=== PATIENT | male | born 1960 | race Caucasian/White ===

== ENCOUNTER 2020-06-15 08:09 | Emergency (ER) | payer MEDICARE, SELFPAY ==
[2020-06-15] VITALS (12 sets, daily range): BP systolic 141–175; BP diastolic 100–119; PULSE 89–130; RESP 14–90; O2SAT 92–100; BMI 28.7
--- NOTE | 2020-06-15 08:15 | CT_ITS ---
WS: [id number] CT HEAD NONCONTRAST HISTORY: AMS/new onset seizures TECHNIQUE: Contiguous axial imaging performed through the brain in 2.5 mm imaging. Bone and soft tiss ue windows. Sagittal and coronal reformats reviewed. All CT scans at [facility] use at le ast one of these dose optimization techniques: automated exposure control; mA and/or kV adjustment pe r patient size (includes targeted exams where dose is matched to clinical indication); or iterative r econstruction. DLP: 873.59 mGy.cm COMPARISON: None available. No acute intracranial hemorrhage, midline shift or mass effect. No atrophy or prior infarcts or herniation. Ventricles: Normal size with no hydrocephalus. Paranasal sinuses: Small amount mucoperiosteal thickening LEFT maxillary sinus. No air-fluid levels. Mastoid air cells: Well pneumatized. Calvarium and scalp: Skull is intact with no soft tissue edema or swelling. CT/CT head wo con* [id number] IMPRESSION: 1. No acute intracranial hemorrhage or edema. 2. Sapp-white matter differentiation intact.
--- NOTE | 2020-06-15 08:15 | ECG_ITS ---
[facility] Test Date: 2020-06-15 Pat Name: Ang Yadav Department: Room: Gender: Male Drill Press Hand: : 1960 Requested By: Shay Peterson Order Number: [id number] Nicholas MD: Judith Blanc M.D. Measurements Intervals [place] Rate: 125 P: NV: QRS: 88 QRSD: 109 T: 58 QT: 348 QTc: 503 Interpretive Statements POSSIBLY SINUS TACHYCARDIA MODERATE ST DEPRESSION [0.05+ mV ST DEPRESSION] No previous ECG available for comparison Electronically Signed On 06-16-2020 13:50:35 MOTOR BIKE MECHANIC by Judith Blanc M.D. [email or web address]
--- NOTE | 2020-06-15 08:23 | ED_ITS ---
HPI - Seizure General: Chief Complaint: Seizure Stated Complaint: AMS/ PAIN Time Seen by Provider: 06/15/20 08:15 History of Present Illness: HPI Narrative: 59-year-old male with a history of chronic back pain with radicular symptoms and aortic aneurysm. Patient had altered mental status this morning and EMS was called on arrival he was somewhat combative and confused. As they arrived at the hospital patient began having tonic-clonic seizures which I witnessed in the trauma bay. Lasted for approximately 2 minutes. Family reported he is not had a history of seizures in the past. He is on gabapentin for chronic pain. Patient is postictal when he seen cannot provide any history. MD complaint: seizure Onset (ago): hour(s) Description of Episode: loss of consciousness and tonic-clonic movement Duration of episode: 2 -: minutes(s) Witnessed: Yes - by Other (myself) Trauma: No Seizure History: No Place: Home Treatments prior to arrival: none Review of Systems General: Reports: ROS unobtainable due to medical condition PFSH ED PFSH: Medical History Spinal cord injury Physical Exam HENMT: COMMON NORMALS: normocephalic and atraumatic HEAD & SCALP: normocephalic and atraumatic Neck/C-Spine: COMMON NORMALS: no JVD Resp: COMMON NORMALS: normal respiratory effort, No retractions, No use of accessory muscles and clear to auscultation bilaterally AUSCULTATION: clear to auscultation bilaterally Cardio: COMMON NORMALS: no JVD, regular rate, regular rhythm and No murmurs present (Cardio) RATE: regular rate RHYTHM: regular rhythm GI: COMMON NORMALS: Soft to palpation and No hepatosplenomegaly present AUSCULTATION: Yes normoactive bowel sounds PALPATION: Yes Soft to palpation, No Tenderness to palpation present (GI), No Guarding due to palpation present (GI) and Yes No hepatosplenomegaly present Extremity: COMMON NORMALS: normal to inspection, capillary refill normal, no clubbing, cyanosis or edema, no calf tenderness and no pedal edema Neuro: OTHER: Witnessed 2-minute seizure on arrival. Patient is postictal at this time Skin: COMMON NORMALS: no rashes or lesions noted GENERAL SKIN EXAM: no rashes or lesions noted Procedures Intubation sedative: Etomidate Mg Given: 30 paralytic: Succinylcholine Mg Given: 100 Laryngoscope: fiber optic video scope Assist Device Used: fiber optic device ET Tube Size: 8.5 ET Tube Uncuffed: No Tube Secured Depth (cm): 22 Tube Secured Location: teeth Tube Placement Confirmation: visualized tube passing through cords, equal breath sounds bilaterally, no breath sounds over epigastrium and confirmation by capnometry Patient Tolerated Procedure: well Intubation Complications: none Lumbar Puncture Time Out Performed: Yes Patient Position: left lateral decubitus Skin Prep: Povidone-Iodine 1% Local Anesthetic: lidocaine 1% Amount of anesthesia used (mL): 3 Spinal Needle Gauge: 22G Interspace Used: L3-L4 Fluid Initially Obtained: clear Complications: none Course Vital Signs: Vital signs: Vital Signs Pulse Rate 89 06/15/20 15:26 Respiratory Rate 14 06/15/20 15:26 Blood Pressure 169/118 06/15/20 15:26 Pulse Oximetry 92 06/15/20 15:26 MDM - Seizure MDM Narrative: Medical decision making narrative: Patient had several more seizures while he was here he was titrated up with Ativan and then he began having respiratory difficulty he was emergently intubated and then maintained on sedation. At various times he is a little difficult to sedate ultimately was transferred to [facility] to the neuro unit for further evaluation lumbar tap was done which was negative fluid was clear there is no sign of infection. Concerned about sepsis needs further evaluation for his seizures we have no available ICU beds here. Lab Data: Labs: Lab Results 06/15/20 06/15/20 06/15/20 Range/Units 07:55 07:55 07:55 WBC 24.2 H (4.0-10.0) 10^3/ uL RBC 5.48 H (4.1-5.3) 10^6/u L Hgb 16.8 H (11.7-16.6) g/dL Hct 50.5 (42.0-52.0) % MCV 92.2 (80-94) fL MCH 30.7 (28.0-34.0) pg MCHC 33.3 (30.0-36.0) g/dL RDW 12.8 (12.1-15.1) % Plt Count 326 (130-400) 10^3/c mm MPV 11.3 H (7.4-10.4) fL Neut % (Auto) 78.1 % Lymph % (Auto) 12.6 % [place] % (Auto) 5.9 % Eos % (Auto) 0.6 % Baso % (Auto) 0.4 % Neut # (Auto) 18.90 H (1.8-7.7) 10^3/u L Lymph # (Auto) 3.0 (0.8-4.8) 10^3/u L [place] # (Auto) 1.4 H (0.2-0.9) 10^3/u L Eos # (Auto) 0.1 (0.0-0.8) 10^3/u L Baso # (Auto) 0.1 (0.0-0.1) 10^3/u L Nucleated RBC % (a uto) 0 % Nucleated RBCs # 0.0 /100WBC PT (12.1-14.9) SECO NDS INR (0.8-1.2) APTT (23.9-36.7) SECO NDS Specimen Type Sample Site ABG pH (7.35-7.45) ABG pCO2 (35-45) mmHg ABG pO2 (80.0-100.0) mmH g ABG HCO3 (22-26) mmol/L ABG O2 Saturation ABG Base Excess (-2.0-2.0) mmol/ L Joe Test A-a O2 Gradient Hematocrit (42-52) % Hgb O2 Saturation (95-100) % Carboxyhemoglobin (0.4-20.1) %THgb Methemoglobin (0.4-1.5) % Total Hemoglobin (14-18) g/dL Ionized Calcium (1.1-1.4) mmol/L O2 Delivery Device FiO2 % Specimen Drawn By Aws Software Development Engineer ID Crit Value Read Ba ck Blood Gas Notified Time Sodium 141 (136-145) mmol/L Potassium 3.7 (3.5-5.1) mmol/L Chloride 100 (98-107) mmol/L Carbon Dioxide 20 L (22-29) mmol/L Anion Gap 24.7 H (5-19) BUN 18 (6-20) mg/dL Creatinine 0.9 (0.7-1.2) mg/dL GFR Calculation 87.0 L (90-130) mL/min Glucose 109 (65-115) mg/dL Calculated Osmolal ity 294 (285-295) mOsm/k g Lactate (0.5-2.2) mmol/L Calcium 10.3 (8.5-10.5) mg/dL Magnesium 2.0 (1.7-2.3) mg/dL Total Bilirubin 0.6 (0.15-1.2) mg/dL AST 20 (0-40) U/L ALT 15 (0-41) U/L Alkaline Phosphata se 131 H (40-130) IU/L Creatine Kinase 217 (39-308) U/L Troponin T Baselin e 25 H (0-15) ng/L Troponin T 120 Min [place] (0-15) ng/L Delta Troponin T (0-10) ABS# Total Protein 7.8 (6.6-8.7) g/dL Albumin 4.8 (3.5-5.2) g/dL Globulin 3.0 (1.3-4.6) g/dL Urine Color (Yellow) Urine Appearance (CLEAR) Urine pH (5-7) Ur Specific Gravit y (1.005-1.030) Urine Protein (Negative) Urine Glucose (UA) (Normal) Urine Ketones (Negative) Urine Blood (Negative) Urine Nitrate (Negative) Urine Bilirubin (Negative) Urine Urobilinogen (Negative) mg/dL Ur Leukocyte Maude ase (Negative) Urine RBC (0-2) /hpf Urine WBC (0-5) /hpf Ur Squamous Epith Cells (0-5) /hpf Amorphous Sediment Urine Bacteria (NONE) /hpf Urine Mucus /hpf Urine Sperm /hpf CSF Appearance (CLEAR) CSF Color (COLORLESS) CSF WBC (0-5) /uL CSF RBC (0-0) 10^3/uL CSF Mononuclear # Auto (50-90) 10^3/uL CSF Mononuclear WB Cs % (50-90) % CSF Polynuclear WB Cs # (0-10) 10^3/uL CSF Polynuclear WB Cs % (0-10) % CSF Total Protein (15-45) mg/dL Urine Opiates Scre en (Negative) ng/mL Ur Barbiturates Sc reen (Negative) ng/mL Ur Phencyclidine S crn (Negative) ng/mL Ur Amphetamines Sc reen (Negative) ng/mL U Benzodiazepines Scrn (Negative) ng/mL Urine Cocaine Scre en (Negative) ng/mL U Marijuana (THC) Screen (Negative) ng/mL SARS-CoV-2 Ag (Rap id) (Negative) 06/15/20 06/15/20 06/15/20 Range/Units 08:49 09:00 09:17 WBC (4.0-10.0) 10^3/ uL RBC (4.1-5.3) 10^6/u L Hgb (11.7-16.6) g/dL Hct (42.0-52.0) % MCV (80-94) fL MCH (28.0-34.0) pg MCHC (30.0-36.0) g/dL RDW (12.1-15.1) % Plt Count (130-400) 10^3/c mm MPV (7.4-10.4) fL Neut % (Auto) % Lymph % (Auto) % [place] % (Auto) % Eos % (Auto) % Baso % (Auto) % Neut # (Auto) (1.8-7.7) 10^3/u L Lymph # (Auto) (0.8-4.8) 10^3/u L [place] # (Auto) (0.2-0.9) 10^3/u L Eos # (Auto) (0.0-0.8) 10^3/u L Baso # (Auto) (0.0-0.1) 10^3/u L Nucleated RBC % (a uto) % Nucleated RBCs # /100WBC PT (12.1-14.9) SECO NDS INR (0.8-1.2) APTT (23.9-36.7) SECO NDS Specimen Type Arterial Sample Site Rr ABG pH 7.28 L (7.35-7.45) ABG pCO2 42.6 (35-45) mmHg ABG pO2 453.0 H (80.0-100.0) mmH g ABG HCO3 19.8 L (22-26) mmol/L ABG O2 Saturation Not Reportable ABG Base Excess -6.8 L (-2.0-2.0) mmol/ L Joe Test Pos A-a O2 Gradient Not Reportable Hematocrit 52.6 H (42-52) % Hgb O2 Saturation 99.0 (95-100) % Carboxyhemoglobin 0.5 (0.4-20.1) %THgb Methemoglobin 0.5 (0.4-1.5) % Total Hemoglobin 17.2 (14-18) g/dL Ionized Calcium 1.1 (1.1-1.4) mmol/L O2 Delivery Device Nrb FiO2 100.0 % Specimen Drawn By Monro Aws Software Development Engineer ID Monro Crit Value Read Ba ck [facility] Blood Gas Notified Time 0910 Sodium 146.0 H (136-145) mmol/L Potassium 3.8 (3.5-5.1) mmol/L Chloride (98-107) mmol/L Carbon Dioxide (22-29) mmol/L Anion Gap (5-19) BUN (6-20) mg/dL Creatinine (0.7-1.2) mg/dL GFR Calculation (90-130) mL/min Glucose 133.0 H (65-115) mg/dL Calculated Osmolal ity (285-295) mOsm/k g Lactate 14.9 H* (0.5-2.2) mmol/L Calcium (8.5-10.5) mg/dL Magnesium (1.7-2.3) mg/dL Total Bilirubin (0.15-1.2) mg/dL AST (0-40) U/L ALT (0-41) U/L Alkaline Phosphata se (40-130) IU/L Creatine Kinase (39-308) U/L Troponin T Baselin e (0-15) ng/L Troponin T 120 Min [place] (0-15) ng/L Delta Troponin T (0-10) ABS# Total Protein (6.6-8.7) g/dL Albumin (3.5-5.2) g/dL Globulin (1.3-4.6) g/dL Urine Color Yellow (Yellow) Urine Appearance Cloudy (CLEAR) Urine pH 5.0 (5-7) Ur Specific Gravit y 1.025 (1.005-1.030) Urine Protein 1+ H (Negative) Urine Glucose (UA) Norm (Normal) Urine Ketones 2+ H (Negative) Urine Blood 3+ H (Negative) Urine Nitrate Negative (Negative) Urine Bilirubin Neg (Negative) Urine Urobilinogen Norm (Negative) mg/dL Ur Leukocyte Maude ase Negative (Negative) Urine RBC 10-15 H (0-2) /hpf Urine WBC None (0-5) /hpf Ur Squamous Epith Cells 0-4 H (0-5) /hpf Amorphous Sediment Not Reportable Urine Bacteria 2+ H (NONE) /hpf Urine Mucus Trace /hpf Urine Sperm 3+ /hpf CSF Appearance (CLEAR) CSF Color (COLORLESS) CSF WBC (0-5) /uL CSF RBC (0-0) 10^3/uL CSF Mononuclear # Auto (50-90) 10^3/uL CSF Mononuclear WB Cs % (50-90) % CSF Polynuclear WB Cs # (0-10) 10^3/uL CSF Polynuclear WB Cs % (0-10) % CSF Total Protein (15-45) mg/dL Urine Opiates Scre en (Negative) ng/mL Ur Barbiturates Sc reen (Negative) ng/mL Ur Phencyclidine S crn (Negative) ng/mL Ur Amphetamines Sc reen (Negative) ng/mL U Benzodiazepines Scrn (Negative) ng/mL Urine Cocaine Scre en (Negative) ng/mL U Marijuana (THC) Screen (Negative) ng/mL SARS-CoV-2 Ag (Rap id) (Negative) 06/15/20 06/15/20 06/15/20 Range/Units 09:17 10:18 10:18 WBC (4.0-10.0) 10^3/ uL RBC (4.1-5.3) 10^6/u L Hgb (11.7-16.6) g/dL Hct (42.0-52.0) % MCV (80-94) fL MCH (28.0-34.0) pg MCHC (30.0-36.0) g/dL RDW (12.1-15.1) % Plt Count (130-400) 10^3/c mm MPV (7.4-10.4) fL Neut % (Auto) % Lymph % (Auto) % [place] % (Auto) % Eos % (Auto) % Baso % (Auto) % Neut # (Auto) (1.8-7.7) 10^3/u L Lymph # (Auto) (0.8-4.8) 10^3/u L [place] # (Auto) (0.2-0.9) 10^3/u L Eos # (Auto) (0.0-0.8) 10^3/u L Baso # (Auto) (0.0-0.1) 10^3/u L Nucleated RBC % (a uto) % Nucleated RBCs # /100WBC PT 14.20 (12.1-14.9) SECO NDS INR 1.07 (0.8-1.2) APTT 30.3 (23.9-36.7) SECO NDS Specimen Type Sample Site ABG pH (7.35-7.45) ABG pCO2 (35-45) mmHg ABG pO2 (80.0-100.0) mmH g ABG HCO3 (22-26) mmol/L ABG O2 Saturation ABG Base Excess (-2.0-2.0) mmol/ L Joe Test A-a O2 Gradient Hematocrit (42-52) % Hgb O2 Saturation (95-100) % Carboxyhemoglobin (0.4-20.1) %THgb Methemoglobin (0.4-1.5) % Total Hemoglobin (14-18) g/dL Ionized Calcium (1.1-1.4) mmol/L O2 Delivery Device FiO2 % Specimen Drawn By Aws Software Development Engineer ID Crit Value Read Ba ck Blood Gas Notified Time Sodium (136-145) mmol/L Potassium (3.5-5.1) mmol/L Chloride (98-107) mmol/L Carbon Dioxide (22-29) mmol/L Anion Gap (5-19) BUN (6-20) mg/dL Creatinine (0.7-1.2) mg/dL GFR Calculation (90-130) mL/min Glucose (65-115) mg/dL Calculated Osmolal ity (285-295) mOsm/k g Lactate (0.5-2.2) mmol/L Calcium (8.5-10.5) mg/dL Magnesium (1.7-2.3) mg/dL Total Bilirubin (0.15-1.2) mg/dL AST (0-40) U/L ALT (0-41) U/L Alkaline Phosphata se (40-130) IU/L Creatine Kinase (39-308) U/L Troponin T Baselin e (0-15) ng/L Troponin T 120 Min [place] 25.16 H (0-15) ng/L Delta Troponin T 0.16 (0-10) ABS# Total Protein (6.6-8.7) g/dL Albumin (3.5-5.2) g/dL Globulin (1.3-4.6) g/dL Urine Color (Yellow) Urine Appearance (CLEAR) Urine pH (5-7) Ur Specific Gravit y (1.005-1.030) Urine Protein (Negative) Urine Glucose (UA) (Normal) Urine Ketones (Negative) Urine Blood (Negative) Urine Nitrate (Negative) Urine Bilirubin (Negative) Urine Urobilinogen (Negative) mg/dL Ur Leukocyte Maude ase (Negative) Urine RBC (0-2) /hpf Urine WBC (0-5) /hpf Ur Squamous Epith Cells (0-5) /hpf Amorphous Sediment Urine Bacteria (NONE) /hpf Urine Mucus /hpf Urine Sperm /hpf CSF Appearance (CLEAR) CSF Color (COLORLESS) CSF WBC (0-5) /uL CSF RBC (0-0) 10^3/uL CSF Mononuclear # Auto (50-90) 10^3/uL CSF Mononuclear WB Cs % (50-90) % CSF Polynuclear WB Cs # (0-10) 10^3/uL CSF Polynuclear WB Cs % (0-10) % CSF Total Protein (15-45) mg/dL Urine Opiates Scre en Negative (Negative) ng/mL Ur Barbiturates Sc reen Negative (Negative) ng/mL Ur Phencyclidine S crn Negative (Negative) ng/mL Ur Amphetamines Sc reen Negative (Negative) ng/mL U Benzodiazepines Scrn Negative (Negative) ng/mL Urine Cocaine Scre en Negative (Negative) ng/mL U Marijuana (THC) Screen Positive H (Negative) ng/mL SARS-CoV-2 Ag (Rap id) (Negative) 06/15/20 06/15/20 Range/Units 11:49 14:19 WBC (4.0-10.0) 10^3/ uL RBC (4.1-5.3) 10^6/u L Hgb (11.7-16.6) g/dL Hct (42.0-52.0) % MCV (80-94) fL MCH (28.0-34.0) pg MCHC (30.0-36.0) g/dL RDW (12.1-15.1) % Plt Count (130-400) 10^3/c mm MPV (7.4-10.4) fL Neut % (Auto) % Lymph % (Auto) % [place] % (Auto) % Eos % (Auto) % Baso % (Auto) % Neut # (Auto) (1.8-7.7) 10^3/u L Lymph # (Auto) (0.8-4.8) 10^3/u L [place] # (Auto) (0.2-0.9) 10^3/u L Eos # (Auto) (0.0-0.8) 10^3/u L Baso # (Auto) (0.0-0.1) 10^3/u L Nucleated RBC % (a uto) % Nucleated RBCs # /100WBC PT (12.1-14.9) SECO NDS INR (0.8-1.2) APTT (23.9-36.7) SECO NDS Specimen Type Sample Site ABG pH (7.35-7.45) ABG pCO2 (35-45) mmHg ABG pO2 (80.0-100.0) mmH g ABG HCO3 (22-26) mmol/L ABG O2 Saturation ABG Base Excess (-2.0-2.0) mmol/ L Joe Test A-a O2 Gradient Hematocrit (42-52) % Hgb O2 Saturation (95-100) % Carboxyhemoglobin (0.4-20.1) %THgb Methemoglobin (0.4-1.5) % Total Hemoglobin (14-18) g/dL Ionized Calcium (1.1-1.4) mmol/L O2 Delivery Device FiO2 % Specimen Drawn By Aws Software Development Engineer ID Crit Value Read Ba ck Blood Gas Notified Time Sodium (136-145) mmol/L Potassium (3.5-5.1) mmol/L Chloride (98-107) mmol/L Carbon Dioxide (22-29) mmol/L Anion Gap (5-19) BUN (6-20) mg/dL Creatinine (0.7-1.2) mg/dL GFR Calculation (90-130) mL/min Glucose (65-115) mg/dL Calculated Osmolal ity (285-295) mOsm/k g Lactate (0.5-2.2) mmol/L Calcium (8.5-10.5) mg/dL Magnesium (1.7-2.3) mg/dL Total Bilirubin (0.15-1.2) mg/dL AST (0-40) U/L ALT (0-41) U/L Alkaline Phosphata se (40-130) IU/L Creatine Kinase (39-308) U/L Troponin T Baselin e (0-15) ng/L Troponin T 120 Min [place] (0-15) ng/L Delta Troponin T (0-10) ABS# Total Protein (6.6-8.7) g/dL Albumin (3.5-5.2) g/dL Globulin (1.3-4.6) g/dL Urine Color (Yellow) Urine Appearance (CLEAR) Urine pH (5-7) Ur Specific Gravit y (1.005-1.030) Urine Protein (Negative) Urine Glucose (UA) (Normal) Urine Ketones (Negative) Urine Blood (Negative) Urine Nitrate (Negative) Urine Bilirubin (Negative) Urine Urobilinogen (Negative) mg/dL Ur Leukocyte Maude ase (Negative) Urine RBC (0-2) /hpf Urine WBC (0-5) /hpf Ur Squamous Epith Cells (0-5) /hpf Amorphous Sediment Urine Bacteria (NONE) /hpf Urine Mucus /hpf Urine Sperm /hpf CSF Appearance Clear (CLEAR) CSF Color Colorless (COLORLESS) CSF WBC 1 (0-5) /uL CSF RBC 0 (0-0) 10^3/uL CSF Mononuclear # Auto 0.001 L (50-90) 10^3/uL CSF Mononuclear WB Cs % 100 H (50-90) % CSF Polynuclear WB Cs # 0.000 (0-10) 10^3/uL CSF Polynuclear WB Cs % 0 (0-10) % CSF Total Protein 37 (15-45) mg/dL Urine Opiates Scre en (Negative) ng/mL Ur Barbiturates Sc reen (Negative) ng/mL Ur Phencyclidine S crn (Negative) ng/mL Ur Amphetamines Sc reen (Negative) ng/mL U Benzodiazepines Scrn (Negative) ng/mL Urine Cocaine Scre en (Negative) ng/mL U Marijuana (THC) Screen (Negative) ng/mL SARS-CoV-2 Ag (Rap id) Negative (Negative) Critical Care Time Critical Care Time: Critical Care Time: Yes Total Critical Care Time: 60 Attestation: This case had a high probability of a clinically significant, sudden, or life threatening deterioration of this patient's condition which required my full and direct attention, intervention and personal management. Discharge Plan Discharge Patient Disposition: Admitted As Inpatient Clinical Impression: New onset seizure, Sepsis Condition: Stable Coding Level of Care Code ED Electronic Service Technician for Sixto Fwd Exam Detailed
[2020-06-15] MEDS: LORazepam 2 mg/mL INJ 1 mL ×2 (08:28→08:41)
[2020-06-15] MEDS: LORazepam 2 mg/mL INJ 1 mL IVP (08:44)
[2020-06-15] MEDS: succinylcholine 20 mg/mL SDV 10mL 150 MG IVP (08:58)
--- NOTE | 2020-06-15 09:01 | XR_ITS ---
WS: [id number] Portable AP supine chest, 06/15/2020 Clinical Data: post intubation Comparison: None. Findings: The endotracheal tube is above the estrada. There is a nasogastric tube which probably ends in the stomach. There are monitor leads on the chest wall. No acute cardiopulmonary disease is seen. XR/XR chest 1V portable [id number] Impression: Satisfactory placement of nasogastric tube and endotracheal tube.
[2020-06-15] MEDS: midazolam 1 mg/mL INJ 2 mL 3 MG IVP (09:02)
[2020-06-15 09:04] LABS: Basophils # 0.1 10^3/uL (0.0-0.1); Basophils % 0.4 %; Eosinophils # 0.1 10^3/uL (0.0-0.8); Eosinophils % 0.6 %; Hematocrit 50.5 % (42.0-52.0); Hemoglobin 16.8 g/dL (11.7-16.6); Lymphocytes % 12.6 %; Mean Corpuscular HGB Conc 33.3 g/dL (30.0-36.0); Mean Corpuscular Hemoglobin 30.7 pg (28.0-34.0); Mean Corpuscular Volume 92.2 fL (80-94); Mean Platelet Volume 11.3 fL (7.4-10.4); Monocytes # 1.4 10^3/uL (0.2-0.9); Monocytes % 5.9 %; Neutrophils % 78.1 %; Nucleated Red Blood Cells % 0 %; Platelet Count 326 10^3/cmm (130-400); Red Blood Count 5.48 10^6/uL (4.1-5.3); Red Cell Distribution Width 12.8 % (12.1-15.1); White Blood Count 24.2 10^3/uL (4.0-10.0)
[2020-06-15 09:21] LABS: Alanine Aminotransferase 15 U/L (0-41); Albumin Level 4.8 g/dL (3.5-5.2); Alkaline Phosphatase 131 IU/L (40-130); Anion Gap 24.7 (5-19); Aspartate Amino Transferase 20 U/L (0-40); Blood Urea Nitrogen 18 mg/dL (6-20); Calcium 10.3 mg/dL (8.5-10.5); Carbon Dioxide 20 mmol/L (22-29); Chloride 100 mmol/L (98-107); Creatine Phosphokinase 217 U/L (39-308); Glucose 109 mg/dL (65-115); Osmolality Calculated 294 mOsm/kg (285-295); Potassium 3.7 mmol/L (3.5-5.1); Sodium 141 mmol/L (136-145); Total Bilirubin 0.6 mg/dL (0.15-1.2); Total Protein 7.8 g/dL (6.6-8.7); Troponin(5th) Baseline 25 ng/L (0-15)
--- NOTE | 2020-06-15 09:39 | PC.NURSE ---
portable chest xray in room
[2020-06-15 09:43] LABS: Lactate (Lactic Acid level) 14.9 mmol/L (0.5-2.2)
[2020-06-15 09:44] LABS: ABG PCO2 42.6 mmHg (35-45); ABG PH Result 7.28 (7.35-7.45); Base Excess ABG -6.8 mmol/L (-2.0-2.0); HCO3 ABG 19.8 mmol/L (22-26)
[2020-06-15 09:45] LABS: Blood Gas Allen Test POS; Blood Gas Operator Identificat MONRO; Potassium Level - ABG 3.8 mmol/L (3.5-5.0)
[2020-06-15 09:48] LABS: Blood Gas CCRB By MONRO; Blood Gas Drawn By MONRO; Oxygen Device NRB
[2020-06-15 09:49] LABS: Arterial Blood Gas Hematocrit 52.6 % (42-52); Blood Gas Sample Site RR; Blood Gas Sample Type ARTERIAL; Carboxyhemoglobin 0.5 %THgb (0.4-20.1); Ionized Calcium Level - ABG 1.1 mmol/L (1.1-1.4); Methemoglobin 0.5 % (0.4-1.5); Total Hemoglobin 17.2 g/dL (14-18)
[2020-06-15] MEDS: fentaNYL 50 mcg/mL INJ 2mL 100 MCG IVP (09:53)
--- NOTE | 2020-06-15 09:53 | PC.NURSE ---
pt to CT by stretcher with LUIS zamora, and RT
[2020-06-15 10:32] LABS: Add Urine Microscopic? YES; Bilirubin Urine Neg (Negative); Blood Urine 3+ (Negative); Glucose Urine UA Norm (Normal); Ketones Urine 2+ (Negative); Leukocyte Esterase Urine Negative (Negative); Nitrate Urine Negative (Negative); Protein Urine 1+ (Negative); Specific Gravity, Urine 1.025 (1.005-1.030); Urine Appearance Cloudy (CLEAR); Urine Color Yellow (Yellow); Urobilinogen Urine Norm (Negative)
[2020-06-15 10:35] LABS: Add Urine Culture? No; Bacteria Urine 2+ /hpf; Mucus Urine TRACE /hpf; Sperm Urine 3+ /hpf; Squamous Epithelial Cell Urine 0-4 /hpf (0-5)
[2020-06-15 10:48] LABS: INR 1.07 (0.8-1.2)
[2020-06-15 10:49] LABS: Partial Thromboplastin Time 30.3 SECONDS (23.9-36.7)
[2020-06-15 10:57] LABS: Troponin 5 2HR 25.16 ng/L (0-15); Troponin 5 2HR Delta 0.16 ABS# (0-10)
[2020-06-15 11:22] LABS: Amphetamines Screen Urine Negative (Negative); Barbiturates Screen Urine Negative (Negative); Benzodiazepines Screen Urine Negative (Negative); Cocaine Screen Urine Negative (Negative); Opiate Screen Urine Negative (Negative); PCP Screen Urine Negative (Negative); THC Screen Urine Positive (Negative)
[2020-06-15] MEDS: midazolam 1 mg/mL INJ 2 mL 5 MG IVP (11:27)
[2020-06-15 13:06] LABS: CSF Mononuclear # 0.001 10^3/uL (50-90); Mononuclear WBC CSF % 100 % (50-90); Polynuclear WBC CSF % 0 % (0-10); Red Blood Cell CSF 0 10^3/uL (0-0); White Blood Cell CSF 1 /uL (0-5)
[2020-06-15 13:29] LABS: Appearance CSF CLEAR (CLEAR); Color CSF COLORLESS (COLORLESS); Total Protein CSF 37 mg/dL (15-45)
[2020-06-15] MEDS: propofol 1,000 MG/100 ML INJ 5.4 MG IV (13:50)
[2020-06-15] MEDS: propofol 10 mg/mL SDV 20 mL 100 MG IVP (14:42)
[2020-06-15 14:53] LABS: SARS Covid-2 Antigen Negative (Negative)
[2020-06-15] MEDS: dexmedetomidine 400 MCG in sodium chloride 0.9% (100 ml) 100 ML 11.8 MCG IV (15:50)
[2020-06-15] MEDS: propofol 1,000 MG/100 ML INJ 27.2 MG IV (16:25)
--- NOTE | 2020-06-16 09:03 | PC.NURSE ---
PAtient has 1/4 Blood culture positive for gram+ cocci in clusters
== END 2020-06-15 16:30 | disposition admitted as inpatient to this hospital (09) ==
PROVIDERS: Nurse Practitioner Family; Emergency Provider Family Medicine
DX: G40.802 Other epilepsy, not intractable, without status epilepticus (principal)
CPT/HCPCS: 12345; 31500; 36415; 36600; 51702; 62270; 70450; 71045; 80051; 80053; 80306; 80500; 81001; 82330; 82550; 82805; 83605; 83735; 84157; 84484; 85025; 85610; 85730; 87040; 87070; 87075; 87205; 87426; 89050; 93005; 94002; 94799; 96365; 96366; 96367; 96368; 96375; 99284; 99291; 99292; J0330; J1953; J2060; J2250; J2704; J3010; J3490

== ENCOUNTER → 2020-08-09 13:09 | Outpatient (BNVA) | payer MEDICARE, SELFPAY | PROVIDERS: PCP Internal Medicine; Visit Provider Specialist | DX: G40.309 Generalized idiopathic epilepsy and epileptic syndromes, not intractable, without status epilepticus (principal) | CPT/HCPCS: 95816 ==

== ENCOUNTER → 2020-08-21 08:21 | Outpatient (BNVA) | payer MEDICARE, SELFPAY | PROVIDERS: PCP Internal Medicine; Visit Provider Specialist | DX: G40.309 Generalized idiopathic epilepsy and epileptic syndromes, not intractable, without status epilepticus (principal); F17.210 Nicotine dependence, cigarettes, uncomplicated | CPT/HCPCS: 99203; 99204 ==

== ENCOUNTER → 2021-11-19 14:48 | Outpatient (BNVA) | payer MEDICARE, SELFPAY | PROVIDERS: Visit Provider Family Medicine | DX: E78.2 Mixed hyperlipidemia (principal); G40.309 Generalized idiopathic epilepsy and epileptic syndromes, not intractable, without status epilepticus; I71.4 Abdominal aortic aneurysm, without rupture; M25.512 Pain in left shoulder; Z76.89 Persons encountering health services in other specified circumstances; Z86.010 Personal history of colon polyps; Z12.11 Encounter for screening for malignant neoplasm of colon | CPT/HCPCS: 80053; 80061; 84153; 84439; 84443; 85025; 86803; 87806 ==

== ENCOUNTER 2022-03-18 17:22 | Emergency (ER) | payer MEDICARE, SELFPAY ==
[2022-03-18] VITALS (7 sets, daily range): BP systolic 113–161; BP diastolic 65–85; PULSE 64–82; RESP 16–20; TEMP 36.9; O2SAT 92–97; BMI 21.9
--- NOTE | 2022-03-18 18:10 | ECG_ITS ---
[facility] Test Date: 2022-03-18 Pat Name: Ang Yadav Department: Room: Gender: Male Director Financial Planning: : 1960 Requested By: Shay Peterson Order Number: [id number] Nicholas MD: Yoel Balderas M.D. Measurements Intervals [place] Rate: 70 P: 51 CA: 163 QRS: 71 QRSD: 116 T: 33 QT: 380 QTc: 412 Interpretive Statements SINUS RHYTHM MODERATE INTRAVENTRICULAR CONDUCTION DELAY [110+ ms QRS DURATION] Compared to ECG 06/15/2020 09:04:25 Intraventricular conduction delay now present Sinus tachycardia no longer present ST (T wave) deviation no longer present Electronically Signed On 03-18-2022 21:27:55 CDT by Yoel Balderas M.D. [email or web address]
--- NOTE | 2022-03-18 18:12 | XRR_ITS ---
PROCEDURE INFORMATION: Exam: XR Chest Exam date and time: 03/18/2022 7:06 PM Age: 61 years old Clinical indication: Shortness of breath; Patient HX: Low BP; Additional info: SOB TECHNIQUE: Imaging protocol: Radiologic exam of the chest. Views: 1 view. COMPARISON: CR XR chest 1V portable [id number] 06/15/2020 9:34 AM FINDINGS: Lungs: Unremarkable. No consolidation. Pleural spaces: Unremarkable. No pleural effusion. No pneumothorax. Heart/Mediastinum: Unremarkable. No cardiomegaly. Bones/joints: Unremarkable. XR/XR chest 1V portable [id number] IMPRESSION: No acute findings.
--- NOTE | 2022-03-18 19:13 | CTR_ITS ---
PROCEDURE INFORMATION: Exam: CTA Head With Contrast, Arteriography Exam date and time: 03/18/2022 8:27 PM Age: 61 years old Clinical indication: Pain; Headache; Patient HX: C/O left sided BRICENO with hypertension and general weakness. History of labile blood pressure. ; Additional info: Worsing headache, PT states HX of blocked artery in neck, TECHNIQUE: Imaging protocol: Computed tomographic angiography of the head with contrast. Exam focused on the arteries. 3D rendering (Not supervised by radiologist): MIP and/or 3D reconstructed images were created by the technologist. Radiation optimization: All CT scans at this facility use at least one of these dose optimization techniques: automated exposure control; mA and/or kV adjustment per patient size (includes targeted exams where dose is matched to clinical indication); or iterative reconstruction. Contrast material: OMNI 350; Contrast volume: 95 ml; Contrast route: INTRAVENOUS (IV); COMPARISON: CT head wo con* [id number] 06/15/2020 9:45 AM RADIATION DOSE METRICS: Total DLP (mGy-cm): 1034.12 FINDINGS: ANTERIOR CIRCULATION: Right internal carotid artery: Intracranial segment is patent with no significant stenosis. No aneurysm. Right middle cerebral artery: No occlusion or significant stenosis. No aneurysm. Right anterior cerebral artery: No occlusion or significant stenosis. No aneurysm. Left internal carotid artery: Intracranial segment is patent with no significant stenosis. No aneurysm. Left middle cerebral artery: No occlusion or significant stenosis. No aneurysm. Left anterior cerebral artery: No occlusion or significant stenosis. No aneurysm. POSTERIOR CIRCULATION: Right vertebral artery: The right vertebral artery is hypoplastic as it enters the foramen magnum up to its confluence at the basilar. Left vertebral artery: No occlusion or significant stenosis. No aneurysm. Basilar artery: No occlusion or significant stenosis. No aneurysm. Right posterior cerebral artery: There is a origin right DIRECTOR PERSONAL. Left posterior cerebral artery: No occlusion or significant stenosis. No aneurysm. Brain: No definite mass, mass effect, or midline shift. Cerebral ventricles: No ventriculomegaly. Paranasal sinuses: Mucosal thickening in the ethmoid sinuses. Bones/joints: Unremarkable. No acute fracture. Soft tissues: Unremarkable. PROCEDURE INFORMATION: Exam: CTA Neck With Contrast Exam date and time: 03/18/2022 8:27 PM Age: 61 years old Clinical indication: Pain; Headache; Patient HX: C/O left sided BRICENO with hypertension and general weakness. History of labile blood pressure. ; Additional info: Worsing headache, PT states HX of blocked artery in neck, TECHNIQUE: Imaging protocol: Computed tomographic angiography of the neck with contrast. 3D rendering (Not supervised by radiologist): MIP and/or 3D reconstructed images were created by the technologist. Radiation optimization: All CT scans at this facility use at least one of these dose optimization techniques: automated exposure control; mA and/or kV adjustment per patient size (includes targeted exams where dose is matched to clinical indication); or iterative reconstruction. Contrast material: OMNI 350; Contrast volume: 95 ml; Contrast route: INTRAVENOUS (IV); COMPARISON: CT head wo con* [id number] 06/15/2020 9:45 AM RADIATION DOSE METRICS: Total DLP (mGy-cm): 1034.12 FINDINGS: Right common carotid artery: No stenosis. No dissection or occlusion. Right internal carotid artery: No stenosis of the extracranial segment. No dissection or occlusion. Right external carotid artery: No occlusion or stenosis of the origin. Left common carotid artery: No stenosis. No dissection or occlusion. Left internal carotid artery: No stenosis of the extracranial segment. No dissection or occlusion. Left external carotid artery: No occlusion or stenosis of the origin. Right vertebral artery: The right vertebral artery is diffusely hypoplastic with extremely tight stenosis at the origin. Left vertebral artery: No stenosis. No dissection or occlusion. Soft tissues: Normal. No significant soft tissue swelling. Bones/joints: No acute fracture. CT/CT angio headneck* [id number] IMPRESSION: No acute intracranial vascular abnormality. Hypoplastic right vertebral artery. IMPRESSION: No acute vascular abnormality. Extremely hypoplastic right vertebral artery. REFERENCES: NASCET CRITERIA. The degree of stenosis in the cervical segment of the internal carotid artery is based on NASCET criteria. Normal is no stenosis. Mild is less than 50% stenosis. Moderate is 50-69% stenosis. Severe is 70% to 99% stenosis. Total occlusion is no detectable patent lumen.
[2022-03-18 19:22] LABS: Basophils # 0.1 10^3/uL (0.0-0.1); Basophils % 0.6 %; Eosinophils # 0.3 10^3/uL (0.0-0.8); Eosinophils % 1.4 %; Hematocrit 46.3 % (42.0-52.0); Hemoglobin 15.3 g/dL (11.7-16.6); Lymphocytes # 4.5 10^3/uL (0.8-4.8); Lymphocytes % 19.1 %; Mean Corpuscular Hemoglobin 31.4 pg (28.0-34.0); Mean Corpuscular Volume 94.9 fl (80-94); Mean Platelet Volume 10.9 fL (7.4-10.4); Monocytes # 1.6 10^3/uL (0.2-0.9); Monocytes % 6.9 %; Neutrophils # 16.82 10^3/uL (1.8-7.7); Neutrophils % 71.4 %; Nucleated Red Blood Cells % 0 %; Platelet Count 292 10^3/cmm (130-400); Red Blood Count 4.88 10^6/uL (4.1-5.3); Red Cell Distribution Width 13.4 % (12.1-15.1); White Blood Count 23.6 10^3/uL (4.0-10.0)
[2022-03-18 19:41] LABS: Troponin T (5th) Once 21 ng/L (0-15)
[2022-03-18 19:42] LABS: Alanine Aminotransferase 10 U/L (0-41); Alkaline Phosphatase 95 U/L (40-130); Aspartate Amino Transferase 13 U/L (0-40); Blood Urea Nitrogen 10 mg/dL (6-20); Calcium 9.3 mg/dL (8.5-10.5); Carbon Dioxide 29 mmol/L (22-29); Chloride 98 mmol/L (98-107); Globulin 3.4 g/dL (1.3-4.6); Glomerular Filtration Rate 115.4 mL/min (90-130); Glucose 86 mg/dL (65-115); Magnesium 1.9 mg/dL (1.7-2.3); Osmolality Calculated 280 mOsm/kg (285-295); Sodium 136 mmol/L (136-145); Total Bilirubin 0.4 mg/dL (0.15-1.2); Total Protein 7.4 g/dL (6.6-8.7)
[2022-03-18] MEDS: diphenhydrAMINE 50 mg/mL SDV 1mL IVP (19:54)
--- NOTE | 2022-03-18 20:10 | W.ED.HA ---
HPI - Headache General: Chief Complaint: Headache Stated Complaint: BP problems Time Seen by Provider: 03/18/22 19:06 History of Present Illness: 61-year-old male presents with complaints of headache and fluctuating blood pressure. Patient reports that he has a history of chronic headaches however over the last couple days they have been getting significantly worse. He reports he has a blockage in the back of his neck and has not been evaluated in quite some time and thinks it is getting worse. Patient also reports he is has fluctuating blood pressures that seem to be high and low. Patient reports that he smokes marijuana and it came down following smoking. Patient reports that he went to his primary care provider who sent him over here because of his fluctuating blood pressure for further evaluation. Patient has some left arm pain is been going on for at least 2-1/2 weeks that he thinks might be related to a injury in clavicle. Patient denies fever, chills, nausea, vomiting. Associated symptoms: Deny chest pain, fever(s), nausea, rash or vomiting Review of Systems Const: Denies: fever(s) or chills ENMT: Denies: throat pain or ear or mastoid pain Card: Reports: other (Please see HPI); Denies: chest pain or palpitations Resp: Denies: dyspnea or productive cough GI: Denies: abdominal pain, nausea or vomiting : Denies: flank pain or difficulty urinating Musc: Reports: neck pain and joint pain; Denies: back pain Skin/Breast: Denies: rash or pruritus Neuro: Reports: headache(s); Denies: numbness in extremities, weakness in extremities, lack of coordination or dizziness Psych: Denies: anxiety or depression [facility] PFSH: Medical History Spinal cord injury Social History Smoking and tobacco status: never smoked Alcohol intake: former History of recent travel: No Physical Exam Const: COMMON NORMALS: no acute distress, average body habitus and patient oriented x3 HENMT: COMMON NORMALS: normocephalic, hearing grossly normal bilaterally and moist oral mucous membranes HEAD & SCALP: normocephalic Resp: COMMON NORMALS: normal respiratory effort, No use of accessory muscles and clear to auscultation bilaterally AUSCULTATION: clear to auscultation bilaterally Cardio: COMMON NORMALS: regular rate and regular rhythm RATE: regular rate RHYTHM: regular rhythm GI: COMMON NORMALS: Soft to palpation and non-tender PALPATION: Yes Soft to palpation Extremity: COMMON NORMALS: capillary refill normal Neuro: COMMON NORMALS: patient oriented x3, CN's II-XII intact bilaterally, moves all extremities and no sensory deficits noted Psych: COMMON NORMALS: mental status grossly normal, denies homicidal ideation and denies suicidal ideation Course Vital Signs: Vital signs: Vital Signs Temperature 98.4 F 03/18/22 17:30 Pulse Rate 67 03/18/22 22:01 Respiratory Rate 16 03/18/22 22:01 Blood Pressure 141/80 03/18/22 22:01 Pulse Oximetry 93 03/18/22 22:01 Oxygen Delivery Me thod 03/18/22 19:59 MDM - Headache Medical Decision Making Patient with elevated white count. When discussing with this with him he says it that is chronic and that he has had it evaluated with her oncologist and they cannot tell him why. Patient's chest x-ray shows no acute findings. Patient's head neck CTA shows no acute vascular abnormality, there is a hypoplastic right vertebral artery. Discussed findings with patient he reports that that is crazy because he had a blockage on the left side. Once again I explained to him that there is no findings consistent with that. Patient blood pressures do not show any significant concerning highs or lows but normal fluctuations. Discussed with him that this is also normal. Patient will be treated for his headache since he reports has been going on for couple days. Patient stable and discharged home. He should follow-up with his primary care provider as needed for further outpatient evaluation Lab Data : 03/18/22 19:18 03/18/22 19:18 Radiology Impressions Chest X-Ray 03/18/22 18:12 IMPRESSION: No acute findings. Head/Neck CTA 03/18/22 19:13 IMPRESSION: No acute intracranial vascular abnormality. Hypoplastic right vertebral artery. IMPRESSION: No acute vascular abnormality. Extremely hypoplastic right vertebral artery. REFERENCES: NASCET CRITERIA. The degree of stenosis in the cervical segment of the internal carotid artery is based on NASCET criteria. Normal is no stenosis. Mild is less than 50% stenosis. Moderate is 50-69% stenosis. Severe is 70% to 99% stenosis. Total occlusion is no detectable patent lumen. Laboratory Results WBC 23.6 10^3/uL (4.0-10.0) H 03/18/22 19:18 RBC 4.88 10^6/uL (4.1-5.3) 03/18/22 19:18 Hgb 15.3 g/dL (11.7-16.6) 03/18/22 19:18 Hct 46.3 % (42.0-52.0) 03/18/22 19:18 MCV 94.9 fl (80-94) H 03/18/22 19:18 MCH 31.4 pg (28.0-34.0) 03/18/22 19:18 MCHC 33.0 g/dL (30.0-36.0) 03/18/22 19:18 RDW 13.4 % (12.1-15.1) 03/18/22 19:18 Plt Count 292 10^3/cmm (130-400) 03/18/22 19:18 MPV 10.9 fL (7.4-10.4) H 03/18/22 19:18 Neut % (Auto) 71.4 % 03/18/22 19:18 Lymph % (Auto) 19.1 % 03/18/22 19:18 Mcintosh % (Auto) 6.9 % 03/18/22 19:18 Eos % (Auto) 1.4 % 03/18/22 19:18 Baso % (Auto) 0.6 % 03/18/22 19:18 Neut # (Auto) 16.82 10^3/uL (1.8-7.7) H 03/18/22 19:18 Lymph # (Auto) 4.5 10^3/uL (0.8-4.8) 03/18/22 19:18 Mcintosh # (Auto) 1.6 10^3/uL (0.2-0.9) H 03/18/22 19:18 Eos # (Auto) 0.3 10^3/uL (0.0-0.8) 03/18/22 19:18 Baso # (Auto) 0.1 10^3/uL (0.0-0.1) 03/18/22 19:18 Nucleated RBC % (auto) 0 % 03/18/22 19:18 Nucleated RBCs # 0.0 /100WBC 03/18/22 19:18 Sodium 136 mmol/L (136-145) 03/18/22 19:18 Potassium 4.0 mmol/L (3.5-5.1) 03/18/22 19:18 Chloride 98 mmol/L (98-107) 03/18/22 19:18 Carbon Dioxide 29 mmol/L (22-29) 03/18/22 19:18 Anion Gap 13.0 (5-19) 03/18/22 19:18 BUN 10 mg/dL (6-20) 03/18/22 19:18 Creatinine 0.7 mg/dL (0.7-1.2) 03/18/22 19:18 GFR Calculation 115.4 mL/min (90-130) 03/18/22 19:18 Glucose 86 mg/dL (65-115) 03/18/22 19:18 Calculated Osmolality 280 mOsm/kg (285-295) L 03/18/22 19:18 Calcium 9.3 mg/dL (8.5-10.5) 03/18/22 19:18 Magnesium 1.9 mg/dL (1.7-2.3) 03/18/22 19:18 Total Bilirubin 0.4 mg/dL (0.15-1.2) 03/18/22 19:18 AST 13 U/L (0-40) 03/18/22 19:18 ALT 10 U/L (0-41) 03/18/22 19:18 Alkaline Phosphatase 95 U/L (40-130) 03/18/22 19:18 Troponin T Gen 5 ng/L 21 ng/L (0-15) H 03/18/22 19:18 Total Protein 7.4 g/dL (6.6-8.7) 03/18/22 19:18 Albumin 4.0 g/dL (3.5-5.2) 03/18/22 19:18 Globulin 3.4 g/dL (1.3-4.6) 03/18/22 19:18 EKG Data EKG 1: I personally reviewed and interpreted this EKG as follows: EKG interpretation date: 03/18/22 EKG interpretation time: 18:15 Interpretation: Heart rate 70, WI interval 163, QTc 412, no acute changes, sinus rhythm Discharge Plan Discharge Patient Disposition: Home Clinical Impression: Headache, Elevated white blood cell count, unspecified, Blood pressure instability Condition: Stable Prescriptions: No Action citalopram 10 mg tablet 10 mg PO DAILY Qty: 90 1RF pantoprazole 40 mg tablet,delayed release (DR/EC) 40 mg PO DAILY Qty: 90 1RF verapamil 180 mg tablet extended release 180 mg PO DAILY Qty: 90 1RF gabapentin 300 mg capsule 900 mg PO TID Qty: 270 3RF atorvastatin 40 mg tablet 40 mg PO QPM oxycodone 15 mg tablet 15 mg PO QID baclofen 20 mg tablet 20 mg PO TID tamsulosin 0.4 mg capsule 0.4 mg PO QPM lisinopril 10 mg tablet 10 mg PO QPM albuterol sulfate 2.5 mg /3 mL (0.083 %) Solution For Nebulization 2.5 mg INHALATION Q4H PRN (Reason: Shortness Of Breath Or Wheezing) albuterol sulfate 90 mcg/actuation Hfa Aerosol Inhaler 2 puff INHALATION QID PRN (Reason: Shortness Of Breath Or Wheezing) Discharge Orders: Discharge ED (Routine); Ordered 03/18/22 Ordered By: Demario Hilliard Referrals: Rajesh Gardner DO [Primary Care Provider] - Discharge Diet: Usual diet Discharge Activity: Resume usual activity Patient Instructions: How to Take Your Blood Pressure, Headache, Leukocytosis (ED), Opioid Safety, Pain Management Activity Restrictions/Additional Instructions: Please follow-up with your primary care provider for further outpatient evaluation and recheck of your symptoms and blood pressure management Coding Level of Care Code ED Md Pediatric Allergist for Chg Fwd Exam Comprehensive
[2022-03-18] MEDS: iohexol 350 mg/mL 100 mL Btl IV (20:34)
[2022-03-18] MEDS: ketorolac 30 mg/mL INJ 15 MG IVP (21:51)
[2022-03-18] MEDS: metoclopramide 5 mg/mL SDV 2 mL IVP (21:51)
== END 2022-03-18 22:03 | disposition home or self-care (01) ==
PROVIDERS: Family Medicine; Emergency Provider Student in an Organized Health Care Education/Training Program; PCP Family Medicine
DX: I10 Essential (primary) hypertension (principal); R51.9 Headache, unspecified
CPT/HCPCS: 70496; 70498; 71045; 80053; 83735; 84484; 85025; 93005; 96374; 96375; 99285; J1200; J1885; J2765; J2930; Q9967

== ENCOUNTER → 2022-05-15 09:09 | Outpatient (BNVA) | payer MEDICARE, SELFPAY | PROVIDERS: PCP Family Medicine; Visit Provider Family Medicine | DX: K76.0 Fatty (change of) liver, not elsewhere classified (principal); D72.829 Elevated white blood cell count, unspecified; R51.9 Headache, unspecified | CPT/HCPCS: 80053; 80061; 80503; 85025 ==

== ENCOUNTER → 2022-06-05 12:31 | Outpatient (BNVA) | payer MEDICARE, SELFPAY | PROVIDERS: PCP Family Medicine; Visit Provider Internal Medicine Cardiovascular Disease | DX: I25.10 Atherosclerotic heart disease of native coronary artery without angina pectoris (principal); E78.2 Mixed hyperlipidemia; I71.40 Abdominal aortic aneurysm, without rupture, unspecified; G40.309 Generalized idiopathic epilepsy and epileptic syndromes, not intractable, without status epilepticus; K76.0 Fatty (change of) liver, not elsewhere classified; F17.210 Nicotine dependence, cigarettes, uncomplicated | CPT/HCPCS: 99204 ==

== ENCOUNTER 2022-08-21 12:45 | Outpatient (CLI) | payer MEDICARE, SELFPAY ==
--- NOTE | 2022-08-21 13:00 | USCV_ITS ---
Ang Yadav Age: 62 Gender: M : 1960 Exam Date: 08/21/2022 13:52 Ordering Phys: Judith Blanc MD ([email or web address]) Technologist: RANDEE Exam Location: [facility] [place] Indication: CAD BP: 102 / 58 HR: 63 Rhythm: Sinus Technical Quality: Adequate MEASUREMENTS (Male / Female) Normal Values 2D ECHO LVOT Diameter 2.0 cm LV Ejection Fraction MOD 2C 72.0 % LV Ejection Fraction 2C AL 73.4 % LA Diameter 2.7 cm LA Width 2.6 cm LA Height 3.6 cm RA Width 2.9 cm RA Height 4.1 cm Aorta at Sinotubular Diameter 2.4 cm IVC Diameter 1.6 cm M-MODE Aortic Annulus Diameter 2.9 cm LA Ao Ratio MM 0.9 MV E Point Septal Separation 0.4 cm DOPPLER AV Peak Velocity 186.5 cm/s LVOT Peak Velocity 150.0 cm/s AV Area Cont Eq vti 2.5 cm squared AV Area Cont Eq pk 2.6 cm squared MV Peak Velocity 80.0 cm/s MV Area PHT 4.2 cm squared Mitral E to A Ratio 1.5 MV E' Velocity 54.5 cm/s Mitral E to MV E' Ratio 6.9 Mitral E to LV E' Lateral Ratio 6.1 Mitral E to LV E' Septal Ratio 8.1 TR Peak Velocity 167.6 cm/s TR Peak Gradient 11.2 mmHg TR Mean Velocity 156.7 cm/s TR Mean Gradient 10.1 mmHg TR Velocity Time Integral 53.5 cm TV Peak E Velocity 56.0 cm/s Right Atrial Pressure 3.0 mmHg Pulmonary Artery Systolic Pressu 14.2 mmHg PV Peak Velocity 125.0 cm/s RV Acceleration Time 0.1 s RV Ejection Time 0.3 s RV AcT/ET 0.4 FINDINGS Left Ventricle Normal left ventricular size, systolic function and wall thickness, with no regional wall motion abnormalities. Left ventricular ejection fraction is estimated at 60 %. Grade II/IV diastolic dysfunction, moderately elevated filling pressures. Right Ventricle The right ventricle is normal in size and function. Right Atrium The right atrium is normal in size. Left Atrium The left atrium is normal in size. Mitral Valve Structurally normal mitral valve without significant stenosis or prolapse. Trace mitral regurgitation. Aortic Valve Structurally normal aortic valve without significant sclerosis or stenosis. There is mild aortic regurgitation. Tricuspid Valve Structurally normal tricuspid valve without significant stenosis and trace regurgitation. Pulmonary artery systolic pressure is normal. Pulmonic Valve Structurally normal pulmonic valve without significant stenosis. There is no pulmonic regurgitation. Pericardium Normal pericardium without effusion. Aorta Normal ascending aorta dimension. IVC The inferior vena cava appears normal. CONCLUSIONS 1-Normal left ventricular size, systolic function and wall thickness, with no regional wall motion abnormalities. Left ventricular ejection fraction is estimated at 60 %. Grade II/IV diastolic dysfunction, moderately elevated filling pressures. 2-Structurally normal mitral valve without significant stenosis or prolapse. Trace mitral regurgitation. 3-There is no pericardial effusion. 4-Right atrial pressure is around 5 mm of mercury. Palomo Burt MD (Electronically Signed) Final Date: 21 August 2022 16:57 S
--- NOTE | 2022-08-21 13:08 | CT_ITS ---
WS: [id number] CT ANGIOGRAPHY OF THE ABDOMINAL AORTA WITH RUNOFF TO THE ANKLES, with and without IV contrast HISTORY: AAA TECHNIQUE: Noncontrast first performed through the abdomen and pelvis to evaluate the endovascular gr aft. Arterial injection is performed during imaging to evaluate the aorta and runoff vessels to the a nkles. MIP and volume rendering imaging has also been performed. All images are reviewed. All CT scan s at [facility] use at least one of these dose optimization techniques: automated exposure con trol; mA and/or kV adjustment per patient size (includes targeted exams where dose is matched to clin ical indication); or iterative reconstruction. Contrast: Omnipaque 350; 100 mL IV. DLP: 1490.58 mGy.cm COMPARISON: None available. Lung bases are clear. Normal size heart. Small hiatal hernia. Abdominal aorta: Status post endovascular graft repair with bilateral iliac artery extensions. Graft begins just above the renal arteries. Large aortic diameter is 4.2 cm. No periaortic fluid collection s. Graft lumen is normally enhanced with no significant plaque identified. Good contrast opacificatio n in the iliac portions of the graft. Very minimal stenosis at the outflow of the LEFT iliac graft. N o endoleak is identified. Good enhancement of the celiac axis. Normal enhancement of the SMA. SALVADOR is not identified or robustly enhancing. RIGHT lower extremity arterial system: Mild stenosis origin RIGHT internal iliac artery. Scattered pl aque in thrombus in the external iliac artery to the femoral artery. 50% stenosis involving the femor al artery proximal to the bifurcation. SFA and deep profunda are intact. Scattered plaque slightly pr ogressed as to Herman's canal. There is interval thickening and plaque in the popliteal artery. Steno sis near 50% but no occlusion. Anterior tibial artery is intact. Small amount of calcified plaque in the peroneal and posterior tibial arteries. At the ankles the runoff becomes limited especially withi n the anterior tibial and the peroneal arteries. LEFT lower extremity arterial system: Moderate calcified plaque distal to the iliac graft. Internal a nd external iliac arteries are patent without high-grade stenosis. 40% stenosis distal femoral artery just prior to the bifurcation. SFA and deep profunda are intact. Mild atherosclerotic plaque through out the SFA with increasing plaque near the distal SFA in Herman's canal. Stenosis 50% to Herman's ca nal popliteal artery without significant stenosis. Focal calcified plaque at the tibioperoneal bifurc ation. Adequate enhancement in the anterior, posterior and peroneal arteries. Distally at the ankles the opacification is limited but this is probably due to the injection. Similar to the LEFT ankle. Liver, spleen, pancreas and gallbladder are unremarkable. RIGHT adrenal adenoma is 1.6 cm. No LEFT ad renal adenoma. Mild atrophy RIGHT kidney. There is still enhancement and excretion. Normal size LEFT kidney. No obstruction. No GI tract obstruction. No ascites or adenopathy. Mild prostate enlargement. 20% compression fracture T11 and T12. CT/CT angio abd aorta runof [id number] IMPRESSION: 1. Status post endovascular graft repair abdominal aorta with bilateral iliac artery extensions. No endovascular leak. 2. Mild outflow stenosis LEFT iliac artery graft. Less than 50%. 3. SALVADOR not identified, may be occluded. 4. Mild stenosis origin of the RIGHT internal iliac artery. 5. RIGHT femoral artery 50% stenosis. 6. LEFT femoral artery 40% stenosis. 7. LEFT SFA stenosis in Herman's canal 50%. 8. Atherosclerotic plaque is scattered bilaterally below the knees with limite d runoff to the ankles probably due to the phase of contrast injection. Most si gnificant Limited opacification is in the peroneal arteries near the ankles. 9. Mild atrophy RIGHT kidney. There is still excretion and enhancement of the kidney. 10. RIGHT adrenal adenoma. 11. Chronic 20% compression fractures T11 and T12.
[2022-08-21 13:47] LABS: Blood Urea Nitrogen 13 mg/dL (8-23); Glomerular Filtration Rate 98.6 mL/min (90-130)
[2022-08-21] MEDS: iohexol 350 mg/mL 500 mL Btl (per mL) IV (14:25)
== END 2022-08-21 12:46 | disposition home or self-care (01) ==
PROVIDERS: PCP Family Medicine; Visit Provider Internal Medicine Cardiovascular Disease
DX: I25.10 Atherosclerotic heart disease of native coronary artery without angina pectoris (principal); Z95.828 Presence of other vascular implants and grafts; I71.40 Abdominal aortic aneurysm, without rupture, unspecified
CPT/HCPCS: 75635; 82565; 84520; 93306; Q9967

== ENCOUNTER → 2022-10-22 13:47 | Outpatient (BNVA) | payer MEDICARE, SELFPAY | PROVIDERS: PCP Family Medicine; Visit Provider Family Medicine | DX: K59.03 Drug induced constipation (principal); T40.2X5A Adverse effect of other opioids, initial encounter; R53.83 Other fatigue; E78.2 Mixed hyperlipidemia; K76.0 Fatty (change of) liver, not elsewhere classified; Z12.5 Encounter for screening for malignant neoplasm of prostate | CPT/HCPCS: 80053; 80061; 84439; 84443; 85025; G0103 ==

== ENCOUNTER → 2022-12-04 13:48 | Outpatient (BNVA) | payer MEDICARE, SELFPAY | PROVIDERS: PCP Family Medicine; Visit Provider Internal Medicine Cardiovascular Disease | DX: I25.10 Atherosclerotic heart disease of native coronary artery without angina pectoris (principal); E78.2 Mixed hyperlipidemia; G40.309 Generalized idiopathic epilepsy and epileptic syndromes, not intractable, without status epilepticus; K76.0 Fatty (change of) liver, not elsewhere classified; I71.40 Abdominal aortic aneurysm, without rupture, unspecified; F17.210 Nicotine dependence, cigarettes, uncomplicated | CPT/HCPCS: 99214 ==

== ENCOUNTER → 2023-05-12 15:50 | Outpatient (BNVA) | payer MEDICARE, SELFPAY | PROVIDERS: PCP Family Medicine; Visit Provider Family Medicine | DX: I10 Essential (primary) hypertension (principal); G62.9 Polyneuropathy, unspecified; I25.10 Atherosclerotic heart disease of native coronary artery without angina pectoris; E78.2 Mixed hyperlipidemia | CPT/HCPCS: 80053; 80061; 85025 ==

== ENCOUNTER 2024-09-13 16:22 | Emergency (ER) | payer MEDICARE, SELFPAY ==
[2024-09-13 16:36] VITALS: BP 110/70; PULSE 75; RESP 18; TEMP 36.7; O2SAT 96
--- NOTE | 2024-09-13 18:55 | XRR_ITS ---
PROCEDURE INFORMATION: Exam: XR Lumbosacral Spine Exam date and time: 09/13/2024 7:15 PM Age: 64 years old Clinical indication: Low back pain; Prior surgery; Surgery date: 6+ months; Surgery type: Aaa; Additional info: Fall/right lower pain TECHNIQUE: Imaging protocol: Radiologic exam of the lumbosacral spine. Views: 2 or 3 views. COMPARISON: CT angio abd aorta runof [id number] 08/21/2022 2:10 PM FINDINGS: Tubes, catheters and devices: Prior endograft repair of the abdominal aorta and iliac arteries. Bones/joints: Severe compression deformity of the T12 and moderate compression deformity of T11, similar to the prior examination given differences in technique. Moderate degenerative disc disease at L4-L5 redemonstrated. Soft tissues: Unremarkable. XR/XR lumbar spine 2-3V* [id number] IMPRESSION: 1. Severe compression deformity of the T12 and moderate compression deformity of T11, similar to the prior examination given differences in technique. 2. Moderate degenerative disc disease at L4-L5 redemonstrated.
--- NOTE | 2024-09-13 18:55 | XRR_ITS ---
PROCEDURE INFORMATION: Exam: XR Right Hip Exam date and time: 09/13/2024 7:20 PM Age: 64 years old Clinical indication: Hip pain; Right hip; Additional info: Fall/right hip pain TECHNIQUE: Imaging protocol: Radiologic exam of the right hip. Views: 1 view hip with pelvis when performed. COMPARISON: CR (PELVIS, ) 09/13/2024 7:15 PM FINDINGS: Bones/joints: Unremarkable. No acute fracture. Soft tissues: Unremarkable. XR/XR hip RT 2-3V wo/w pel* [id number] IMPRESSION: No acute findings.
[2024-09-13] MEDS: dexamethasone 10 mg/mL INJ IM (19:02)
[2024-09-13] MEDS: ketorolac 60 mg/2 mL INJ IM (19:02)
[2024-09-13 19:29] VITALS: PULSE 56; O2SAT 95
--- NOTE | 2024-09-13 19:38 | W.ED.BACK ---
HPI - Back Pain/Injury General: Chief Complaint: Back Pain/Injury Stated Complaint: hip and back pain Time Seen by Provider: 09/13/24 18:10 Source: patient Mode of arrival: wheelchair Limitations: no limitations History of Present Illness: Patient is a 64-year-old male who presents emergency department planing of right lower back pain over the past couple days. He notes that he uses a walker and has had increasing falls recently, 1 such fall being while walking downstairs and states that his right lower back has been in excruciating pain. Notes the pain radiates down the right anterior leg, he is concerned of a dislocation to his hip though he does not report a history of this. He chronically is on oxycodone, states this has not been helping. He denies any bowel or bladder incontinence, saddle anesthesia, or any other concerning red flag back symptoms. Vitals unremarkable at this time. MD elicited complaint: back pain Pertinent past history: prior back pain and recent trauma Onset (ago): day(s) Timing: constant Severity: severe Similar Symptoms Previously: Yes Location: right lower back Radiation: right upper leg Exacerbating factors: walking Relieving factors: none Context: fall Associated symptoms: Deny abdominal pain, difficulty walking, fecal incontinence, fever(s) or syncope Related Data Home Medications ?Medication ?Instructions ?Recorded ?Confirmed oxycodone 15 mg tablet 15 mg PO QID 03/18/22 08/14/23 Previous Rx's ?Medication ?Instructions ?Recorded sennosides 8.6 mg-docusate sodium 1 tab-cap PO BID #60 tabs 10/22/22 50 mg tablet (Senna with Docusate Sodium) pantoprazole 40 mg tablet,delayed See Rx Instructions .Route 05/07/23 release .COMPLEX #90 tabs tamsulosin 0.4 mg capsule See Rx Instructions .Route 05/07/23 .COMPLEX #90 caps verapamil 180 mg tablet,extended See Rx Instructions .Route 05/07/23 release .COMPLEX #90 tabs atorvastatin 20 mg tablet 20 mg PO DAILY #90 tabs 05/12/23 gabapentin 300 mg capsule 900 mg (3 x 300 mg) PO TID #270 05/12/23 caps lisinopril 10 mg tablet 10 mg PO DAILY #90 tabs 05/12/23 albuterol sulfate 90 mcg/actuation See Rx Instructions .Route 06/11/23 aerosol inhaler .COMPLEX #8.5 grams citalopram 20 mg tablet 20 mg PO DAILY 90 days #90 tabs 08/14/23 ezetimibe 10 mg tablet 10 mg PO DAILY #90 tabs 02/26/24 prednisone 20 mg tablet 60 mg (3 x 20 mg) PO ONCE 5 days 09/13/24 #15 tabs Allergies Allergy/AdvReac Type Severity Reaction Status Date / Time Iodinated Contrast Media Allergy Unknown Verified 09/13/24 16:41 Review of Systems General: Reports: 10 or more systems reviewed and unremarkable except in HPI and below Const: Reports: other (denies trauma); Denies: fever(s), change in weight or night sweats Card: Denies: chest pain, lightheadedness or syncope Resp: Denies: dyspnea GI: Denies: abdominal pain or fecal incontinence : Denies: urinary incontinence Musc: Reports: back pain and extremity pain (Right lower); Denies: neck pain Skin/Breast: Denies: rash or skin pain Neuro: Denies: headache(s), numbness in extremities, weakness in extremities, sensory changes, lack of coordination, difficulty walking, frequent falls or involuntary movements [facility] ED PFSH: Medical History Spinal cord injury Social History Smoking and tobacco/nicotine status: current every day tobacco/nicotine user cigarettes Alcohol intake: former Substance/Drug Use: current Substance/Drug use frequency: daily Physical Exam Const: COMMON NORMALS: patient oriented x3, no limitations, healthy appearing and alert GENERAL APPEARANCE: anxious Resp: COMMON NORMALS: normal respiratory effort, No retractions, No use of accessory muscles and clear to auscultation bilaterally AUSCULTATION: clear to auscultation bilaterally Cardio: COMMON NORMALS: regular rate, regular rhythm, S1 normal heart sound present and S2 normal heart sound present RATE: regular rate RHYTHM: regular rhythm HEART SOUNDS: S1 normal heart sound present and S2 normal heart sound present Back/Pelvis: OTHER: Normal visual examination. No spinous process tenderness. Tenderness to palpation to right paralumbar region with no acute signs of trauma. Straight leg raise positive on the right. Extremity: COMMON NORMALS: normal to inspection and full ROM Neuro: COMMON NORMALS: patient oriented x3, moves all extremities, no focal motor deficits, no sensory deficits noted, deep tendon reflexes 2+ bilaterally and gait normal SENSORIUM/ORIENTATION: Yes alert OTHER: L3, L4, L5, and S1 nerve sensations intact. Normal knee jerk and ankle jerk reflexes. Skin: COMMON NORMALS: no rashes or lesions noted GENERAL SKIN EXAM: no rashes or lesions noted Course Vital Signs: Vital signs: Vital Signs Temperature 98.1 F 09/13/24 16:36 Pulse Rate 65 09/13/24 20:50 Respiratory Rate 18 09/13/24 16:36 Blood Pressure 113/82 09/13/24 20:50 Pulse Oximetry 95 09/13/24 20:50 Oxygen Delivery Me thod Room Air 09/13/24 16:36 MDM - Back Pain/Injury Medical Decision Making Patient presenting with right lower back pain, has had multiple falls recently, uses a walker. No red flag back symptoms with history or exam, easily reproducible tenderness to right lower back and evidence of sciatica as it was radiating down his right anterior leg. He does have a history of sciatica. X-ray of hip and pelvis was negative. X-ray lumbar spine showing chronic findings of compression deformity. States he has never had back surgery and has never seen Ortho/spine. He notes improvement after receiving Decadron and Toradol here, he takes oxycodone at home for pain. Encouraged him to continue oxycodone and will take prednisone, however will refer him to Ortho/spine for further evaluation. He agrees with this plan, in the meantime told to return with any red flag symptoms. Labs Radiology Impressions Hip/Pelvis X-Ray 09/13/24 18:55 IMPRESSION: No acute findings. Lumbar Spine X-Ray 09/13/24 18:55 IMPRESSION: 1. Severe compression deformity of the T12 and moderate compression deformity of T11, similar to the prior examination given differences in technique. 2. Moderate degenerative disc disease at L4-L5 redemonstrated. All radiology interpretation(s) finalized by discharge Discharge Plan Discharge Patient Disposition: Home Clinical Impression: Chronic lumbar pain Qualifiers: Back pain laterality: bilateral Sciatica presence: with sciatica Sciatica laterality: bilateral sciatica Qualified Code(s): M54.42 - Lumbago with sciatica, left side Strain of lumbar region Qualifiers: Encounter type: initial encounter Qualified Code(s): S39.012A - Strain of muscle, fascia and tendon of lower back, initial encounter Condition: Stable Prescriptions: New prednisone 20 mg tablet 60 mg PO ONCE 5 Days Qty: 15 0RF No Action lisinopril 10 mg tablet 10 mg PO DAILY Qty: 90 3RF gabapentin 300 mg capsule 900 mg PO TID Qty: 270 3RF atorvastatin 20 mg tablet 20 mg PO DAILY Qty: 90 3RF sennosides-docusate sodium [Senna with Docusate Sodium] 8.6-50 mg tablet 1 tab-cap PO BID Qty: 60 5RF citalopram 20 mg tablet 20 mg PO DAILY 90 Days Qty: 90 3RF tamsulosin 0.4 mg capsule See Rx Instructions .ROUTE .COMPLEX Qty: 90 3RF Dose Instruction: TAKE 1 CAPSULE BY MOUTH DAILY Rx Instructions: TAKE 1 CAPSULE BY MOUTH DAILY pantoprazole 40 mg tablet,delayed release (DR/EC) See Rx Instructions .ROUTE .COMPLEX Qty: 90 3RF Dose Instruction: TAKE 1 TABLET BY MOUTH DAILY Rx Instructions: TAKE 1 TABLET BY MOUTH DAILY verapamil 180 mg tablet extended release See Rx Instructions .ROUTE .COMPLEX Qty: 90 3RF Dose Instruction: TAKE 1 TABLET BY MOUTH DAILY Rx Instructions: TAKE 1 TABLET BY MOUTH DAILY albuterol sulfate 90 mcg/actuation HFA aerosol inhaler See Rx Instructions .ROUTE .COMPLEX Qty: 8.5 0RF Dose Instruction: USE 2 INHALATIONS BY MOUTH 4 TIMES DAILY NEEDED FOR SHORTNESS OF BREATH OR WHEEZING Rx Instructions: USE 2 INHALATIONS BY MOUTH 4 TIMES DAILY NEEDED FOR SHORTNESS OF BREATH OR WHEEZING ezetimibe 10 mg tablet 10 mg PO DAILY Qty: 90 3RF oxycodone 15 mg tablet 15 mg PO QID Discharge Orders: Discharge ED (Routine); Ordered 09/13/24 Ordered By: Miguel Gamble Referrals: Rajesh Gardner DO [Primary Care Provider] - Patient Instructions: Opioid Safety, Pain Management Activity Restrictions/Additional Instructions: Follow-up with orthopedics/spine as we discussed. Take prednisone and continue taking your home pain medications. Range of motion exercises as tolerated, ice/heat. Follow-up with primary care routinely. Return with any loss of bowel or bladder function, numbness in the groin region, or any other concerns that you have. Print Language: Burmese Coding Level of Care Code ED Video Game Engineer for Sixto Rivera
[2024-09-13 20:50] VITALS: BP 113/82; PULSE 65; O2SAT 95
--- NOTE | 2024-09-14 07:11 | DCPLANNER ---
messaged ortho for er f/u
== END 2024-09-13 20:45 | disposition home or self-care (01) ==
PROVIDERS: Emergency Provider Physician Assistant; PCP Family Medicine
DX: M54.42 Lumbago with sciatica, left side (principal); S39.012A Strain of muscle, fascia and tendon of lower back, initial encounter; F17.210 Nicotine dependence, cigarettes, uncomplicated; W10.9XXA Fall (on) (from) unspecified stairs and steps, initial encounter
CPT/HCPCS: 72100; 73502; 96372; 99284; J1100; J1885

== ENCOUNTER → 2024-09-17 15:12 | Outpatient (BNVA) | payer MEDICARE, SELFPAY | PROVIDERS: PCP Family Medicine; Visit Provider Family Medicine | DX: I10 Essential (primary) hypertension (principal) | CPT/HCPCS: 80053; 80061; 84439; 84443; 85025 ==

== ENCOUNTER 2024-09-20 14:24 | Outpatient (CLI) | payer MEDICARE, SELFPAY ==
--- NOTE | 2024-09-20 14:30 | MR_ITS ---
WS: [id number] MRI LUMBAR SPINE NONCONTRAST TECHNIQUE: Sagittal T1, T2 and STIR imaging. Axial T1 and T2 imaging. CLINICAL INFORMATION: compressoin fracture COMPARISON: Radiograph 09/13/2024 FINDINGS: Mild lumbar curve. Chronic anterior wedging with Schmorl's nodes in the lower lumbar spine at T11 and T12. L1-L2: Mild annular bulging. Mild facet arthropathy. Spinal canal and foramen are patent. L2-L3: Mild annular bulging. Narrowing of the subarticular recess bilaterally LEFT greater than RIGHT. Mild facet arthropathy. Foramina are patent. L3-L4: Slight retrolisthesis. Mild disc bulge with narrowing of the subarticular recess bilaterally. Mild facet arthropathy. Foramina are patent. L4-L5: LEFT paracentral protrusion impinges the LEFT subarticular recess and traversing LEFT L5 nerve root. LEFT foraminal protrusion with mild LEFT foraminal narrowing. Moderate facet arthropathy. L5-S1: Mild disc bulging impinges the LEFT S1 nerve root. Moderate facet arthropathy. Mild bilateral foraminal narrowing. Visualized pelvic bony structures: Normal. Paravertebral soft tissues: Normal. Atrophic RIGHT kidney. Partially visualized aortic endograft. MR/MR lumbar spine wo con* 10000 IMPRESSION: 1. Chronic compression with anterior wedging at T11 and T12. 2. No acute compression fractures. 3. Shallow LEFT paracentral protrusion L4-5 impinges the traversing LEFT L5 ne rve root in the subarticular recess. Mild LEFT L4-5 foraminal narrowing with a LEFT foraminal protrusion. 4. Disc bulge L5-S1 slightly impinges the LEFT S1 nerve root. 5. Narrowing bilateral subarticular recess L2-L3 and L3-4.
== END 2024-09-20 14:25 | disposition home or self-care (01) ==
PROVIDERS: PCP Family Medicine; Visit Provider Family Medicine
DX: M48.54XD Collapsed vertebra, not elsewhere classified, thoracic region, subsequent encounter for fracture with routine healing (principal); M54.42 Lumbago with sciatica, left side; M54.41 Lumbago with sciatica, right side; G89.29 Other chronic pain; M51.26 Other intervertebral disc displacement, lumbar region; M51.379 Other intervertebral disc degeneration, lumbosacral region without mention of lumbar back pain or lower extremity pain; M43.8X6 Other specified deforming dorsopathies, lumbar region; M47.896 Other spondylosis, lumbar region; M51.369 Other intervertebral disc degeneration, lumbar region without mention of lumbar back pain or lower extremity pain; M47.897 Other spondylosis, lumbosacral region; N26.1 Atrophy of kidney (terminal); Z96.89 Presence of other specified functional implants
CPT/HCPCS: 72148

== ENCOUNTER → 2024-09-21 12:57 | Outpatient (BNVA) | payer MEDICARE, SELFPAY | PROVIDERS: PCP Family Medicine; Visit Provider Orthopaedic Surgery | DX: M54.6 Pain in thoracic spine (principal); M54.41 Lumbago with sciatica, right side; M54.42 Lumbago with sciatica, left side; G89.29 Other chronic pain | CPT/HCPCS: 72072; 72100; 99203 ==

== ENCOUNTER → 2024-10-15 11:27 | Outpatient (BNVA) | payer MEDICARE, SELFPAY | PROVIDERS: PCP Family Medicine; Visit Provider Internal Medicine Cardiovascular Disease | DX: R07.9 Chest pain, unspecified (principal); R06.02 Shortness of breath; F17.210 Nicotine dependence, cigarettes, uncomplicated | CPT/HCPCS: 99214 ==

== ENCOUNTER → 2024-10-26 15:41 | Outpatient (BNVA) | payer MEDICARE, SELFPAY | PROVIDERS: PCP Family Medicine; Visit Provider Orthopaedic Surgery | DX: M54.41 Lumbago with sciatica, right side (principal); M54.42 Lumbago with sciatica, left side; G89.29 Other chronic pain | CPT/HCPCS: 72100; 99213 ==

== ENCOUNTER 2024-12-08 16:39 | Emergency (ER) | payer MEDICARE, SELFPAY ==
[2024-12-08 16:43] VITALS: BP 128/72; PULSE 82; RESP 18; TEMP 37.3; O2SAT 95; BMI 18.4
--- OUTSIDE RECORDS SUMMARY | 2024-12-08 16:51 | XMS_ITS | Encounter Summary ---
Author Organization [facility] Address [address] [place] [address] Care Team Providers Care Wiring Technician Name Role Phone Rajesh Soria MD Primary Care Provider [phone] Encounter Details Date Type Department Care Team (Late st Contact Info) Description 12/07/2024 External Device Data [facility] Provider, Abstract NO ADDRESS ON FILE Social History Tobacco Use Types Packs/Day Years Used Date Smoking Tobacco: Every Day Cigarettes Smokeless Tobacco: Never Alcohol Use Standard Drinks/Week Comments Never 0 (1 standard drink = 0.6 oz pur e alcohol) Feeling Safe Answer Date Recorded Are you in a relationship wi th someone who hurts you emotionally and/or physically? 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 Legal Sex Male 10:06 AM CDT Gender Identity Male 05/18/2024 5:16 PM FOOD SERVICE CASHIER Sexual Orientation Straight 05/18/2024 5: 16 PM FOOD SERVICE CASHIER documented as of this encounter Plan of Treatment Not on file documented as of this encounter Visit Diagnoses Not on filedocumented in this encounter Additional Health Concerns Assessment Noted Time PHQ-9 Depression Total Score: 4 05/25/20 11:05 AM FOOD SERVICE CASHIER documented as of this encounter Care Teams Wiring Technician Relationship Specialty Start Date End Date Rajesh Soria MD [address] [facility] [address] [place] [id number] PCP - General Family Practice 02/23/24 documented as of this encounter
--- OUTSIDE RECORDS SUMMARY | 2024-12-08 16:51 | XMS_ITS | Clinical Summary ---
Author Organization [facility] Address [address] [place] [address] Phone Care Team Providers Care Telephoner Name Role Phone Rajesh Soria MD Primary Care Provider [phone] Allergies Active Allergy Reactions Criticality Noted Date Comments Iodinated Contrast Media Rash Low 02/23/2024 Penicillins Hives High 07/02/2024 Medications diphenhydrAMINE (BENADRYL) 50 mg capsule 1 capsule 1 hour prior to appointment time Orally Once for 1 day Active gabapentin (NEURONTIN) 600 mg tablet Take 900 mg by mouth 3 times daily. Active oxyCODONE (ROXICODONE) 15 mg tablet TAKE 1 TABLET BY MOUTH EVERY 6 HOURS NEEDED MAX OF FOUR PER DAY Active atorvastatin (LIPITOR) 20 mg tabletIndications: Mixed hyperlipidemia Take 1 Tablet (20 mg) by mouth daily at bedtime. 100 Tablet 3 02/25/20 24 Active baclofen (LIORESAL) 20 mg tabletIndications: Chronic pain syndrome Take 1 Tablet (20 mg) by mouth 3 times daily. 90 Tablet 2 02/25/20 24 Active Additional Information Patient not taking.Reported on 07/02/2024 citalopram (CeleXA) 20 mg tabletIndications: Moderate episode of recurrent major depressive disorder (CMS/HCC) Take 1 Tablet (20 mg) by mouth daily. 90 Tablet 3 02/25/20 24 Active ezetimibe (ZETIA) 10 mg tabletIndications: Mixed hyperlipidemia Take 1 Tablet (10 mg) by mouth daily. 100 Tablet 3 02/25/20 24 Active pantoprazole (PROTONIX) 40 mg Tablet, Delayed Release (E.C.)Indications: Gastroesophageal reflux disease without esophagitis Take 1 Tablet (40 mg) by mouth daily. 90 Tablet 3 02/25/20 24 Active tamsulosin (FLOMAX) 0.4 mg capsuleIndications :Benign prostatic hyperplasia with urinary hesitancy Take 1 Capsule (0.4 mg) by mouth daily. 90 Capsule 3 02/25/20 24 Active verapamiL (CALAN SR) 180 mg Sustained Release tabletIndications: Benign hypertension Take 1 Tablet (180 mg) by mouth daily. 100 Tablet 3 02/25/20 24 Active amitriptyline (ELAVIL) 50 mg tablet Take 1 tablet every day by oral route. Active aspirin (ECOTRIN EC) 325 mg Tablet, Delayed Release (E.C.) Take 1 tablet every day by oral route. Active cholecalciferol 1,250 mcg (50,000 unit) Capsule Take 1 capsule every week by oral route as directed. Active cyclobenzaprine (FLEXERIL) 5 mg Tablet Take 1 tablet 3 times a day by oral route as needed. Active docusate sodium (Colace) 100 mg capsule Take 1 capsule every day by oral route. Active escitalopram oxalate (Lexapro) 10 mg tablet Take 1 tablet every day by oral route. Active varenicline (CHANTIX) 0.5 mg Tablet Take 1 tablet twice a day by oral route as directed for 3 days. Active lisinopriL (PRINIVIL) 20 mg tablet Take 1 tablet every day by oral route. Active predniSONE (DELTASONE) 50 mg tablet Take 1 Tablet (50 mg) by mouth see administration instructions. Take 1 tablet 13, 7 and 1 hour before contrast administration 3 Tablet 05/25/20 Active tiZANidine (ZANAFLEX) 4 mg Tablet Take 4 mg by mouth 3 times daily. 05/26/20 24 Active Active Problems Problem Noted Date Diagnosed Date Femoral artery stenosis, right 06/21/2024 NAFLD (nonalcoholic fatty liver disease) 024 Mixed dyslipidemia 05/25/2024 History of colonic polyps 05/25/2024 Polyneuropathy 05/25/2024 Mild episode of recurrent major depressive disor abdi 05/25/2024 Gastroesophageal reflux disease without esophagi tis 05/25/2024 Chronic bilateral low back pain with bilateral s ciatica 05/25/2024 Tobacco dependence syndrome 05/19/2017 Abdominal aortic aneurysm (AAA) 05/19/2017 Encounters Date Type Department Care Team Description 12/07/2024 External Device Data [facility] Provider, Abstract 11/23/2024 External Device Data [facility] Provider, Abstract 10/28/2024 External Device Data [facility] Provider, Abstract 10/27/2024 External Device Data [facility] Provider, Abstract 10/26/2024 External Device Data [facility] Provider, Abstract from Last 3 Months Social History Tobacco Use Types Packs/Day Years Used Date Smoking Tobacco: Every Day Cigarettes Smokeless Tobacco: Never Tobacco Cessation:Ready to Q uit: Not Asked; Counseling Given: Not Answered Alcohol Use Standard Drinks/Week Comments Never 0 (1 standard drink = 0.6 oz pur e alcohol) Feeling Safe Answer Date Recorded Are you in a relationship wi th someone who hurts you emotionally and/or physically? 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 Legal Sex Male 10:06 AM CDT Gender Identity Male 05/18/2024 5:16 PM SPLINE ROLLING MACHINE JOB SETTER Sexual Orientation Straight 05/18/2024 5: 16 PM SPLINE ROLLING MACHINE JOB SETTER Last Filed Vital Signs Vital Sign Reading Time Taken Comments Blood Pressure 102/52 07/02/2024 1:46 PM SPLINE ROLLING MACHINE JOB SETTER Pulse 71 07/02/2024 1:46 PM SPLINE ROLLING MACHINE JOB SETTER Temperature 36.2 C (97.1 F) 05/31/2024 11:41 AM SPLINE ROLLING MACHINE JOB SETTER Respiratory Rate 18 05/31/2024 11:41 AM SPLINE ROLLING MACHINE JOB SETTER Oxygen Saturation 95% 07/02/2024 1:46 PM SPLINE ROLLING MACHINE JOB SETTER Inhaled Oxygen Concentration - - Weight 68.9 kg (152 lb) 07/02/2024 1:46 PM SPLINE ROLLING MACHINE JOB SETTER Height 185.4 cm (6' 1 ) 07/02/2024 1:46 PM SPLINE ROLLING MACHINE JOB SETTER Body Mass Index 20.05 07/02/2024 1:46 PM SPLINE ROLLING MACHINE JOB SETTER Plan of Treatment Health Maintenance Due Date Last Done Comments FIT/ DNA Q 3 YEARS (AUTO ORDER) 1980 FIT/FOBT Q 1 YEAR (AUTO ORDER) 1980 FLEX SIG/CT COLONOGRAPHY Q 5 YEARS (AUTO ORDER) 1980 DTAP/TDAP/TD VACCINES (1 - Tdap) 1981 06/09/18 COLORECTAL CANCER SCREENING (AUTO ORDER) 2007 COLORECTAL SCREENING 2007 Colorectal Cancer Screening (AUTO ORDER) 2007 Colorectal Cancer Screening 2007 FIT-DNA Q 3 years 2007 FIT/FOBT Q 1 year 2007 Flex Sig/CT Colonography Q 5 years 2007 ZOSTER VACCINE (1 of 2) 2012 RSV VACCINE (60+ or ) (1 - Risk 60-74 years 1-dose series) 2022 [place] Prev entative Visit/Annual Wellness Visit 06/09/2024 05/25/2024 INFLUENZA VACCINE Completed 02/23/2024, 02/23/2024 Insurance [facility] [id number] Care Teams Telephoner Relationship Specialty Start Date End Date Rajesh Soria MD [address] [id number] PCP - General Family Practice 02/23/24
--- OUTSIDE RECORDS SUMMARY | 2024-12-08 16:51 | XMS_ITS | Patient Health Record ---
Author Organization [facility] Address [address] [place] [address] Care Team Providers Care Automobile Radio Repairer Name Role Phone Mata Lowry Primary Care Provider UnavailVanna Varghese Unavailable [phone] Migration, Provider Unavailable Unavailable Alyse Segal Unavailable [phone] Carmen Corona Unavailable [phone] Allergies Allergen (clinical drug ingredient) Drug/Non Drug Allergy documented on EMR Reaction Allergy Type Onset Date Status IV DYE, IODINE CONTAINING (uncoded) Unknown Allergy Active Iodine Unknown Drug Allergy Active Iodinated contrast media (substance) Iodinated Diagnostic Agents Unknown Drug Allergy Active Results Component Value Reference Range Notes Urine Drug Screen (cup read) - 16404 Reviewed date:09/23/2024 04:59:25 PM Interpretation: Performing Lab: Notes/Report: OXY Pos Urine Confirmation Panel (in strument) - [id number] Reviewed date:09/28/2024 09:56:54 AM Interpretation: Performing Lab: Notes/Report: 6-Acetylmorphine 0 <6 ng/mL This test w as developed and its performance characteristics determined by [facility]. It has not been cleared or approved by the U.S. Food and Drug Administration. 7-Aminoclonazepam 0 <60 ng/mL This test was developed and its performance characteristics determined by [facility]. It has not been cleared or approved by the U.S. Food and Drug Administration. Alprazolam 0 <60 ng/mL This test was d eveloped and its performance characteristics determined by [facility]. It has not been cleared or approved by the U.S. Food and Drug Administration. Amphetamine 0 <75 ng/mL This test was d eveloped and its performance characteristics determined by [facility]. It has not been cleared or approved by the U.S. Food and Drug Administration. aOH-Alprazolam 0 <60 ng/mL This test was developed and its performance characteristics determined by [facility]. It has not been cleared or approved by the U.S. Food and Drug Administration. Buprenorphine 0.0 <7.5 ng/mL This test was developed and its performance characteristics determined by [facility]. It has not been cleared or approved by the U.S. Food and Drug Administration. Norbuprenorphine 0.0 <37.5 ng/mL This test w as developed and its performance characteristics determined by [facility]. It has not been cleared or approved by the U.S. Food and Drug Administration. Carisoprodol 0 <75 ng/mL This test was d eveloped and its performance characteristics determined by [facility]. It has not been cleared or approved by the U.S. Food and Drug Administration. Codeine 0 <75 ng/mL This test was d eveloped and its performance characteristics determined by [facility]. It has not been cleared or approved by the U.S. Food and Drug Administration. EDDP 0 <75 ng/mL This test was d eveloped and its performance characteristics determined by [facility]. It has not been cleared or approved by the U.S. Food and Drug Administration. Fentanyl 0 <6 ng/mL This test was d eveloped and its performance characteristics determined by [facility]. It has not been cleared or approved by the U.S. Food and Drug Administration. Hydrocodone 0 <75 ng/mL This test was d eveloped and its performance characteristics determined by [facility]. It has not been cleared or approved by the U.S. Food and Drug Administration. Hydromorphone 0 <75 ng/mL This test was developed and its performance characteristics determined by [facility]. It has not been cleared or approved by the U.S. Food and Drug Administration. Lorazepam 0 <60 ng/mL This test was d eveloped and its performance characteristics determined by [facility]. It has not been cleared or approved by the U.S. Food and Drug Administration. MDMA 0 <75 ng/mL This test was d eveloped and its performance characteristics determined by [facility]. It has not been cleared or approved by the U.S. Food and Drug Administration. Meperidine 0.0 <37.5 ng/mL This test was d eveloped and its performance characteristics determined by [facility]. It has not been cleared or approved by the U.S. Food and Drug Administration. Meprobamate 0 <75 ng/mL This test was d eveloped and its performance characteristics determined by [facility]. It has not been cleared or approved by the U.S. Food and Drug Administration. Methamphetamine 0 <75 ng/mL This test wa s developed and its performance characteristics determined by [facility]. It has not been cleared or approved by the U.S. Food and Drug Administration. Methadone 0 <75 ng/mL This test was d eveloped and its performance characteristics determined by [facility]. It has not been cleared or approved by the U.S. Food and Drug Administration. Morphine 0 <75 ng/mL This test was d eveloped and its performance characteristics determined by [facility]. It has not been cleared or approved by the U.S. Food and Drug Administration. Nordiazepam 0 <60 ng/mL This test was d eveloped and its performance characteristics determined by [facility]. It has not been cleared or approved by the U.S. Food and Drug Administration. Norfentanyl 0 <6 ng/mL This test was d eveloped and its performance characteristics determined by [facility]. It has not been cleared or approved by the U.S. Food and Drug Administration. Normeperidine 0.0 <37.5 ng/mL This test was developed and its performance characteristics determined by [facility]. It has not been cleared or approved by the U.S. Food and Drug Administration. O-desmethyltramadol 0 <75 ng/mL This homero t was developed and its performance characteristics determined by [facility]. It has not been cleared or approved by the U.S. Food and Drug Administration. Oxazepam 0 <60 ng/mL This test was d eveloped and its performance characteristics determined by [facility]. It has not been cleared or approved by the U.S. Food and Drug Administration. Oxycodone >2500.0 <37.5 ng/mL This test was d eveloped and its performance characteristics determined by [facility]. It has not been cleared or approved by the U.S. Food and Drug Administration. Oxymorphone 0 <75 ng/mL This test was d eveloped and its performance characteristics determined by [facility]. It has not been cleared or approved by the U.S. Food and Drug Administration. Phencyclidine 0.0 <7.5 ng/mL This test was developed and its performance characteristics determined by [facility]. It has not been cleared or approved by the U.S. Food and Drug Administration. Tapentadol 0.0 <37.5 ng/mL This test was d eveloped and its performance characteristics determined by [facility]. It has not been cleared or approved by the U.S. Food and Drug Administration. Temazepam 8 <60 ng/mL This test was d eveloped and its performance characteristics determined by [facility]. It has not been cleared or approved by the U.S. Food and Drug Administration. Tramadol 0 <75 ng/mL This test was d eveloped and its performance characteristics determined by [facility]. It has not been cleared or approved by the U.S. Food and Drug Administration. Norhydrocodone 0 <75 ng/mL This test was developed and its performance characteristics determined by [facility]. It has not been cleared or approved by the U.S. Food and Drug Administration. Noroxycodone 1631 <38 ng/mL This test was d eveloped and its performance characteristics determined by [facility]. It has not been cleared or approved by the U.S. Food and Drug Administration. Pregabalin 0 <225 ng/mL This test was d eveloped and its performance characteristics determined by [facility]. It has not been cleared or approved by the U.S. Food and Drug Administration. Gabapentin >29046 <225 ng/mL This test was d eveloped and its performance characteristics determined by [facility]. It has not been cleared or approved by the U.S. Food and Drug Administration. Benzoylecgonine 0.0 <37.5 ng/mL This test wa s developed and its performance characteristics determined by [facility]. It has not been cleared or approved by the U.S. Food and Drug Administration. 4-Hydroxy Xylazine 0 <25 ng/mL This test was developed and its performance characteristics determined by [facility]. It has not been cleared or approved by the U.S. Food and Drug Administration. [facility] Drug Screen Reviewed date:10/14/2024 03:12:15 PM Interpretation: Performing Lab: Notes/Report: Urine Drug Screen (cup read) - [id number] Reviewed date:11/23/2024 04:26:07 PM Interpretation: Performing Lab: Notes/Report: OPI + OXY + Urine Confirmation Panel (in strument) - [id number] Reviewed date:11/30/2024 01:55:32 PM Interpretation: Performing Lab: Notes/Report: 6-Acetylmorphine 0 <6 ng/mL This test w as developed and its performance characteristics determined by [facility]. It has not been cleared or approved by the U.S. Food and Drug Administration. 7-Aminoclonazepam 0 <60 ng/mL This test was developed and its performance characteristics determined by [facility]. It has not been cleared or approved by the U.S. Food and Drug Administration. Alprazolam 0 <60 ng/mL This test was d eveloped and its performance characteristics determined by [facility]. It has not been cleared or approved by the U.S. Food and Drug Administration. Amphetamine 0 <75 ng/mL This test was d eveloped and its performance characteristics determined by [facility]. It has not been cleared or approved by the U.S. Food and Drug Administration. aOH-Alprazolam 0 <60 ng/mL This test was developed and its performance characteristics determined by [facility]. It has not been cleared or approved by the U.S. Food and Drug Administration. Buprenorphine 0.0 <7.5 ng/mL This test was developed and its performance characteristics determined by [facility]. It has not been cleared or approved by the U.S. Food and Drug Administration. Norbuprenorphine 0.0 <37.5 ng/mL This test w as developed and its performance characteristics determined by [facility]. It has not been cleared or approved by the U.S. Food and Drug Administration. Carisoprodol 0 <75 ng/mL This test was d eveloped and its performance characteristics determined by [facility]. It has not been cleared or approved by the U.S. Food and Drug Administration. Codeine 0 <75 ng/mL This test was d eveloped and its performance characteristics determined by [facility]. It has not been cleared or approved by the U.S. Food and Drug Administration. EDDP 0 <75 ng/mL This test was d eveloped and its performance characteristics determined by [facility]. It has not been cleared or approved by the U.S. Food and Drug Administration. Fentanyl 0 <6 ng/mL This test was d eveloped and its performance characteristics determined by [facility]. It has not been cleared or approved by the U.S. Food and Drug Administration. Hydrocodone 0 <75 ng/mL This test was d eveloped and its performance characteristics determined by [facility]. It has not been cleared or approved by the U.S. Food and Drug Administration. Hydromorphone 0 <75 ng/mL This test was developed and its performance characteristics determined by [facility]. It has not been cleared or approved by the U.S. Food and Drug Administration. Lorazepam 0 <60 ng/mL This test was d eveloped and its performance characteristics determined by [facility]. It has not been cleared or approved by the U.S. Food and Drug Administration. MDMA 0 <75 ng/mL This test was d eveloped and its performance characteristics determined by [facility]. It has not been cleared or approved by the U.S. Food and Drug Administration. Meperidine 0.0 <37.5 ng/mL This test was d eveloped and its performance characteristics determined by [facility]. It has not been cleared or approved by the U.S. Food and Drug Administration. Meprobamate 0 <75 ng/mL This test was d eveloped and its performance characteristics determined by [facility]. It has not been cleared or approved by the U.S. Food and Drug Administration. Methamphetamine 0 <75 ng/mL This test wa s developed and its performance characteristics determined by [facility]. It has not been cleared or approved by the U.S. Food and Drug Administration. Methadone 0 <75 ng/mL This test was d eveloped and its performance characteristics determined by [facility]. It has not been cleared or approved by the U.S. Food and Drug Administration. Morphine 0 <75 ng/mL This test was d eveloped and its performance characteristics determined by [facility]. It has not been cleared or approved by the U.S. Food and Drug Administration. Nordiazepam 0 <60 ng/mL This test was d eveloped and its performance characteristics determined by [facility]. It has not been cleared or approved by the U.S. Food and Drug Administration. Norfentanyl 0 <6 ng/mL This test was d eveloped and its performance characteristics determined by [facility]. It has not been cleared or approved by the U.S. Food and Drug Administration. Normeperidine 0.0 <37.5 ng/mL This test was developed and its performance characteristics determined by [facility]. It has not been cleared or approved by the U.S. Food and Drug Administration. O-desmethyltramadol 0 <75 ng/mL This homero t was developed and its performance characteristics determined by [facility]. It has not been cleared or approved by the U.S. Food and Drug Administration. Oxazepam 0 <60 ng/mL This test was d eveloped and its performance characteristics determined by [facility]. It has not been cleared or approved by the U.S. Food and Drug Administration. Oxycodone >2500.0 <37.5 ng/mL This test was d eveloped and its performance characteristics determined by [facility]. It has not been cleared or approved by the U.S. Food and Drug Administration. Oxymorphone 2548 <75 ng/mL This test was d eveloped and its performance characteristics determined by [facility]. It has not been cleared or approved by the U.S. Food and Drug Administration. Phencyclidine 0.0 <7.5 ng/mL This test was developed and its performance characteristics determined by [facility]. It has not been cleared or approved by the U.S. Food and Drug Administration. Tapentadol 0.8 <37.5 ng/mL This test was d eveloped and its performance characteristics determined by [facility]. It has not been cleared or approved by the U.S. Food and Drug Administration. Temazepam 0 <60 ng/mL This test was d eveloped and its performance characteristics determined by [facility]. It has not been cleared or approved by the U.S. Food and Drug Administration. Tramadol 0 <75 ng/mL This test was d eveloped and its performance characteristics determined by [facility]. It has not been cleared or approved by the U.S. Food and Drug Administration. Norhydrocodone 0 <75 ng/mL This test was developed and its performance characteristics determined by [facility]. It has not been cleared or approved by the U.S. Food and Drug Administration. Noroxycodone >2500 <38 ng/mL This test was d eveloped and its performance characteristics determined by [facility]. It has not been cleared or approved by the U.S. Food and Drug Administration. Pregabalin 0 <225 ng/mL This test was d eveloped and its performance characteristics determined by [facility]. It has not been cleared or approved by the U.S. Food and Drug Administration. Gabapentin >94147 <225 ng/mL This test was d eveloped and its performance characteristics determined by [facility]. It has not been cleared or approved by the U.S. Food and Drug Administration. Benzoylecgonine 0.0 <37.5 ng/mL This test wa s developed and its performance characteristics determined by [facility]. It has not been cleared or approved by the U.S. Food and Drug Administration. 4-Hydroxy Xylazine 0 <25 ng/mL This test was developed and its performance characteristics determined by [facility]. It has not been cleared or approved by the U.S. Food and Drug Administration. Urine Drug Screen (cup read) - [id number] Reviewed date:05/28/2024 04:47:49 PM Interpretation: Performing Lab: Notes/Report: OXY POS zzzUrine Drug Screen (confir mation by instrument) - [id number] Reviewed date:05/28/2024 04:50:10 PM Interpretation: Performing Lab: Notes/Report: Tox Results Reviewed date:11/30/2024 02:11:38 PM Interpretation: Performing Lab: Notes/Report: Tox Results Reviewed date:09/28/2024 10:28:30 AM Interpretation: Performing Lab: Notes/Report: Reason For Referral No Information Medications Medication SIG (Take, Route, Frequency, Duration) Notes Start Date End Date Status oxyCODONE HCl 15 MG 1 tablet Orally every 4-6 hrs for 30 days As needed Not to exceed 4 per day fill 01/05/25 11/23/2024 Active Furosemide *Pick strength-f orm from hoozin for eRX* Unknown Furosemide 20 MG Oral Tablet Furosemide 20 MG Oral Tablet 05/19/2018 Unknown Baclofen 20 MG 1 tablet with food or milk Orally Three times a day for 30 day(s) Unknown Medrol 32 MG 1 tablet 12 hours prior to appointment time and 1 tablet 2 hours prior to appointment time. Orally for 2 days Unknown Benadryl 25 MG Take 50 mg Benadryl [address] Orally for 1 days Unknown Medrol 32 MG Take 1st dose Medrol 32 mg [address] Take 2nd dose of Medrol 2 hr prior. Take 50 mg Benadryl 1 hr prior Orally for 1 days 08/08/2020 Unknown oxyCODONE HCl 15 MG 1 tablet Orally every 4-6 hrs for 30 days As needed Not to exceed 4 per day fill 12/06/24 11/23/2024 5 Active Citalopram *Reorder from hoozin for eRx and Interaction Alerts* Unknown pantoprazole *Reorder from hoozin for eRx and Interaction Alerts* Unknown Citalopram 10 MG Oral Tablet Citalopram 10 MG Oral Tablet 05/19/2018 Unknown pantoprazole 40 MG Enteric Coated Tablet pantoprazole 40 MG Enteric Coated Tablet 05/19/2018 Unknown Gabapentin 600 MG 1.5 tablet Orally TID 900mg tid Unknown Lisinopril *Pick strength-f orm from hoozin for eRX* Unknown Lisinopril 10 MG Oral Tablet Lisinopril 10 MG Oral Tablet 05/19/2018 Unknown Lovastatin 10 MG Oral Tablet Lovastatin 10 MG Oral Tablet 05/19/2018 Unknown Baclofen 5 MG 1 tablet as needed Orally 3 times a day for 30 days 11/23/2024 5 Active diphenhydrAMINE HCl 50 MG 1 capsule 1 hour prior to appointment time Orally Once for 1 day Unknown Tamsulosin hydrochloride 0.4 MG Oral Capsule Tamsulosin hydrochloride 0.4 MG Oral Capsule 05/19/2018 Unknown Verapamil *Reorder from hoozin for eRx and Interaction Alerts* Unknown Gabapentin 300 MG 1 capsule Orally three times a day for 30 days fill 30 days from last refill Active Verapamil hydrochloride 180 MG Extended Release Tablet Verapamil hydrochloride 180 MG Extended Release Tablet 05/19/2018 Unknown Gabapentin 600 MG 1 tablet Orally three a day for 30 days fill 30 days from last fill Active Immunizations Vaccine Route Administration Date Status Comme nts Influenza (split), 3 yrs and above Unknown 04/03/2018 Others Admin When: 2017 Pneumococcal conjugate PCV 7 Unknown 04/03/2018 Others Admin When: 2017 Social History Tobacco Use: Social History Observation Description Date Details (start date - stop date) Current Smoker NA - NA xTobacco Use/Smoking Question Answer Notes Are you a current smoker How many cigarettes a day do you smoke? 04-28 Alcohol Screen (Audit-C) Question Answer Notes Did you have a drink containing alcohol in the p ast year? No Points 0 Interpretation Negative PHQ-9 Question Answer Notes Little interest or pleasure in doing things Not at all Feeling down, depressed, or hopeless More than h intermediate the days Trouble falling or staying asleep, or sleeping t oo much Several days Feeling tired or having little energy More than half the days Poor appetite or overeating Several days Feeling bad about yourself, or that you are a failure, or have let yourself or your family down Not at all Trouble concentrating on thi ngs, such as reading the newspaper or watching television Several days Moving or speaking so slowly that other people could have noticed. Or the opposite ? being so fidgety or restless that you have been moving around a lot more than usual Not at all Thoughts that you would be b julissa off , or of hurting yourself in some way Not at all Total Score 7 Interpretation Mild Depression Problems Problem Type SNOMED Code ICD Code Onset Dates Problem Status W/U Status Risk Notes Problem Polyneuropathy (39505293) Polyneuropathy, unspecified (G62.9) Active confirmed Problem Paraplegia (40654540) Paraplegia, unspecified (G82.20) 12/10/19 24 Active confirmed Problem 732518570637133 Paraplegia, complete (G82.21) Active confirmed Problem 62536694 Other chronic pain (G89.29) Active confirmed Problem Chronic pain syndrome (715686258) Chronic pain syndrome (G89.4) 12/10/19 24 Active confirmed Problem Traumatic arthropathy of the shoulder region (175628595) Traumatic arthropathy, 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) 12/10/19 24 Active confirmed Problem Acquired spondylolisthesis (313352373) Spondylolysis, 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) Active confirmed Problem 74788465 Cervicalgia (M54.2) Active confirmed Problem 836833880 Low back pain (M54.5) Active confirmed Problem 516303806528383 Pain in thoracic spine (M54.6) Active confirmed Problem Abdominal aortic aneurysm without rupture (71951634) Abdominal aortic aneurysm (AAA) without rupture (I71.4) Active confirmed Problem Thoracic aortic aneurysm without rupture (07847699) Ascending aortic aneurysm (I71.2) Active confirmed Problem Neuropathy (440340250) Neuropathy (G62.9) Active confirmed Problem 704408750 Lumbar radiculopathy (M54.16) Active confirmed Problem Degeneration of lumbosacral intervertebral disc (74408425) Disc degeneration, lumbosacral (M51.37) Active confirmed Problem 81553214 Myalgia (M79.10) Active confirmed Problem 434816160 Chronic prescription opiate use (Z79.891) Active confirmed Problem 032289037 Compression fracture of T12 vertebra with routine healing, subsequent encounter (S22.080D) Active confirmed Problem Paralysis (18516333) Paralysis (G83.9) Active confirmed Problem History of endovascular stent graft for repair of abdominal aortic aneurysm (situation) (832653398758817) History of endovascular stent graft for abdominal aortic aneurysm (AAA) (Z95.828) Active confirmed Problem Contrast media allergy (318619568) 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) Active confirmed Vital Signs Height-cm 185.42 cm 11/23/2024 Weight-kg 65.32 kg 11/23/2024 Height 73.00 in 11/23/2024 Weight 144 lbs 11/23/2024 BMI 19 kg/m2 11/23/2024 Procedures Procedure Date Ordered Date Performed Result Body Sit e Epidural, Lumbar/Sacral (Cau niles), w/ imaging guidance - [id number] 10/27/2024 10/27/2024 N/A Encounters Encounter Location Date Provider Diagnosis Migrated_Facility 0 0 04/03/2024 Provider Migration [facility]rated[facility]Facility 0 0 04/04/2024 Provider Migration [facility] [address] [facility] [place] [address] [facility] G89.4 and Muscle spasm M62.838 [facility] [address] [place] [address] 10/04/2024 [facility] [facility] [address] [facility] [place] [address] 10/15/2024 Alysegabrielle Segal Chronic pain syndrome G89.4 [facility] [address] [facility] [place] [address] 10/27/2024 Alysegabrielle Segal Chronic pain syndrome G89.4 [facility] [address] [facility] [place] [address] 12/10/2023 Alyse Luzma Paraplegia, unspecified G82.20 ; Chronic pain syndrome G89.4 and Traumatic arthropathy, 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 [facility] [place] [address] [place] [address], [place] [address] 02/12/2024 Carmen Corona [facility] [address] [place] [address] 04/08/2024 Carmen Corona [facility] [address] [facility] [place] [address] 05/26/2024 Alyse Luzma Paraplegia, unspecified G82.20 ; Chronic pain syndrome G89.4 ; Neuropathy G62.9 ; Cervicalgia M54.2 ; Spondylolysis, 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 ; Traumatic arthropathy, 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 ; Acquired right foot drop M21.371 ; Muscle spasm M62.838 and Admission for long-term opiate analgesic use Z79.891 [facility] [place] [address] [place] [facility] [place] [address] 08/05/2024 Carmen Corona Paraplegia, unspecified G82.20 ; Chronic pain syndrome G89.4 ; Neuropathy G62.9 ; Cervicalgia M54.2 ; Spondylolysis, 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 ; Traumatic arthropathy, 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 ; Acquired right foot drop M21.371 ; Muscle spasm M62.838 and Admission for long-term opiate analgesic use Z79.891 [facility] [address] [facility] [place] [address] 09/23/2024 Alyse Segal Paraplegia, unspecified G82.20 ; Chronic pain syndrome G89.4 ; Neuropathy G62.9 ; Cervicalgia M54.2 ; Spondylolysis, 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 ; Lumbar radiculopathy M54.16 ; Traumatic arthropathy, 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 ; Acquired right foot drop M21.371 ; Muscle spasm M62.838 and Admission for long-term opiate analgesic use Z79.891 [facility] [address] [place] [address] 10/07/2024 Alyse Segal Paraplegia, unspecified G82.20 ; Chronic pain syndrome G89.4 ; Neuropathy G62.9 ; Cervicalgia M54.2 ; Spondylolysis, 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 ; Lumbar radiculopathy M54.16 ; Traumatic arthropathy, 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 ; Pain in right hip M25.551 ; Acquired right foot drop M21.371 ; Muscle spasm M62.838 and Admission for long-term opiate analgesic use Z79.891 [facility] [place] [address] [place] [address] 11/23/2024 Vanna Celis-Pric e Chronic pain syndrome G89.4 ; Paraplegia, unspecified G82.20 ; Lumbar radiculopathy M54.16 ; Neuropathy G62.9 ; Cervicalgia M54.2 ; Spondylolysis, 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 ; Traumatic arthropathy, 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 ; Pain in right hip M25.551 ; Acquired right foot drop M21.371 ; Muscle spasm M62.838 ; Myalgia M79.10 and Admission for long-term opiate analgesic use Z79.891 [facility] [address] [place] [address] 10/27/2024 Vanna Celis-Pric e Lumbar radiculopathy M54.16 Assessments Encounter Date Diagnosis (ICD Code) Assessment Notes Treatment Notes Treatment Clinical Notes Section Notes 12/10/2023 Paraplegia, unspecified (ICD-10 - G82.20) 12/10/2023 Chronic pain syndrome (ICD-10 - G89.4) 12/10/2023 Traumatic arthropathy, left shoulder (ICD-10 - M12.512) 05/26/2024 Paraplegia, unspecified (ICD-10 - G82.20) 05/26/2024 Chronic pain syndrome (ICD-10 - G89.4) 08/05/2024 Paraplegia, unspecified (ICD-10 - G82.20) 08/05/2024 Chronic pain syndrome (ICD-10 - G89.4) 09/23/2024 Paraplegia, unspecified (ICD-10 - G82.20) 10/07/2024 Paraplegia, unspecified (ICD-10 - G82.20) 10/15/2024 Chronic pain syndrome (ICD-10 - G89.4) 10/27/2024 Lumbar radiculopathy (ICD-10 - M54.16) 10/27/2024 Chronic pain syndrome (ICD-10 - G89.4) 11/23/2024 Paraplegia, unspecified (ICD-10 - G82.20) 11/23/2024 Chronic pain syndrome (ICD-10 - G89.4) Mr. Yadav is a very pleasant gentleman with lumbosacral spondylosis and lumbosacral radiculopathy mediated pain. He's doing quite well on his current regimen of Oxycodone 15/325 mg up to four tablets per day. He was inquiring about switching back over to the Baclofen and continuing the Gabapentin at 900 mg TID. He reports that he can no longer have the mail order pharmacy as he's currently living out of a mobile home because he's lost his house. He previously was taking Tizanidine 4 mg up to three times a day, and we'll switch him over to Baclofen 5 mg three times a day as he's tolerated this will in the past. He has Narcan available for him at home. In the past, he's had lumbosacral medial branch RFTCs, and he is reporting ongoing relief of his symptoms from axial pain. We'll see him back in two months with the nurse practitioner. 10/07/2024 Neuropathy (ICD-10 - G62.9) 10/07/2024 Chronic pain syndrome (ICD-10 - G89.4) 09/23/2024 Neuropathy (ICD-10 - G62.9) 09/23/2024 Chronic pain syndrome (ICD-10 - G89.4) 08/05/2024 Muscle spasm (ICD-10 - M62.838) 08/05/2024 Chronic pain syndrome (ICD-10 - G89.4) 08/05/2024 Neuropathy (ICD-10 - G62.9) 05/26/2024 Neuropathy (ICD-10 - G62.9) 11/23/2024 Lumbar radiculopathy (ICD-10 - M54.16) RECOMMEND THERAPEUTIC LUMBAR EPIDURAL STEROID INJECTION, levels L4-L5 The patient reports overall 50% improvement in function and decrease in pain for greater than one month from previous diagnostic NATHALY. The patient also reports improvement in tolerance to activities which generally cause pain. Based on the results of previous diagnostic NATHALY, a therapeutic NATHALY is recommended. Expectation from a successful therapeutic epidural steroid injection is at least 50-70% relief of pain from baseline and evidence of improved function for at least six to eight weeks after delivery. The goal of epidural steroid injections is to reduce pain and inflammation, restoring range of motion and, thereby, facilitating progress in more active treatment programs, and avoiding surgery. The procedure and risks were discussed with the patient including but not limited to infection, bleeding, neurological complications, side effects from medications, no change in pain, worsening of pain, or even . We also discussed conservative options, surgical options, and medical management with patient as well. The patient indicates understanding and wishes to proceed with the recommended treatment approach. The patient was given written information about the procedure and all questions were answered. The procedure and risks were discussed with the patient including but not limited to infection, bleeding, neurological complications, side effects from medications, no change in pain, worsening of pain, or even . We also discussed conservative options, surgical options, and medical management with patient as well. The patient indicates understanding and wishes to proceed with the recommended treatment approach. The patient was given written information about the procedure and all questions were answered. 11/23/2024 Neuropathy (ICD-10 - G62.9) 10/07/2024 Cervicalgia (ICD-10 - M54.2) 05/26/2024 Cervicalgia (ICD-10 - M54.2) Imaging reviewed with patient and his spouse who is present in the exam room, all questions and concerns have been addressed, treatment options discussed, patient chooses to continue pain management, I have offered a brace to help with the back pain. Vertebroplasty discussed, he is not inclined to consider that at this point. Patient may return as needed. Continue with Dr. Centeno for pain management [facility] 08/05/2024 Cervicalgia (ICD-10 - M54.2) Imaging reviewed with patient and his spouse who is present in the exam room, all questions and concerns have been addressed, treatment options discussed, patient chooses to continue pain management, I have offered a brace to help with the back pain. Vertebroplasty discussed, he is not inclined to consider that at this point. Patient may return as needed. Continue with Dr. Centeno for pain management [facility]. The patient continues with chronic pain requiring treatment to help restore function and improve quality of life. Risks of opioid therapy as well as interaction of opioids with alcohol, illicit drugs, muscle relaxers, and other sedative medications are reviewed briefly with patient again today. The patient has trialed all other reasonable treatment options and uses the medication to alleviate pain in order to remain active and rest with less pain. No clinically relevant medication side effects are noted. Last UDS and [place] [facility] reviewed today. Patient is advised that best long-term goals include increased activity, core strengthening, proper weight management, coping strategies, avoidance of painful triggers, and targeted interventional therapy. We will see the patient for routine follow up in accordance with all clinic policies. We did remind patient today of current guidelines to decrease opioid when possible. We will continue to stress nonopioid treatment. 09/23/2024 Cervicalgia (ICD-10 - M54.2) 10/07/2024 Spondylolysis, cervical region (ICD-10 - M43.02) 09/23/2024 Spondylolysis, cervical region (ICD-10 - M43.02) 08/05/2024 Spondylolysis, cervical region (ICD-10 - M43.02) 05/26/2024 Spondylolysis, cervical region (ICD-10 - M43.02) 11/23/2024 Cervicalgia (ICD-10 - M54.2) 05/26/2024 Traumatic arthropathy, left shoulder (ICD-10 - M12.512) 11/23/2024 Spondylolysis, cervical region (ICD-10 - M43.02) 08/05/2024 Traumatic arthropathy, left shoulder (ICD-10 - M12.512) 10/07/2024 Lumbar radiculopathy (ICD-10 - M54.16) RECOMMEND THERAPEUTIC LUMBAR EPIDURAL STEROID INJECTION, levels L4-L5 The patient reports overall 50% improvement in function and decrease in pain for greater than one month from previous diagnostic NATHALY. The patient also reports improvement in tolerance to activities which generally cause pain. Based on the results of previous diagnostic NATHALY, a therapeutic NATHALY is recommended. Expectation from a successful therapeutic epidural steroid injection is at least 50-70% relief of pain from baseline and evidence of improved function for at least six to eight weeks after delivery. The goal of epidural steroid injections is to reduce pain and inflammation, restoring range of motion and, thereby, facilitating progress in more active treatment programs, and avoiding surgery. The procedure and risks were discussed with the patient including but not limited to infection, bleeding, neurological complications, side effects from medications, no change in pain, worsening of pain, or even . We also discussed conservative options, surgical options, and medical management with patient as well. The patient indicates understanding and wishes to proceed with the recommended treatment approach. The patient was given written information about the procedure and all questions were answered. The procedure and risks were discussed with the patient including but not limited to infection, bleeding, neurological complications, side effects from medications, no change in pain, worsening of pain, or even . We also discussed conservative options, surgical options, and medical management with patient as well. The patient indicates understanding and wishes to proceed with the recommended treatment approach. The patient was given written information about the procedure and all questions were answered. 09/23/2024 Lumbar radiculopathy (ICD-10 - M54.16) RECOMMEND THERAPEUTIC LUMBAR EPIDURAL STEROID INJECTION, levels L4-L5 The patient reports overall 50% improvement in function and decrease in pain for greater than one month from previous diagnostic NATHALY. The patient also reports improvement in tolerance to activities which generally cause pain. Based on the results of previous diagnostic NATHALY, a therapeutic NATHALY is recommended. Expectation from a successful therapeutic epidural steroid injection is at least 50-70% relief of pain from baseline and evidence of improved function for at least six to eight weeks after delivery. The goal of epidural steroid injections is to reduce pain and inflammation, restoring range of motion and, thereby, facilitating progress in more active treatment programs, and avoiding surgery. The procedure and risks were discussed with the patient including but not limited to infection, bleeding, neurological complications, side effects from medications, no change in pain, worsening of pain, or even . We also discussed conservative options, surgical options, and medical management with patient as well. The patient indicates understanding and wishes to proceed with the recommended treatment approach. The patient was given written information about the procedure and all questions were answered. The procedure and risks were discussed with the patient including but not limited to infection, bleeding, neurological complications, side effects from medications, no change in pain, worsening of pain, or even . We also discussed conservative options, surgical options, and medical management with patient as well. The patient indicates understanding and wishes to proceed with the recommended treatment approach. The patient was given written information about the procedure and all questions were answered. 10/07/2024 Traumatic arthropathy, left shoulder (ICD-10 - M12.512) 11/23/2024 Traumatic arthropathy, left shoulder (ICD-10 - M12.512) 05/26/2024 Acquired right foot drop (ICD-10 - M21.371) 09/23/2024 Traumatic arthropathy, left shoulder (ICD-10 - M12.512) 08/05/2024 Acquired right foot drop (ICD-10 - M21.371) 08/05/2024 Muscle spasm (ICD-10 - M62.838) 11/23/2024 Pain in right hip (ICD-10 - M25.551) RECOMMEND SI JOINT INJECTION The patient has failed conservative treatment of drug therapy, activity modifications, and physical therapy, and is being evaluated for sacroiliac joint syndrome. Sacroiliac joint dysfunction is estimated to affect between 15-30% of patients. A sacroiliac intraarticular injection is being requested not only as a therapeutic intervention but also to confirm the diagnosis. The patient will undergo a sacroiliac joint intraarticular injection under fluoroscopy then be seen for follow-up reevaluation. The procedure and risks were discussed with the patient including but not limited to infection, bleeding, neurological complications, side effects from medications, no change in pain, worsening of pain, or even . We also discussed conservative options, surgical options, and medical management with patient as well. The patient indicates understanding and wishes to proceed with the recommended treatment approach. The patient was given written information about the procedure and all questions were answered. 10/07/2024 Pain in right hip (ICD-10 - M25.551) RECOMMEND SI JOINT INJECTION The patient has failed conservative treatment of drug therapy, activity modifications, and physical therapy, and is being evaluated for sacroiliac joint syndrome. Sacroiliac joint dysfunction is estimated to affect between 15-30% of patients. A sacroiliac intraarticular injection is being requested not only as a therapeutic intervention but also to confirm the diagnosis. The patient will undergo a sacroiliac joint intraarticular injection under fluoroscopy then be seen for follow-up reevaluation. The procedure and risks were discussed with the patient including but not limited to infection, bleeding, neurological complications, side effects from medications, no change in pain, worsening of pain, or even . We also discussed conservative options, surgical options, and medical management with patient as well. The patient indicates understanding and wishes to proceed with the recommended treatment approach. The patient was given written information about the procedure and all questions were answered. 09/23/2024 Acquired right foot drop (ICD-10 - M21.371) 05/26/2024 Muscle spasm (ICD-10 - M62.838) 09/23/2024 Muscle spasm (ICD-10 - M62.838) 05/26/2024 Admission for long-term opiate analgesic use (ICD-10 - Z79.891) 08/05/2024 Admission for long-term opiate analgesic use (ICD-10 - Z79.891) 10/07/2024 Acquired right foot drop (ICD-10 - M21.371) 11/23/2024 Acquired right foot drop (ICD-10 - M21.371) 11/23/2024 Muscle spasm (ICD-10 - M62.838) 09/23/2024 Admission for long-term opiate analgesic use (ICD-10 - Z79.891) 10/07/2024 Muscle spasm (ICD-10 - M62.838) 10/07/2024 Admission for long-term opiate analgesic use (ICD-10 - Z79.891) 11/23/2024 Myalgia (ICD-10 - M79.10) 11/23/2024 Admission for long-term opiate analgesic use (ICD-10 - Z79.891) 11/23/2024 Ayla Rios, am scribing for Dr. Mcgovern. I, Dr. Mcgovern, personally performed the services described in this documentation, as scribed by Ayla Quiñonez, and it is both accurate and complete. RECOMMEND URINE TESTING TODAY Urine drug screening will be performed today to monitor compliance with opioid therapy or to serve as a baseline screen for a patient who may be a candidate for opioid therapy in the future, pending UDS results. We will monitor with in-office testing (rapid testing) today and review the results prior to dispensing prescription. All positive results will be sent for quantitative analysis to ensure accuracy and quantify amounts. Any expected positive results that return negative will also be sent for quantitative analysis. Any questionable read or any medication we cannot test for in the office confidently will be sent for quantitative analysis, as well. Patient has been made aware of this policy and agrees to abide by our urine testing policy. Plan Of Treatment Pending Test Test Name Order Date Blood Urea Nitrogen (BUN) 35248 06/21/19 Blood Urea Nitrogen (BUN) 05764 08/09/19 Creatinine (B) 05536 06/21/2019 Creatinine (B) 21381 08/08/2020 CT Abdomen, Pelvis w/ + w/o Contrast-741 78 06/21/2019 CT Abdomen, Pelvis w/o Contrast-29088 CT Chest w/ + w/o Contrast diagnostic-71 270 06/21/2019 CT Chest w/o Contrast diagnostic-[id number] 0 06/17/2019 Next Appt Details Provider Name:Carmen Gabrielle mcguire, 01/27/2025 01:40:00 PM, [address] [place], [address], Insurance Providers Payer Name Payer Address Payer Phone Subscriber Number Group Number Insured Name Patient Relationship to Insured Coverage Start Date Coverage End Date [facility] Medicare Advantage - PPO [address] [address] [place] [address] [phone] [id number] Ang Yadav Self - patient is the insured [employer] [address] [address] [place] [address] [id number] Ang Yadav Self - patient is the insured Medical (General) History Medical History History ICD Code Problem:Abdominal aortic aneurysm (disor abdi) , Status :: Active Problem:Anxiety (finding) , Status :: Ac tive Problem:Coronary arteriosclerosis (disor abdi) , Status :: Active Problem:Disorder of liver (disorder) , S tatus :: Active Problem:History of endovascu lar stent graft for repair of abdominal aortic aneurysm (situation) , Status :: Active Problem:Ischemic disorder of spinal cord (disorder) , Status :: Active Problem:Nicotine dependence (disorder) , Status :: Active Problem:Paralysis (finding) , Status :: Active Problem:Paraplegia (disorder) , Status : : Active Measles Mumps Chicken Pox Pneumonia Arthritis Migraine Back Trouble HBP Bronchitis Stroke CAD Depression Fatty Liver AAA Adrenal Gland Aneurysm Surgical History Surgery Date(Month/Year) abdominal aortic aneurysm repair Rhizotomy 05/2000 Rhizotomy 04/2000 Right Knee 2010 Left Knee 2009 Spinal Tap 06/2020 AAA Knee Surgery Hospitalization History Reason Date(Month/Year) AAA Sx 2017 AAA / 07/2017 Gabapentin Withdrawal 06/2020
--- NOTE | 2024-12-08 16:57 | USR_ITS ---
PROCEDURE INFORMATION: Exam: US Duplex Left Lower Extremity Veins, Limited Exam date and time: 12/08/2024 5:40 PM Age: 64 years old Clinical indication: Pain; Leg, lower; Left; Additional info: Left-sided calf pain and swelling concern for dvt TECHNIQUE: Imaging protocol: Real-time duplex ultrasound of the left extremity with 2-D pearson scale, color Doppler flow and spectral waveform analysis including responses to compression and other maneuvers (when performed) with image documentation. Limited exam focused on the left lower extremity veins. COMPARISON: CT angio abd aorta runof [id number] 08/21/2022 2:10 PM FINDINGS: Left deep veins: Unremarkable. The common femoral, femoral, proximal profunda femoral and popliteal veins are patent without thrombus. Normal Doppler waveforms. Normal compressibility and/or augmentation response. Superficial veins: Greater saphenous vein at the saphenofemoral junction is patent without thrombus. Soft tissues: Unremarkable. US/CV venous duplex [facility] [address] IMPRESSION: No evidence of deep vein thrombosis in the left lower extremity above the knee.
--- NOTE | 2024-12-08 16:58 | ECG_ITS ---
[facility]24[facility]08 Pat Name: Ang Yadav Department: Room: Gender: Male [employer]: : 1960 Requested By: Tish Peterson Order Number: [id number] Peterson MD: Markie Garcia M.D. Measurements Intervals [place] Rate: 72 P: 63 MO: 183 QRS: 74 QRSD: 103 T: 65 QT: 385 QTc: 423 Interpretive Statements SINUS RHYTHM Compared to ECG 03/18/2022 18:15:02 Intraventricular conduction delay no longer present Electronically Signed On 12-09-2024 08:53:35 CDT by Markie Garcia M.D. [email or web address]
--- NOTE | 2024-12-08 17:02 | W.ED.EXTPRO ---
HPI - Extremity Problem General: Chief complaint: Extremity Problem,Nontraumatic Stated complaint: lt foot swelling Time Seen by Provider: 12/08/24 16:55 History of Present Illness: 64-year-old man with a history of tobacco use, hyperlipidemia, coronary artery disease, hypertension and chronic pain syndrome on chronic oxycodone therapy who presents emergency room with left lower extremity pain and swelling. He says this started a few days ago. He says he some difficulty walking on the foot. It is red hot and swollen. He is never anything like this before. He said at times he will have some chest pain but not currently. His temp is 99.2 on presentation. He is not tachycardic or hypoxemic. No systemic fevers. No abdominal pain. No nausea or vomiting. No altered mental status. Related Data Home Medications ?Medication ?Instructions ?Recorded ?Confirmed oxycodone 15 mg tablet 15 mg PO QID 03/18/22 11/17/24 tizanidine 4 mg capsule 4 mg PO BID PRN 09/17/24 11/17/24 Previous Rx's ?Medication ?Instructions ?Recorded sennosides 8.6 mg-docusate sodium 1 tab-cap PO BID #60 tabs 10/22/22 50 mg tablet (Senna with Docusate Sodium) pantoprazole 40 mg tablet,delayed See Rx Instructions .Route 05/07/23 release .COMPLEX #90 tabs tamsulosin 0.4 mg capsule See Rx Instructions .Route 05/07/23 .COMPLEX #90 caps verapamil 180 mg tablet,extended See Rx Instructions .Route 05/07/23 release .COMPLEX #90 tabs atorvastatin 20 mg tablet 20 mg PO DAILY #90 tabs 05/12/23 gabapentin 300 mg capsule 900 mg (3 x 300 mg) PO TID #270 05/12/23 caps lisinopril 10 mg tablet 10 mg PO DAILY #90 tabs 05/12/23 albuterol sulfate 90 mcg/actuation See Rx Instructions .Route 06/11/23 aerosol inhaler .COMPLEX #8.5 grams ezetimibe 10 mg tablet 10 mg PO DAILY #90 tabs 02/26/24 prednisone 20 mg tablet 20 mg PO DAILY #15 tabs 09/21/24 isosorbide mononitrate 30 mg 30 mg PO DAILY #90 tabs 10/15/24 tablet,extended release 24 hr nitroglycerin 0.4 mg sublingual 0.4 mg sublingual Q5M PRN chest 10/15/24 tablet pain #25 tabs escitalopram oxalate 10 mg tablet 10 mg PO DAILY #90 tabs 10/22/24 (Lexapro) cephalexin 500 mg tablet 500 mg PO TID 10 days #30 tabs 12/08/24 Allergies Allergy/AdvReac Type Severity Reaction Status Date / Time Iodinated Contrast Media Allergy Unknown Verified 11/17/24 13:43 Review of Systems Narrative: Constitutional symptoms: Negative except as documented in HPI. Skin symptoms: Negative except as documented in HPI. Eye symptoms: Negative except as documented in HPI. ENMT symptoms: Negative except as documented in HPI. Respiratory symptoms: Negative except as documented in HPI. Cardiovascular symptoms: Negative except as documented in HPI. Gastrointestinal symptoms: Negative except as documented in HPI. Genitourinary symptoms: Negative except as documented in HPI. Musculoskeletal symptoms: Negative except as documented in HPI. Neurologic symptoms: Negative except as documented in HPI. Psychiatric symptoms: Negative except as documented in HPI. Endocrine symptoms: Negative except as documented in HPI. PFSH ED PFSH: Medical History Compression fracture of spine Tobacco use disorder NAFLD (nonalcoholic fatty liver disease) Mixed dyslipidemia AAA (abdominal aortic aneurysm) s/p endovascular graft repair CAD (coronary artery disease) Essential hypertension Major depressive disorder PAD (peripheral artery disease) Spinal cord injury Social History Smoking and tobacco/nicotine status: current every day tobacco/nicotine user cigarettes Alcohol intake: former Substance/Drug Use: current Substance/Drug use frequency: daily Physical Exam Narrative: EXAM NARRATIVE: General: Alert, no acute distress. Skin: Warm, dry. Left lower extremity from about midway down the leg/ibrahim into the foot is erythematous edematous warm and tender to palpation Head: Normocephalic, atraumatic. Neck: Supple, trachea midline. Eye: Extraocular movements are intact. Ears, nose, mouth and throat: mucosa moist. Cardiovascular: Regular, Normal peripheral perfusion. Respiratory: Lungs are clear to auscultation, respirations are non-labored, breath sounds are equal, Symmetrical chest wall expansion. Gastrointestinal: Soft, Nontender, Non distended Musculoskeletal: Normal ROM, no deformity. Neurological: Alert and oriented, No focal neurological deficit observed. Psychiatric: Cooperative, appropriate mood & affect. Course Vital Signs: Vital signs: Vital Signs Temperature 99.2 F 12/08/24 16:43 Pulse Rate 82 12/08/24 16:43 Respiratory Rate 18 12/08/24 16:43 Blood Pressure 128/72 12/08/24 16:43 Pulse Oximetry 95 12/08/24 16:43 Oxygen Delivery Me thod Room Air 12/08/24 16:43 MDM - Extremity (Nontraumatic) Medical Decision Making Medical decision making: Differential diagnosis including but not limited to and based on the above HPI, review of systems and physical exam: Likely cellulitis but rule out blood clot. Orders placed to evaluate differential diagnosis based on the above differential, HPI and physical exam Lab Review: Laboratory results were reviewed and interpreted by myself the emergency room physician. No leukocytosis. No anemia. No renal failure. ESR is normal. CRP is mildly elevated. Ultrasound of lower extremity shows no DVT. This was reviewed and interpreted by myself the emergency room physician. I also reviewed the radiology report. I reviewed the patient's medical record. Reexamination: Patient remained stable. No increased work of breathing. No altered mental status. No focal motor deficits. Assessment and plan: Cellulitis ?IM Blank in the emergency room. Home on Keflex - Discharged home - Discussed plan with patient. Answered any questions. - Evaluation and treatment of this problem were appropriate in the emergency setting. Lab Data 12/08/24 17:38 12/08/24 17:38 Laboratory Results WBC 10.90 10^3/uL (3.29-11.43) 12/08/24 17:38 RBC 3.88 10^6/uL (3.85-5.65) 12/08/24 17:38 Hgb 12.70 g/dL (11.27-16.99) 12/08/24 17:38 Hct 38.1 % (37-53) 12/08/24 17:38 MCV 98.2 fl (82-101) 12/08/24 17:38 MCH 32.7 pg (27-33) 12/08/24 17:38 MCHC 33.3 g/dL (30-55) 12/08/24 17:38 RDW 13.5 % (12.1-15.1) 12/08/24 17:38 Plt Count 177 10^3/cmm (157-399) 12/08/24 17:38 MPV 11.0 fL (7.4-10.4) H 12/08/24 17:38 Neut % (Auto) 51.3 % 12/08/24 17:38 Lymph % (Auto) 36.1 % 12/08/24 17:38 [place] % (Auto) 9.0 % 12/08/24 17:38 Eos % (Auto) 2.7 % 12/08/24 17:38 Baso % (Auto) 0.6 % 12/08/24 17:38 Neut # (Auto) 5.60 10^3/uL (1.8-7.7) 12/08/24 17:38 Lymph # (Auto) 3.9 10^3/uL (0.8-4.8) 12/08/24 17:38 [place] # (Auto) 1.0 10^3/uL (0.2-0.9) H 12/08/24 17:38 Eos # (Auto) 0.3 10^3/uL (0.0-0.8) 12/08/24 17:38 Baso # (Auto) 0.1 10^3/uL (0.0-0.1) 12/08/24 17:38 Nucleated RBC % (auto) 0 % 12/08/24 17:38 Nucleated RBCs # 0.0 /100WBC 12/08/24 17:38 ESR 9 mm/hr (0-10) 12/08/24 17:38 Sodium 145 mmol/L (136-145) 12/08/24 17:38 Potassium 3.8 mmol/L (3.5-5.1) 12/08/24 17:38 Chloride 107 mmol/L (98-107) 12/08/24 17:38 Carbon Dioxide 25 mmol/L (22-29) 12/08/24 17:38 Anion Gap 16.8 (5-19) 12/08/24 17:38 BUN 12 mg/dL (8-23) 12/08/24 17:38 Creatinine 0.7 mg/dL (0.7-1.2) 12/08/24 17:38 GFR Calculation 114.3 mL/min (90-130) 12/08/24 17:38 Glucose 102 mg/dL (65-115) 12/08/24 17:38 Calculated Osmolality 300 mOsm/kg (285-295) H 12/08/24 17:38 Lactic Acid 1.2 mmol/L (0.5-2.2) 12/08/24 17:38 Calcium 8.8 mg/dL (8.5-10.5) 12/08/24 17:38 Total Bilirubin 0.4 mg/dL (0.15-1.2) 12/08/24 17:38 AST 11 U/L (0-40) 12/08/24 17:38 ALT 8 U/L (0-41) 12/08/24 17:38 Alkaline Phosphatase 80 U/L (40-130) 12/08/24 17:38 C-Reactive Protein 19.0 mg/L (0.0-4.9) H 12/08/24 17:38 Total Protein 6.4 g/dL (6.6-8.7) L 12/08/24 17:38 Albumin 3.7 g/dL (3.5-5.2) 12/08/24 17:38 Globulin 2.7 g/dL (1.3-4.6) 12/08/24 17:38 All radiology interpretation(s) finalized by discharge Discharge Plan Discharge Patient Disposition: Home Clinical Impression: Cellulitis Condition: Stable Prescriptions: New cephalexin 500 mg tablet 500 mg PO TID 10 Days Qty: 30 0RF No Action lisinopril 10 mg tablet 10 mg PO DAILY Qty: 90 3RF gabapentin 300 mg capsule 900 mg PO TID Qty: 270 3RF atorvastatin 20 mg tablet 20 mg PO DAILY Qty: 90 3RF tizanidine 4 mg capsule 4 mg PO BID PRN isosorbide mononitrate 30 mg tablet extended release 24 hr 30 mg PO DAILY Qty: 90 3RF nitroglycerin 0.4 mg tablet, sublingual 0.4 mg sublingual Q5M PRN (Reason: chest pain) Qty: 25 2RF Rx Instructions: do not exceed 3 doses per episode sennosides-docusate sodium [Senna with Docusate Sodium] 8.6-50 mg tablet 1 tab-cap PO BID Qty: 60 5RF prednisone 20 mg tablet 20 mg PO DAILY Qty: 15 0RF Rx Instructions: 60mg for three days, 40mg for two days, 20mg for two days escitalopram oxalate [Lexapro] 10 mg tablet 10 mg PO DAILY Qty: 90 1RF tamsulosin 0.4 mg capsule See Rx Instructions .ROUTE .COMPLEX Qty: 90 3RF Dose Instruction: TAKE 1 CAPSULE BY MOUTH DAILY Rx Instructions: TAKE 1 CAPSULE BY MOUTH DAILY pantoprazole 40 mg tablet,delayed release (DR/EC) See Rx Instructions .ROUTE .COMPLEX Qty: 90 3RF Dose Instruction: TAKE 1 TABLET BY MOUTH DAILY Rx Instructions: TAKE 1 TABLET BY MOUTH DAILY verapamil 180 mg tablet extended release See Rx Instructions .ROUTE .COMPLEX Qty: 90 3RF Dose Instruction: TAKE 1 TABLET BY MOUTH DAILY Rx Instructions: TAKE 1 TABLET BY MOUTH DAILY albuterol sulfate 90 mcg/actuation HFA aerosol inhaler See Rx Instructions .ROUTE .COMPLEX Qty: 8.5 0RF Dose Instruction: USE 2 INHALATIONS BY MOUTH 4 TIMES DAILY NEEDED FOR SHORTNESS OF BREATH OR WHEEZING Rx Instructions: USE 2 INHALATIONS BY MOUTH 4 TIMES DAILY NEEDED FOR SHORTNESS OF BREATH OR WHEEZING ezetimibe 10 mg tablet 10 mg PO DAILY Qty: 90 3RF oxycodone 15 mg tablet 15 mg PO QID Discharge Orders: Discharge ED (Routine); Ordered 12/08/24 Ordered By: Tish Ogden Referrals: Rey Maria MD [Primary Care Provider, Family Practice] Discharge Diet: Usual diet Discharge Activity: Increase activity as tolerated Patient Instructions: Cellulitis (ED), Opioid Safety, Pain Management, Patient Portal & Bam Instructions Activity Restrictions/Additional Instructions: Thank you for choosing [facility] for your healthcare needs today. You have been screened and evaluated and felt safe for discharge. Health conditions do change or evolve sometimes and as such it is important that you follow up with your Primary Doctor to be re checked, 3-5 days is a general good time frame for follow up. You are always welcome to return to the ED for re assessment if your symptoms are worsening or you have new concerns Print Language: Kosovan Coding Level of Care Code ED [facility] Specialist for Sixto Rivera
[2024-12-08 17:52] LABS: Hematocrit 38.1 % (37-53); Hemoglobin 12.70 g/dL (11.27-16.99); Mean Corpuscular HGB Conc 33.3 g/dL (30-55); Mean Corpuscular Hemoglobin 32.7 pg (27-33); Mean Corpuscular Volume 98.2 fl (82-101); Nucleated Red Blood Cells % 0 %; Platelet Count 177 10^3/cmm (157-399); Red Blood Count 3.88 10^6/uL (3.85-5.65); White Blood Count 10.90 10^3/uL (3.29-11.43)
[2024-12-08 18:05] LABS: Alanine Aminotransferase 8 U/L (0-41); Albumin Level 3.7 g/dL (3.5-5.2); Alkaline Phosphatase 80 U/L (40-130); Anion Gap 16.8 (5-19); Aspartate Amino Transferase 11 U/L (0-40); Blood Urea Nitrogen 12 mg/dL (8-23); Calcium 8.8 mg/dL (8.5-10.5); Carbon Dioxide 25 mmol/L (22-29); Chloride 107 mmol/L (98-107); Creatinine Clr Calc Pharmacy 101.0858; Globulin 2.7 g/dL (1.3-4.6); Glucose 102 mg/dL (65-115); Lactic Sepsis W/Reflex 1.2 mmol/L (0.5-2.2); Osmolality Calculated 300 mOsm/kg (285-295); Potassium 3.8 mmol/L (3.5-5.1); Sodium 145 mmol/L (136-145); Total Protein 6.4 g/dL (6.6-8.7)
[2024-12-08] MEDS: cefTRIAXone 1,000 mg SDV 1000 MG IVP (18:41)
== END 2024-12-08 18:58 | disposition home or self-care (01) ==
PROVIDERS: Emergency Provider Emergency Medicine; PCP Family Medicine
DX: L03.116 Cellulitis of left lower limb (principal); I25.10 Atherosclerotic heart disease of native coronary artery without angina pectoris; F17.210 Nicotine dependence, cigarettes, uncomplicated; E78.2 Mixed hyperlipidemia
CPT/HCPCS: 36415; 80053; 83605; 85025; 85651; 86140; 93005; 93971; 96374; 99284; J0696

== ENCOUNTER 2025-02-28 12:59 | Outpatient (CLI) | payer MEDICARE, SELFPAY ==
--- NOTE | 2025-02-28 13:09 | MM_ITS ---
WS: [email or web address] VIEWS: MLO, CC, and ML views both breasts. 3D digital tomosynthesis is also included in this exam. No priors Diffusely increased parenchymal density seen in the LEFT retroareolar area may represent gynecomastia. There is no discrete mass or tumor calcification identified in either breast otherwise. The RIGHT breast is normal in appearance. Regional ultrasound of the retroareolar area of the LEFT breast would be indicated for further work-up of this patient. MM/MM diag BI tomosynthesis [id number] Impression: BI-RADS: 0 - Incomplete: Need additional imaging evaluation FOLLOW-UP: See Report This mammogram was also analyzed by the Computer Aided Detection System R2 Imag e Pan Puller.
--- NOTE | 2025-02-28 13:10 | US_ITS ---
WS: [email or web address] Exam: US breast LT limited* [id number] Date/Time of Exam: 02/28/2025 1:45 PM Reason For Exam: L BREAST MASS Regional ultrasound of the retroareolar area of the LEFT breast is performed. Comparison images of the RIGHT breast were also included in the exam. Geographic hypodensity identified in the LEFT retroareolar area has the appearance of gynecomastia. No suspicious solid mass or nodule is identified otherwise. There were no findings in the retroareolar area of the RIGHT breast. US/US breast LT limited* [id number] IMPRESSION: 1. Ultrasound findings of gynecomastia in the LEFT retroareolar area as noted a latisha.
== END 2025-02-28 13:00 | disposition home or self-care (01) ==
PROVIDERS: PCP Family Medicine; Visit Provider Family Medicine
DX: N63.42 Unspecified lump in left breast, subareolar (principal)
CPT/HCPCS: 76642; 77062; G0279

== ENCOUNTER 2025-04-10 02:44 | Inpatient (IN) | payer MEDICARE, SELFPAY ==
--- OUTSIDE RECORDS SUMMARY | 2015-10-12 06:48 | XMS_ITS | Continuity of Care Document ---
Author Organization [facility] Address [address] [place] [address] Phone Care Team Providers Care Sociology Faculty Member Name Role Phone Unavailable Unavailable Unavailable Medications Medication Instructions Dosage Effective Dates (start - stop) Status Comments montelukast 10 mg tablet take 1 tablet by oral route every day in the evening 10 MG - Active ProAir HFA 90 mcg/actuation aerosol inhaler inhale 2 puff by inhalation route every 4 - 6 hours as needed - Active azithromycin 500 mg tablet take 1 tablet by oral route every day for 5 days - No Longer Active Procedures Procedure Date Offic/outpt E&m [facility] 2 16 Methylprednisolone Acetate 80 Mg 2015 Dexamethasone Na Phosphate 1 Mg 016 Therapeutic, Prophylactic, Or Diagnostic Inj Sub Q Offic/outpt E&m [facility] 6 Advance Directives Directive Yes / No Effective Date File Name No Information Encounters Encounter Description Practice Location Reason(s) For Visit Diagnoses Date Provider Providers Copied on Encounter [facility], [address], [place], [place], [id number] , tel:+ [phone] [facility] No Information 6 No Information Offic/outpt E&m [facility] 2 [facility], [address], [place], [place], [id number] , tel:+ [phone] [facility] cold symptoms (chief complaint) Acute upper respiratory infection, unspecifiedAller gic rhinitis, unspecified 6 No Information Offic/outpt E&m [facility], [address], [place], [place], [id number] , [place] tel:+ [phone] [facility] cold symptoms (chief complaint) CAP (community acquired pneumonia)COPD exacerbationChro rios obstructive pulmonary disease w (acute) exacerbationNico kb dependence, cigarettes, uncomplicated Sep- 5-201 6 No Information Family History Family Member Type Diagnosis Age At Onset No Information Payers Payer name Insurance type Covered democrat ID Authorbjorngabrielle eastman(s) Xi [facility] [id number] Social History Type Description Quantity Date Captured Comments Sex Male Smoking Status No Information Chief Complaint And Reason For Visit No Information Reason For Referral Reason For Referral No Information History Of Present Illness Encounter Date Complaint History Of Prese nt Illness No Information Functional Status Date Functional Assessmen t No Information Instructions Date Instruction Additional Infor mation No Information Assessments Type Assessment Date No Information Patient Care Teams Name Effective Dates (start - stop) Status Members No Information
--- OUTSIDE RECORDS SUMMARY | 2015-10-12 06:48 | XMS_ITS | Continuity of Care Document ---
Author Organization [facility] Address [address] [place] [address] Phone Care Team Providers Care Mortgage Banker Name Role Phone Unavailable Unavailable Unavailable Medications [...] Longer Active Procedures Procedure Date Offic/outpt E&m [facility] 2 16 Methylprednisolone Acetate 80 Mg 2015 Dexamethasone Na Phosphate 1 Mg 016 Therapeutic, Prophylactic, Or Diagnostic Inj Sub Q Offic/outpt E&m [facility] 6 Advance Directives Directive Yes / No Effective Date File Name No Information Encounters Encounter Description Practice Location Reason(s) For Visit Diagnoses Date Provider Providers Copied on Encounter [facility], [address], [place], [place], [id number] , tel:+ [phone] [facility] No Information 6 No Information Offic/outpt E&m [facility] 2 [facility], [address], [place], [place], [id number] , tel:+ [phone] [facility] cold symptoms (chief complaint) Acute upper respiratory infection, unspecifiedAller gic rhinitis, unspecified 6 No Information Offic/outpt E&m [facility], [address], [place], [place], [id number] , [place] tel:+ [phone] [facility] cold symptoms (chief complaint) CAP (community acquired pneumonia)COPD exacerbationChro rios obstructive pulmonary disease w (acute) exacerbationNico kb dependence, cigarettes, uncomplicated Sep- 5-201 6 No Information Family History Family Member Type Diagnosis Age At Onset No Information Payers Payer name Insurance type Covered constitution party ID Authorbjorngabrielle eastman(s) Xi [facility] [id number] Social History Type Description Quantity Date Captured [...]
--- OUTSIDE RECORDS SUMMARY | 2025-03-31 07:40 | XMS_ITS ---
Author Organization 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 Name Role Phone Mata Lowry Primary Care Provider Carmen Deleon [phone] Allergies Allergen (clinical drug ingredient) Drug/Non Drug Allergy documented on EMR Reaction Allergy Type Onset Date Status IV DYE, IODINE CONTAINING (uncoded) Unknown Allergy Active Iodine Unknown Drug Allergy Active Iodinated contrast media (substance) Iodinated Diagnostic Agents Unknown Drug Allergy Active Results Component Value Reference Range Notes IPMA Saliva Drug Screen Reviewed date:04/05/2025 02:30:10 PM Interpretation: Performing Lab: Notes/Report: REASON FOR VISIT 2 month f/u Medications Medication SIG (Take, Route, Frequency, Duration) Notes Start Date End Date Status Benadryl 25 MG Capsule Take 50 mg Benadryl [address] Orally; Duration: 1 days Active Citalopram 10 MG Oral Tablet Citalopram 10 MG Oral Tablet 05/19/2018 Active diphenhydrAMINE HCl 50 MG Capsule 1 capsule 1 hour prior to appointment time Orally Once; Duration: 1 day Active Furosemide 20 MG Oral Tablet Furosemide 20 MG Oral Tablet 05/19/2018 Active Baclofen 20 MG Tablet 1 tablet as needed Orally 3 times a day; Duration: 30 days Fill 30 days from previous Rx 01/27/2025 Active Gabapentin 600 MG Tablet 1 tablet Orally 3 times a day; Duration: 30 days Fill 30 days from previous Rx 01/27/2025 Active oxyCODONE HCl 15 MG Tablet 1 tablet Orally every 4-6 hrs; Duration: 30 days As needed Not to exceed 4 per day Fill on 03/06/2025 01/27/2025 04/05/2025 Active Gabapentin 300 MG Capsule 1 capsule Orally three times a day; Duration: 30 days Fill 30 days from previous Rx 01/27/2025 Active Verapamil hydrochloride 180 MG Extended Release Tablet Verapamil hydrochloride 180 MG Extended Release Tablet 05/19/2018 Active Baclofen 20 MG Tablet 1 tablet with food or milk as needed Orally Three times a day; Duration: 30 days As needed 12/28/2024 Active Lisinopril 10 MG Oral Tablet Lisinopril 10 MG Oral Tablet 05/19/2018 Active pantoprazole 40 MG Enteric Coated Tablet pantoprazole 40 MG Enteric Coated Tablet 05/19/2018 Active Tamsulosin hydrochloride 0.4 MG Oral Capsule Tamsulosin hydrochloride 0.4 MG Oral Capsule 05/19/2018 Active Lovastatin 10 MG Oral Tablet Lovastatin 10 MG Oral Tablet 05/19/2018 Active Medrol 32 MG Tablet Take 1st dose Medrol 32 mg [address] Take 2nd dose of Medrol 2 hr prior. Take 50 mg Benadryl 1 hr prior Orally; Duration: 1 days 08/08/2020 Active Social History Tobacco Use: Social History Observation Description Date Details (start date - stop date) Current Smoker NA - NA Social History Depression Screening Social Info Question Answer Notes PHQ-9 Little interest or pleasure in doing thin gs Not at all Feeling down, depressed, or hopeless More than h jasper the days Trouble falling or staying asleep, [...] all Total Score 7 Interpretation Mild Depression Drugs/Alcohol: Social Info Question Answer Notes Alcohol Screen (Audit-C) Did you have a drink containing alcohol in the past year? No Points 0 Interpretation Negative Drugs Have you used drugs other than those for medical reasons in the past 12 months? No Tobacco Use: Social Info Question Answer Notes xTobacco Use/Smoking Are you a current smoker How many cigarettes a day do you smoke? 11-20 Additional Details Category Social Info Options Details Migrated Social History Migrated Social History Alcoholic beverages? - No, Currently on disability? - Yes, Drug or substance abuse? - No, I am interested in quitting. - Yes, Involved in any legal proceedings or lawsuits? - No, Marital Status - , Nonprescription drug use? - No, Participation in detoxification or rehabilitation - No, Smoking - 06/12 PPD, Smoking status (MU) - Current every day smoker, Working currently? 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 He continues with neck pain as well as lower back pain. He reports he feels like his back pain is getting worse but continues to defer any interventional procedures or updated imaging. He does state he is going to think about this so we will continue this dialogue at his next visit. He feels he is doing reasonably well on his current medication regimen. However, he did fall yesterday and is having some increased pain due to that but states it is not something he cannot handle. He denies any other changes in his health or any untoward side effects of the medication. I did discuss lifestyle modifications as well as a bowel regimen. He will continue his medication at present level and return to clinic in 2 months to monitor for treatment effectiveness and compliance. The patient continues with chronic pain requiring [...] effects are noted. Last UDS and [place] PRODUCT/DEVICE TECHNOLOGIST reviewed today. Patient is advised that best long-term goals include increased activity, core strengthening, proper weight management, coping strategies, avoidance of painful triggers, and targeted interventional therapy. We will see the patient for routine follow up in accordance with all clinic policies. We did remind patient today of current guidelines to decrease opioid when possible. We will continue to stress nonopioid treatment. RECOMMEND SALIVA TESTING TODAY Saliva drug screening will be performed today to ensure compliance with opioid therapy, as well as screen for any illicit or nonprescribed medications/drugs. Sample will be sent for quantitative analysis to test for all prescribed medications. Patient has been made aware of this policy and agrees to abide by our saliva testing policy. 03/31/2025 Neuropathy (ICD-10 - G62.9) 03/31/2025 Cervicalgia (ICD-10 - M54.2) 03/31/2025 Spondylolysis, cervical region (ICD-10 - M43.02) 03/31/2025 Lumbar radiculopathy (ICD-10 - M54.16) 03/31/2025 Traumatic arthropathy, left shoulder (ICD-10 - M12.512) 03/31/2025 Pain in right hip (ICD-10 - M25.551) 03/31/2025 Acquired right foot drop (ICD-10 - M21.371) 03/31/2025 Muscle spasm (ICD-10 - M62.838) 03/31/2025 Admission for long-term opiate analgesic use (ICD-10 - Z79.891) 03/31/2025 Depression screen (ICD-10 - Z13.31) Plan Of Treatment Treatment Notes Assessment Notes Chronic pain syndrome I had a nice discussion with the patient today regarding his chronic pain complaints. He continues with neck pain as well as lower back pain. He reports he feels like his back pain is getting worse but continues to defer any interventional procedures or updated imaging. He does state he is going to think about this so we will continue this dialogue at his next visit. He feels he is doing reasonably well on his current medication regimen. However, he did fall yesterday and is having some increased pain due to that but states it is not something he cannot handle. He denies any other changes in his health or any untoward side effects of the medication. I did discuss lifestyle modifications as well as a bowel regimen. He will continue his medication at present level and return to clinic in 2 months to monitor for treatment effectiveness and compliance. The patient continues with chronic pain requiring [...] effects are noted. Last UDS and [place] PRODUCT/DEVICE TECHNOLOGIST reviewed today. Patient is advised that best long-term goals include increased activity, core strengthening, proper weight management, coping strategies, avoidance of painful triggers, and targeted interventional therapy. We will see the patient for routine follow up in accordance with all clinic policies. We did remind patient today of current guidelines to decrease opioid when possible. We will continue to stress nonopioid treatment. RECOMMEND SALIVA TESTING TODAY Saliva drug screening will be performed today to ensure compliance with opioid therapy, as well as screen for any illicit or nonprescribed medications/drugs. Sample will be sent for quantitative analysis to test for all prescribed medications. Patient has been made aware of this policy and agrees to abide by our saliva testing policy. Next Appt Details Follow Up: 2 Months, Reason: Provider Name:Vanna Wagoner, 05/31/2025 01:00:00 PM, [address] [place], [phone], History and Physical Notes * HPI (History of Present Illness) Category Sub-Category Detail Notes Category Not es Provider Note Interventions: 10/27/24 Lumbar epidural steroid injection Pertinent Imaging: None at this time 03/31/2025 The patient presents today for 2-month follow-up. He continues with oxycodone 15 mg 4/day, gabapentin 900 mg 3 times a day and baclofen 20 mg 3 times a day. Last UDS is consistent. PDMP was reviewed and found to be compliant with care. Pill count is accurate today. UDS at [id number] today is consistent. We will send to lab for reference and review results with patient at next visit. Original HPI (Dr. Segal's patient): Mr. Wagner presents to clinic today for a 1 month follow-up evaluation effectiveness of continuation of previously stable medical management and to monitor for ongoing compliance. Patient presented at his last clinic visit with complaint of acute disabling increase in back pain. Patient notes he had recent minor trauma with marked onset of increased lower back pain. Patient sought initial evaluation at the emergency department in [place] reportedly received plain film x-rays as well as MRI study and has been seen by Dr. Allen spinal surgeon who recommended conservative therapy. Patient continues to struggle after the loss his on whom he was highly dependent. 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 At last clinic visit patient was placed on a short-term trial of increasing oxycodone 15 mg every 4 hours as needed not to exceed 6 tablets/day, with continuation of gabapentin 900 mg 3 times daily and tizanidine 4 mg 3 times daily. Patient returns today stating that this was significantly beneficial and also stating that as per previous agreement he agrees to at this time return to previous medication use levels limiting the oxycodone to no more than 4 tablets/day. X-ray studies were obtained from the [facility] noting no indications for kyphoplasty. Patient notes at this time his primary complaint is in his lower back extending into his right buttocks and down the right lower extremity. Examination notes tenderness overlying the SI joint. Discussed with patient proceeding with diagnostic/therapeutic LESI and right SI injection. Otherwise patient notes no significant change in his overall medical condition, and his underlying complaints, or in his response to medication management. And as noted before prior regimen had been effective up till recent acute exacerbation. Patient's information from the [place] and the [facility] prescription monitoring program remain consistent with current therapy. UDS from most recent clinic visit was confirmed as consistent after review by reference lab noting only currently prescribed medications and appropriate metabolites. UDS at point of service testing today is again noted to be consistent with current therapy. Patient will continue current medications at present level and will return to clinic in 1 month to evaluate response to resumed trial of previously stable medical management regimen and to review response to plan therapeutic LESI and right SI injection. Previously noted: After a significant delay radiographic studies from [facility] were obtained. Noted is plain film x-rays of patient's LS spine. Noted is evidence of T11-T12 compression deformity noted is similar to a prior examination and evidence of moderate degenerative disc disease at L4-5. After this study on September 13 patient proceeded to repeat films on September 21 noting the stable T11-T12 compression fractures with no evidence of lumbar compression fracture degenerative narrowing is again noted but no acute change. Thoracic studies obtained noted similar findings. Also reviewed with patient updated MRI study from September 20 of patient's lumbar spine noting chronic compression of the anterior wedging of T11 and T12, no acute compression fractures, shallow left paracentral disc protrusion at L4-5 impinging upon the left L5 nerve root in the subarticular recess. Mild left L4-5 foraminal narrowing and left foraminal protrusion was also noted. Disc bulging is also evident at L5-S1 slightly impinging on the left S1 nerve root. Subarticular recess narrowing is also evident bilaterally at L2-3 and at L3-4. After the studies became available telephone contact was made with Mr. Wagner indicating no current indication for vertebroplasty or kyphoplasty. Pain Details Pain Location Neck,Headaches,L eft Arm,Right Arm,Mid-Back,Left Shoulder,Right Shoulder,Left Knee,Right Knee,Lower Back,Left Leg,Right Leg,Left Foot Quality Sharp/Stabbing,Dull/ Ache,Pins/Gypsy,Burn/Tingle,Numb Severity of pain at its worst 10 Severity of pain at its best 7 Severity of average pain 8 Severity of pain right now 9 Severity of pain on medication 8 When did you last take your pain medicine 10:00 Medication Details Do you have a lock b ox or safe place for medication away from minors and/or others? Yes Do you have any leftover pain medication building up at your house? No Do you understand that pain medication c an be addicting and can cause overdose? Yes Do you feel you can REDUCE the amount of medication you take today? No Opioid Assessment Tools Pill Count 24 Last Urine Drug Screen 01/27/2025 Today's Rapid Urine Drug Screen 03/31/20 25 saliva [place] Prescription Monitoring Program [place] PDMP, found to be consistent with treatment history, reviewed today Treatment History Test undergone in the past ___ Past medication you have taken Oxycodone 15 mg #120Baclofren 20 mg #90Gabentin 300 mg TID Treatments you have had 10/27/2024 LESI Examination Category Sub-Category Detail Notes Category Not es General Examination General patient is w ell developed, well-nourished, alert and oriented, has good hygiene ENT oral mucosa moist an d pink Eyes pupils are equal, ro und and reactive to light, sclera/conjuctiva normal Respiratory breath sounds are eq ual bilaterally, there is no wheezing Cervical Spine Palpation of Cervical Spine stiff, tend er Lumbar Spine Palpation of Lumbar Spine reveal s hyperextension of lumbar spine and bilateral palpitation of lumbar facets reproduces back pain Palpation of Lumbar Intervertebral Space (Discs) there is no pain noted Bilateral Palpation of Sacroiliac Joint reveals no pain Palpation of Greater Trochanteric Bursa reveals no tenderness on both sides Musculoskeletal - Low Back Muscles Trigger Point s no palpable trigger points are noted Gaenslen's Test Negative Neurological Mental Status awake, oriented to person, oriented to place, oriented to time, memory intact, mood and affect are normal Coordination Gait walker Progress Notes * Ang WAGNERDOB:[birth year] (64 yo M)Acc No.[id number]:03/31/2025 Progress Notes Patient: Ang Britton Provider: BRIANNE Hale :1960 A ge:64 Y S ex:Male Date:03/31/2025 Address:[address] [place], [place] [id number] Pcp:Mata Lowry Check 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 Quality S harp/Stabbing,Dull/Ache,Pins/Gypsy,Burn/Tingle,Numb. Severity of pain at its worst 1 0. Severity of pain at its best 7 . Severity of pain on medication 8 . Severity of average pain 8 . Severity of pain right now 9 . When did you last take your pain medicine 1 0:00. M edication Details: Do you have a lock box or safe place for medication away from minors and/or others? Y es. Do you have any leftover pain medication building up at your house? N o. Do you understand that pain medication can be addicting and can cause overdose? Y es. Do you feel you can REDUCE the amount of medication you take today? N o. O pioid Assessment Tools: Pill Count 2 4. Last Urine Drug Screen 0 01/27/2025. Today's Rapid Urine Drug Screen 1 saliva. [place] Prescription Monitoring Program [place], found to be consistent with treatment history, reviewed today. T reatment History: Test undergone in the past _ __. Past medication you have taken O xycodone 15 mg #120 B aclofren 20 mg #90 G abentin 300 mg TID. Treatments you have had 0 10/27/2024 LESI. Ilsa mandujano Note: Patient presents today to establish care. - - - - - - - - - - - - - - - - - - - - - - - - - - - - - - - - - - - - - - - - - Consent for chronic opioid therapy/clinic policies: BEN: SOAPP-R: Physical Therapy: yes, dates: Bowel/bladder incontinence - d enies - - - - - - - - - - - - - - - - - - - - - - - - - - - - - - - - - - - - - - - - -. Interventions: 10/27/24 Lumbar epidural steroid injection Pertinent Imaging: None at this time 03/31/2025 The patient presents today for 2-month follow-up. He continues with oxycodone 15 mg 4/day, gabapentin 900 mg 3 times a day and baclofen 20 mg 3 times a day. L ast UDS is consistent. PDMP was reviewed and found to be compliant with care. Pill count is accurate today. UDS at [id number] today is consistent. We will send to lab for reference and review results with patient at next visit. Original HPI (Dr. Segal's patient): Mr. Wagner presents to clinic today for a 1 month follow-up evaluation effectiveness of continuation of previously stable medical management and to monitor for ongoing compliance. Patient presented at his last clinic visit with complaint of acute disabling increase in back pain.? Patient notes he had recent minor trauma with marked onset of increased lower back pain. Patient sought initial evaluation at the emergency department in [place] reportedly received plain film x-rays as well as MRI study and has been seen by Dr. Allen spinal surgeon who recommended conservative therapy. Patient continues to struggle after the l oss his on whom he was highly dependent. 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 At last clinic visit patient was placed on a short-term trial of increasing oxycodone 15 mg every 4 hours as needed not to exceed 6 tablets/day, with continuation of gabapentin 900 mg 3 times daily and tizanidine 4 mg 3 times daily. Patient returns today stating that this was significantly beneficial and also stating that as per previous agreement he agrees to at this time return to previous medication use levels limiting the oxycodone to no more than 4 tablets/day. X-ray studies were obtained from the [facility] noting no indications for kyphoplasty.? Patient notes at this time his primary complaint is in his lower back extending into his right buttocks and down the right lower extremity. Examination notes tenderness overlying the SI joint. Discussed with patient proceeding with diagnostic/therapeutic LESI and right SI injection. Otherwise patient notes no significant change in his overall medical condition, and his underlying complaints, or in his response to medication management. And as noted before prior regimen had been effective up till recent acute exacerbation. Patient's information from the [place] and the [facility] prescription monitoring program remain consistent with current therapy. UDS from most recent clinic visit was confirmed as consistent after review by reference lab noting only currently prescribed medications and appropriate metabolites. UDS at point of service testing today is again noted to be consistent with current therapy. Patient will continue current medications at present level and will return to clinic in 1 month to evaluate response to resumed trial of previously stable medical management regimen and to review response to plan therapeutic LESI and right SI injection. Previously noted: After a significant delay radiographic studies from [facility] were obtained. Noted is plain film x-rays of patient's LS spine. Noted is evidence of T11-T12 compression deformity noted is similar to a prior examination and evidence of moderate degenerative disc disease at L4-5. After this study on September 13 patient proceeded to repeat films on September 21 noting the stable T11-T12 compression fractures with no evidence of lumbar compression fracture degenerative narrowing is again noted but no acute change. Thoracic studies obtained noted similar findings. Also reviewed with patient updated MRI study from September 20 of patient's lumbar spine noting chronic compression of the anterior wedging of T11 and T12, no acute compression fractures, shallow left paracentral disc protrusion at L4-5 impinging upon the left L5 nerve root in the subarticular recess.? Mild left L4-5 foraminal narrowing and left foraminal protrusion was also noted. Disc bulging is also evident at L5-S1 slightly impinging on the left S1 nerve root. Subarticular recess narrowing is also evident bilaterally at L2-3 and at L3-4. After the studies became available telephone contact was made with Mr. Wagner indicating no current indication for vertebroplasty or kyphoplasty. * ROS: G eneral/Constitutional: Fatigue/Tiredness R eports. F ever D enies. R ecent weight gain R eports. R ecent weight loss D enies. R espiratory: Cough D enies. W heezing D enies. S hortness of breath D enies. G astrointestinal: Abdominal pain D enies. C onstipation D enies. N ausea D enies. V omiting D enies. P sychiatric: Anxiety D enies. D epression D enies. S uicidal thoughts D enies. P anic Attacks D enies. * Screening: * COMM - Current Opioid Misuse Measure: D ocumented By: Brenda Huizar core: 1?Interpretation: Score indicates low risk of abuse behaviors C OMM - Current Opioid Misuse Measure How often have you had trouble with thinking clearly or had memory problems?NeverHow often do people complain that you are not completing necessary tasks? (i.e., doing things that need to be done, such as going to class, work or appointments)NeverHow often have you had to go to someone other than your prescribing physician to get sufficient pain relief from medications? (i.e., another doctor, the Emergency Room, friends, street sources)NeverHow often have you taken your medications differently from how they are prescribed?NeverHow often have you seriously thought about hurting yourself?NeverHow much of your time was spent thinking about opioid medications (having enough, taking them, dosing schedule, etc.)?NeverHow often have you been in an argument?NeverHow often have you had trouble controlling your anger (e.g., road rage, screaming, etc.)?NeverHow often have you needed to take pain medications belonging to someone else?NeverHow often have you been worried about how you're handling your medications?NeverHow often have others been worried about how you're handling your medications?NeverHow often have you had to make an emergency phone call or show up at the clinic without an appointment?NeverHow often have you gotten angry with people?SeldomHow often have you had to take more of your medication than prescribed?NeverHow often have you borrowed pain medication from someone else?NeverHow often have you used your pain medicine for symptoms other than for pain (e.g., to help you sleep, improve your mood, or relieve stress)?NeverHow often have you had to visit the Emergency Room?Never * Medical History: Problem:Abdominal aortic aneurysm (disorder) , Status :: Active Problem:Anxiety (finding) , Status :: Active Problem:Coronary arteriosclerosis (disorder) , Status :: Active Problem:Disorder of liver (disorder) , Status :: Active Problem:History of endovascular stent graft for repair of abdominal aortic aneurysm (situation) , Status :: Active Problem:Ischemic disorder of spinal cord (disorder) , Status :: Active Problem:Nicotine dependence (disorder) , Status :: Active Problem:Paralysis (finding) , Status :: Active Problem:Paraplegia (disorder) , Status :: Active Measles Mumps Chicken Pox Pneumonia Arthritis Migraine Back Trouble HBP Bronchitis Stroke CAD Depression Fatty Liver AAA Adrenal Gland Aneurysm Medical History Verified * Surgical History: abdominal aortic aneurysm repair Rhizotomy 05/2000 Rhizotomy 04/2000 Right Knee 2010 Left Knee 2009 Spinal Tap 06/2020 AAA Knee Surgery Surgical History verified. * Hospitalization/Major Diagno stic Procedure: Gabapentin Withdrawal 06/2020 AAA / 07/2017 AAA Sx 2017 Hospitalization Verified. * Family History: F ather: diabetes, heart disease. M other: copd, heart disease, brain aneurysm,. M igrated Family History: : chronic pain. F amily History Verified.. Patient Refused. * Social History: T obacco Use: x Tobacco Use/Smoking A re you a c urrent smoker H ow many cigarettes a day do you smoke? 1 1-20 D rugs/Alcohol: D rugs H ave you used drugs other than those for medical reasons in the past 12 months? N o Alcohol Screen (Audit-C) D id you have a drink containing alcohol in the past year? N o P oints 0 I nterpretation N egative D epression Screening: P HQ-9 L ittle interest or pleasure in doing things?Not at all F eeling down, depressed, or hopeless M ore than half the days T rouble falling or staying asleep, or sleeping too much S everal days F eeling tired or having little energy M ore than half the days P oor appetite or overeating S everal days F eeling bad about yourself, or that you are a failure, or have let yourself or your family down N ot at all T rouble concentrating on things, such as reading the newspaper or watching television S everal days M oving or speaking so slowly that other people could have noticed. Or the opposite ? being so fidgety or restless that you have been moving around a lot more than usual N ot at all T houghts that you would be better off , or of hurting yourself in some way N ot at all T otal Score 7 I nterpretation M ild Depression z zMigrated Social History: M igrated Social History: Smoking Status:Smokes tobacco daily (finding). M igrated Social History: M igrated Social History: Alcoholic beverages? - No, C urrently on disability? - Yes, D rug or substance abuse? - No, I am interested in quitting. - Yes, I nvolved in any legal proceedings or lawsuits? - No, M arital Status - , N onprescription drug use? - No, P articipation in detoxification or rehabilitation - No, S moking - 1/4 PPD, S moking status (MU) - Current every day smoker, W orking currently? - No. S ocial History Verified. * Medications: T akingBaclofen 20 MG Tablet 1 tablet with food or milk as needed Orally Three times a day As neededBaclofen 20 MG Tablet 1 tablet as needed Orally 3 times a day , Notes to Pharmacist: Fill 30 days from previous RxBenadryl 25 MG Capsule Take 50 mg Benadryl [address] Orally Citalopram 10 MG Oral Tablet , Notes to Pharmacist: Citalopram 10 MG Oral TabletdiphenhydrAMINE HCl 50 MG Capsule 1 capsule 1 hour prior to appointment time Orally Once Furosemide 20 MG Oral Tablet , Notes to Pharmacist: Furosemide 20 MG Oral TabletGabapentin 300 MG Capsule 1 capsule Orally three times a day , Notes to Pharmacist: Fill 30 days from previous RxGabapentin 600 MG Tablet 1 tablet Orally 3 times a day , Notes to Pharmacist: Fill 30 days from previous RxLisinopril 10 MG Oral Tablet , Notes to Pharmacist: Lisinopril 10 MG Oral TabletLovastatin 10 MG Oral Tablet , Notes to Pharmacist: Lovastatin 10 MG Oral TabletMedrol 32 MG Tablet Take 1st dose Medrol 32 mg [address] Take 2nd dose of Medrol 2 hr prior. Take 50 mg Benadryl 1 hr prior Orally oxyCODONE HCl 15 MG Tablet 1 tablet Orally every 4-6 hrs As needed Not to exceed 4 per day, stop date 04/05/2025, Notes to Pharmacist: Fill on 03/06/2025pantoprazole 40 MG Enteric Coated Tablet , Notes to Pharmacist: pantoprazole 40 MG Enteric Coated TabletTamsulosin hydrochloride 0.4 MG Oral Capsule , Notes to Pharmacist: Tamsulosin hydrochloride 0.4 MG Oral CapsuleVerapamil hydrochloride 180 MG Extended Release Tablet , Notes to Pharmacist: Verapamil hydrochloride 180 MG Extended Release TabletMedication List reviewed and reconciled with the patientTaking Baclofen 20 MG Tablet 1 tablet with food or milk as needed Orally Three times a day As neededTaking Baclofen 20 MG Tablet 1 tablet as needed Orally 3 times a day , Notes to Pharmacist: Fill 30 days from previous RxTaking Benadryl 25 MG Capsule Take 50 mg Benadryl [address] Orally Taking Citalopram 10 MG Oral Tablet , Notes to Pharmacist: Citalopram 10 MG Oral TabletTaking diphenhydrAMINE HCl 50 MG Capsule 1 capsule 1 hour prior to appointment time Orally Once Taking Furosemide 20 MG Oral Tablet , Notes to Pharmacist: Furosemide 20 MG Oral TabletTaking Gabapentin 300 MG Capsule 1 capsule Orally three times a day , Notes to Pharmacist: Fill 30 days from previous RxTaking Gabapentin 600 MG Tablet 1 tablet Orally 3 times a day , Notes to Pharmacist: Fill 30 days from previous RxTaking Lisinopril 10 MG Oral Tablet , Notes to Pharmacist: Lisinopril 10 MG Oral TabletTaking Lovastatin 10 MG Oral Tablet , Notes to Pharmacist: Lovastatin 10 MG Oral TabletTaking Medrol 32 MG Tablet Take 1st dose Medrol 32 mg [address] Take 2nd dose of Medrol 2 hr prior. Take 50 mg Benadryl 1 hr prior Orally Taking oxyCODONE HCl 15 MG Tablet 1 tablet Orally every 4-6 hrs As needed Not to exceed 4 per day, stop date 04/05/2025, Notes to Pharmacist: Fill on 03/06/2025Taking pantoprazole 40 MG Enteric Coated Tablet , Notes to Pharmacist: pantoprazole 40 MG Enteric Coated TabletTaking Tamsulosin hydrochloride 0.4 MG Oral Capsule , Notes to Pharmacist: Tamsulosin hydrochloride 0.4 MG Oral CapsuleTaking Verapamil hydrochloride 180 MG Extended Release Tablet , Notes to Pharmacist: Verapamil hydrochloride 180 MG Extended Release TabletMedication List reviewed and reconciled with the patient * Allergies: I V DYE, IODINE CONTAINING: AllergyIodineIodinated Diagnostic AgentsyesAllergies Verified. Objective: * Vitals: H t: 73.00 in, Wt:150lbs, Wt-k.04 kg, BMI:19.79Index, Ht-cm: 185.42 cm. * P ast Orders: Lab:Tox Results * Collection Date 11/23/2024 09/23/2024 Order Date 11/23/2024 09/23/2024 * Examination: G eneral Examination: General p atient is well developed, well-nourished, alert and oriented, has good hygiene. ENT o ral mucosa moist and pink. Eyes p upils are equal, round and reactive to light, sclera/conjuctiva normal. Respiratory b reath sounds are equal bilaterally, there is no wheezing. L umbar Spine: Palpation of Lumbar Spine r eveals hyperextension of lumbar spine and bilateral palpitation of lumbar facets reproduces back pain. Palpation of Lumbar Intervertebral Space (Discs) t here is no pain noted. Bilateral Palpation of Sacroiliac Joint r eveals no pain.? Palpation of Greater Trochanteric Bursa r eveals no tenderness on both sides. M usculoskeletal - Low Back Muscles: Trigger Points n o palpable trigger points are noted. Gaenslen's Test N egative. C ervical Spine: Palpation of Cervical Spine s tiff, tender. ? N eurological: Mental Status a wake, oriented to person, oriented to place, oriented to time, memory intact, mood and affect are normal. C oordination: Gait w alker. Assessment: * Assessment: 1. C hronic pain syndrome - G89.4 (Primary) 2 . P araplegia, unspecified - G82.20 3 . N europathy - G62.9 4 . C ervicalgia - M54.2 5 . S pondylolysis, cervical region - M43.02 6 . L umbar radiculopathy - M54.16 7 . T raumatic arthropathy, left shoulder - M12.512 ?8. P ain in right hip - M25.551 9 . A cquired right foot drop - M21.371? 10. M uscle spasm - M62.838 1 1. A dmission for long-term opiate analgesic use - Z79.891 1 2. D epression screen - Z13.31 Plan: * Treatment: 2. A dmission for long-term opiate analgesic use L AB: IPMA Saliva Drug Screen (Collection Date & Time - 03/31/2025) * Follow Up: 2 Months Billing Information: * Visit Code: 60038 Office Visit, Est Pt., Level 4. * Procedure Codes: Care Plan Details* * Electronic signature of Destiney Corona APRN on 04/10/2025 at 02:49 AM TURF GROWER Sign off status: Pending * Provider: BRIANNE Hale Date: Generated for Enrico dick/Ariel/Robert on: 06/10/2024 02:49 AM TURF GROWER
[2025-04-10] VITALS (29 sets, daily range): BP systolic 115–186; BP diastolic 55–95; PULSE 54–96; RESP 11–24; TEMP 36.1–37.3; O2SAT 91–100; BMI 19.2
--- OUTSIDE RECORDS SUMMARY | 2025-04-10 02:49 | XMS_ITS | Clinical Summary ---
Author Organization [facility] Jose L cheung [place] Address [address] [place] [address] Phone Care Team Providers Care Regional Engagement Consultant Name Role Phone Rajesh Soria MD Primary Care Provider [phone] Allergies Active Allergy Reactions Criticality Noted Date [...] Encounters Date Type Department Care Team Description 03/30/2025 External Device Data [facility] ABSTRACTION Provider, Abstract 03/15/2025 External Device Data [facility] ABSTRACTION Provider, Abstract 03/15/2025 External Device Data [facility] ABSTRACTION Provider, Abstract 02/15/2025 External Device Data [facility] ABSTRACTION Provider, Abstract 02/08/2025 External Device Data [facility] ABSTRACTION Provider, Abstract 01/25/2025 External Device Data [facility] ABSTRACTION Provider, Abstract 01/12/2025 External Device Data [facility] ABSTRACTION Provider, Abstract [...] Sex Assigned at Male 05/18/2024 5:16 PM SOCIAL PSYCHOLOGIST Legal Sex Male 10:06 AM CDT Gender Identity Male 05/18/2024 5:16 PM SOCIAL PSYCHOLOGIST Sexual Orientation Straight 05/18/2024 5: 16 PM SOCIAL PSYCHOLOGIST Last Filed Vital Signs Vital Sign Reading Time Taken Comments Blood Pressure 102/52 07/02/2024 1:46 PM SOCIAL PSYCHOLOGIST Pulse 71 07/02/2024 1:46 PM SOCIAL PSYCHOLOGIST Temperature 36.2 C (97.1 F) 05/31/2024 11:41 AM SOCIAL PSYCHOLOGIST Respiratory Rate 18 05/31/2024 11:41 AM SOCIAL PSYCHOLOGIST Oxygen Saturation 95% 07/02/2024 1:46 PM SOCIAL PSYCHOLOGIST Inhaled Oxygen Concentration - - Weight 68.9 kg (152 lb) 07/02/2024 1:46 PM SOCIAL PSYCHOLOGIST Height 185.4 cm (6' 1 ) 07/02/2024 1:46 PM SOCIAL PSYCHOLOGIST Body Mass Index 20.05 07/02/2024 1:46 PM SOCIAL PSYCHOLOGIST Plan of Treatment Health Maintenance Due Date [...] Flex Sig/CT Colonography Q 5 years 2007 RSV VACCINE (60+ or ) (1 - Risk 50-74 years 1-dose series) 2012 ZOSTER VACCINE (1 of 2) 2012 Medicare [place]) Prev entative Visit/Annual Wellness Visit 06/09/2024 05/25/2024 INFLUENZA VACCINE (#1) 2025 02/23/2024 Insurance [facility] [id number] [place] [id number] Care Teams Regional Engagement Consultant Relationship Specialty Start Date End Date Rajesh Soria MD [address] [place] [id number] PCP - General Family Practice 02/23/24
--- OUTSIDE RECORDS SUMMARY | 2025-04-10 02:49 | XMS_ITS | Data Portability ---
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 Plan of Treatment Reminders Order Date Submit Date Provider Last Modified By Organization Details Last Modified Time Details Appointments None recorded. Lab None recorded. Referral neurosurger y referral - Please contact pt to schedule apt for evaluation of lower extremity weakness, loss of bowel control 2017 018 ge Ramos MD, [address], [address], [place], [address], 8 17:48:50 Procedures lexiscan cardiolite stress test (PROC) - pt to be scheduled for EVAR 2016 017 [facility] (Outpatient Scheduling), [address], [place], [address], 7 16:25:09 Surgeries None recorded. Imaging CT, angiogram, abdomen + pelvis, w/wo contrast - f/u s/p EVAR. 2017 018 [facility] Centralized Scheduling, [address], [place], [address], 8 16:19:39 pulse volume recording 2016 017 abdon Not available 7 13:36:05 Medication Orders methylpredn isolone 32 mg tablet 2017 018 osvaldo zelayaDarlene [id number], [address] [place], [address], 8 10:46:04 Percocet 5 mg-325 mg tablet 2017 018 CHICHI [id number], [address] [place], [address], 2 09:06:38 Patient TargetsNo targets recorded. Patient Instructions Encounter Date Encounter Id Patient Instructions Last Modified By Organization Details Last Modified Time 05/20/2017 [id number] Smoking Cessation Not availab le 05/20/2017 10:00:15 Quitting Tobacco : Care Instructions Not available 05/20/2017 10:00:15 AAA Not available 2016 10:00:15 high blood pressure: care instructions Not available 05/20/2017 10:00:15 learning about high blood pressure Not available 05/20/2017 10:00:15 A healthy lifestyle: care instructions Not available 05/20/2017 10:36:34 Reason for Referral Neurosurgery Referral for Sp inal cord injury Lower extremity neuromotor compromise Please contact pt to schedule apt for evaluation of lower extremity weakness, loss of bowel control Referring Physician: Shayan Cervantes, Vascular Surgery, Encounter Date: 08/20/2017 Results Created Date Observation Date Name Description Value Unit Range Abnormal Flag Note LastModifiedBy Organization Detail LastModifiedTime 07/02/19 18 07/02/2017 outpa tient pre-o perat archie testi ng* blood type Not Available Not Heather ilable 07/03/2017 05:44:34 07/02/19 18 07/02/2017 outpa tient pre-o perat archie testi ng* UA normal Not Available Not Availa ble 07/03/2017 05:44:30 07/02/19 18 07/02/2017 outpa tient pre-o perat archie testi ng* CBC, BMP normal all labs withi n accep table limit s to proce ed with proc. arbrn Not Available [facility] [address], [place], [address], 07/03/2017 05:44:24 07/10/19 18 07/10/2017 hospi nolvia labs inpat lab trends Not Available [facility] [address], [place], [address], 07/16/2017 02:26:05 05/16/20 17 04/29/2017 US, abdom en No observ ation record ed. Not Available 05/16/2017 14:59:17 05/16/20 17 04/05/2017 US, duple x, carot id arter y No observ ation record ed. Not Available 05/16/2017 14:59:09 05/16/20 17 02/14/2017 CT, chest , w/ contr ast No observ ation record ed. Not Available 05/16/2017 14:59:47 05/16/20 17 04/06/2017 CT, clavi curly, w/o contr ast No observ ation record ed. Not Available 05/16/2017 15:01:10 05/16/20 17 04/06/2017 CT, clavi curly, w/o contr ast No observ ation record ed. Not Available 05/16/2017 15:02:02 05/16/20 17 02/02/2017 MRI, cervi elder spine , w/o contr ast No observ ation record ed. Not Available 05/16/2017 15:02:35 05/19/20 17 05/19/2017 CT, angio gram, chest + abdom en + pelvi s, w/wo contr ast No observ ation record ed. Not Available 2016 08:34:54 06/05/20 17 06/04/2017 joseph can cardi olite stres s test (PROC ) No observ ation record ed. [facility] [address] [place], [address], 06/20/2017 11:13:34 07/01/19 18 06/27/2017 MRI, lumba r spine , w/o contr ast No observ ation record ed. [email or web address] Not Available 08/07 16:35:45 07/02/19 18 07/01/2017 MRI, chest , w/o contr ast No observ ation record ed. [facility] Jorge L Ludwig MD [address] [facility] [address], [place], [address], 08/13/2017 12:37:04 07/09/19 18 07/09/2017 US, duple x, arter ial, lower extre mity No observ ation record ed. [email or web address] Not Available 2017 14:27:55 07/09/19 18 07/09/2017 US, duple x, arter ial, lower extre mity No observ ation record ed. [email or web address] Not Available 2017 14:27:54 07/14/19 18 07/14/2017 XR, abdom en No observ ation record ed. [email or web address] Not Available 2017 10:25:28 08/27/19 18 08/26/2017 CT, abdom en + pelvi s, w/o contr ast No observ ation record ed. [email or web address] [facility] [address], [place], [address], 10/17/2017 14:57:37 09/18/19 18 09/16/2017 MRI, lumba r spine , w/o contr ast No observ ation record ed. Not Available 09/17/2017 10:34:45 Result Notes None recorded. Problems Name Problem SNOMED Code Status Onset Date Resolution Date Notes Provider Name and Address Organization Details Recorded Time Swelling - edema - symptom Active 2011 Robbie schulz [facility] 8 10:42:41 Malaise and fatigue 037149220 Active 2011 Robbie schulz [facility] 8 10:42:41 Subluxation of sternoclavicul ar joint 552118564 Active 2016 Robbie schulz [facility] 8 10:42:41 Abdominal aortic aneurysm 660119502 Active 2016 Robbie schulz [facility] 8 10:42:41 Tobacco dependence syndrome 62959339 Active 2016 Robbie schulz [facility] 8 10:42:41 Leukocytosis 326000536 Active 2016 Robbie schulz [facility] 8 10:42:41 Problem Notes None recorded. Procedures Surgical History Date Name Laterality Status Provider Name and Address Organization Details Recorded Time 07/08/19 18 ABDOMINAL AORTIC ANEURYSM REPAIR, ENDOVASCULAR (SURG) completed Shayan Cervantes [facility] 08/20/2017 16:35:57 05/29/20 17 PVR completed Raffy Reynoso [facility] 06/18/2017 13:59:12 Imaging Results None recorded. Procedure Notes None recorded. Medical Equipment None Reported. Allergies Allergen ID Allergen Name Allergen Category Reaction Reaction Severity Criticality Documentation Date Start Date Code Code System Note Provider Name and Address Organization Details Recorded Time 48340 Product containin g penicilli n (product) medicatio n Not available Not available Not available 05/16/2017 16592 8001 SNOMED Robbie schulz [facility] 7 14:48:38 16859 Iodinated contrast media (substanc e) medicatio n Not available Not available Not available 08/20/2017 94411 2004 SNOMED Trang schulz [facility] 8 12:34:18 Medications Name Sig Start Date Stop Date Status Note LastModified by Organization Details LastModified Time Miralax 17 gram/dose oral powder Take by oral route as needed. 05/28 completed Not Available Not Available Not Available Colace 100 mg capsule Take 1 capsule every day by oral route. active Not Available Not Available No t Available Protonix 40 mg tablet,de layed release Take 1 tablet every day by oral route. 09/17 completed Not Available Not Available Not Available gabapenti n 600 mg tablet Take 1 tablet 3 times a day by oral route. active Not Available Not Available No t Available hydrocodo ne 5 mg-acetam inophen 325 mg tablet Take 1 tablet every 6 hours by oral route as needed. 05/28 completed Not Available Not Available Not Available lisinopri l 20 mg tablet Take 1 tablet every day by oral route. active Not Available Not Available No t Available methylpre dnisolone 32 mg tablet Take 1 tablet by oral route as directed . 09/17 completed Methlypr ednisolo ne 32 mg po 12 hours prior to procedur e and 32 mg po 2 hours prior to procedur e. Not Available Not Available Not Available verapamil ER (SR) 180 mg tablet,ex tended release Take 1 tablet every day by oral route in the morning. active Not Available Not Available No t Available Motrin IB 200 mg tablet Take 1 tablet every 6 hours by oral route as needed. active Not Available Not Available No t Available aspirin 81 mg tablet,de layed release Take 1 tablet every day by oral route. 09/17 completed Not Available Not Available Not Available amitripty line 50 mg tablet Take 1 tablet every day by oral route. active Not Available Not Available No t Available aspirin 325 mg tablet,de layed release Take 1 tablet every day by oral route. active Not Available Not Available No t Available tamsulosi n 0.4 mg capsule Take 1 capsule every day by oral route. active Not Available Not Available No t Available oxycodone 5 mg capsule Take 1 capsule every 4 hours by oral route as needed. active Not Available Not Available No t Available Percocet 5 mg-325 mg tablet Take 1 tablet every 6 hours by oral route as needed. 2017 active Not Available Not Available Not Avai lable naproxen 500 mg tablet Take 1 tablet twice a day by oral route. active Not Available Not Available No t Available Lexapro 10 mg tablet Take 1 tablet every day by oral route. active Not Available Not Available No t Available Flexeril 5 mg tablet Take 1 tablet 3 times a day by oral route as needed. active Not Available Not Available No t Available escitalop gabriel 5 mg tablet Take 1 tablet every day by oral route. 09/17 completed Not Available Not Available Not Available docusate sodium 09/17 completed Not Available Not Available Not Available oxycodone 09/17 completed Not Available Not Available Not Available aspirin 09/17 completed Not Available Not Available Not Available gabapenti n 09/17 completed Not Available Not Available Not Available Chantix 0.5 mg tablet Take 1 tablet twice a day by oral route as directed for 3 days. active Not Available Not Available No t Available cholecalc iferol (vitamin D3) 1,250 mcg (50,000 unit) capsule Take 1 capsule every week by oral route as directed . active For 12 weeks Not Available Not Available Not Available diclofena c 1 % gel topical kit 09/17 completed Not Available Not Available Not Available polyethyl priscila glycol 1000 09/17 completed Not Available Not Available Not Available Vitals Date Recorded Body height Body mass index (BMI) Body weight Heart rate Body temperature Systolic And Diastolic Provider Name and Address Organization Details Last Updated DateTime 8 190.5 cm 26.9 kg/m2 63917.3 6 g 78 /min 96.2 [degF] 120/69 mm[Hg] [facility] 12:31:03 Date Recorded Body weight Body mass index (BMI) Body height Body temperature Heart rate Systolic And Diastolic Provider Name and Address Organization Details Last Updated DateTime 7 41656.3 6 g 26.9 kg/m2 190.5 cm 98.7 [degF] 82 /min 122/81 mm[Hg] Robbie Emanuel [facility] 7 09:41:56 Social History Question Answer Notes LastModified by Organizat ion Details LastModified Time Tobacco Smoking Status Current Every Day Smoker Robbie Girard [facility] 05/16/2017 14:48:46 Do You Have An Advance Directive? No Information n ot available 05/16/2017 What Is Your Level Of Caffeine Consumption? Moderate Information not available 05/20/2017 Do You Have A Directive To Physicians? No Information not available 05/16/2017 What Is The Highest Grade Or Level Of School You Have Completed Or The Highest Degree You Have Received? [id number] Information not available 08/20/2017 How Many Days Of Moderate To Strenuous Exercise, Like A Brisk Walk, Did You Do In The Last 7 Days? 1 Information not available 08/20/2017 On Those Days That You Engage In Moderate To Strenuous Exercise, How Many Minutes, On Average, Do You Exercise? 1 Information not available 08/20/2017 How Hard Is It For You To Pay For The Very Basics Like Food, Housing, Medical Care, And Heating? [id number] Information not available 08/20/2017 Which Of Your Hands Is Dominant? Right Information n ot available 05/20/2017 Up To Date On Immunizations Yes Information not available 05/16/2017 Do You Drink Alcohol? Yes Information not available 05/16/2017 Do You Use Tobacco? Yes Information not available 05/16/2017 Do You Live Alone? No I nformation not available 05/16/2017 Do You Have A Medical Power Of Aircraft Layout Worker? No Information not available 05/16/2017 What Was The Date Of Your Most Recent Tobacco Screening? 08/20/2017 Information not available 12/30/2018 At What Age Did You Start Smoking Tobacco? 27 Information not available 09/17/2017 How Much Tobacco Do You Smoke? 0.5 PPD Information not available 09/17/2017 How Many Years Have You Smoked Tobacco? 30 Information not available 09/17/2017 Sex: Unknown Functional Status Question Answer Note LastModified by Organization D etails LastModified Time What is your exercise level? None Information not available 05/16/2017 Mental Status Question Answer Note LastModified by Organization D etails LastModified Time Do you feel stressed (tense, restless, nervous, or anxious, or unable to sleep at night)? [id number] Information not available 08/20/2017 Family History Relationship Description Onset Age of this Age Resolved Age Notes LastModified by Organization Details LastModified Time Mother Cerebrovascu lar accident aschuckenbroc k1 Not available 05/20/2017 09:36:15 Mother Aneurysm Brain aschuckenbroc k1 Not available 05/20/2017 09:35:51 Mother Family history of malignant neoplasm Breast aschuckenbroc k1 Not available 09/17/2017 10:40:08 Mother Diabetes mellitus aschuckenbroc k1 Not available 09/17/2017 10:40:13 Mother Heart disease aschuckenbroc k1 Not available 09/17/2017 10:40:18 Mother Migraine aschuckenbroc k1 Not available 09/17/2017 10:40:29 Mother Seizure aschuckenbroc k1 Not available 09/17/2017 10:40:38 Father Arthritis [place] Not avail able 06/20/2017 11:09:20 Maternal Grandfather Diabetes mellitus aschuckenbroc k1 Not available 09/17/2017 10:39:43 Maternal Grandfather Heart disease aschuckenbroc k1 Not available 09/17/2017 10:39:51 Maternal Grandmother Heart disease aschuckenbroc k1 Not available 09/17/2017 10:39:56 Medical History Condition Response HIV N Heart Problems N Thyroid Disease N Infectious Disease N Ear/nose/throat problems N Currently on a statin? N Heart Failure/CHF N Heart Attack/Myocardial infarction N Bleeding/Ulcer N Have you been treated for Cancer? or cur rently being treated? N Neurologic Y Varicose Veins N Diabetes N Musculoskeletal Y Psychological Y Pulmonary/lung issues Y Diagnosed or treated for any type of Ane urysms? Y Currently on Aspirin? Y Currently on Plavix? N Are you taking Coumadin or Warfarin? N Stroke/CVA/TIA N DVT/Blood Clot N Hepatitis A/B/C N High Cholesterol N Neuropathy Y Atherosclerotic Disease Y Hypertension Y Kidney Disease N Immunizations Vaccine Type Date Status Note Provider Nam e and Address Organization Details Recorded Time Tdap completed Robbiegabrielle schulz [place] - [facility] 09/17/2017 10:42:45 Past Encounters Encounter ID Performer Location Encounter Start Date Encounter Closed Date Diagnosis/Indication Diagnosis SNOMED-CT Code Diagnosis ICD10 Code Diagnosis IMO Codes Diagnosis Note [id number] Raffy Reynoso MD [place] [address],[facility] [address] [place] [address] 05/20/2017 09:24:12 05/20/2017 10:13:56 Abdominal aortic aneurysm 383121218 I71.4 The patient has had multiple family members dying of aneurysm. They've had the ascending thoracic aortic aneurysms and possibly abdominal aortic aneurysms. He is extremely nervous about his aneurysm.O n examinatio n his aneurysm is exquisitel y tender he about jumped off the table when I was palpating it.Because of this even though his aneurysm maximum diameter is 4.5 cm the tenderness is a indication for repairI have reviewed his CT scan and he has good anatomy for endovascul ar repair.Wer e going to have him get a preop cardiac stress test because of his smoking history and aneurysmal disease even though he's had no previous cardiac history.He has multiple symptoms including walking problems. We will check pulse wave recordings on him. He does have palpable posterior tibial but absent dorsalis pedis pulses bilaterall y. Also his pain comes on from the first step so I doubt that this will insole lip turner to be of an arterial etiology. Tobacco de pendence syndrome 51033875 F17.200 Recommende d tobacco cessation for overall health and to reduce your risk for heart attack and stroke, avoid all forms of tobacco as well as secondhand smoke. Smoking and exposure to secondhand smoke have many other effects on your cardiovasc ular and overall health. These effects include fatty buildups in arteries. Benign ess ential hypertension 8759461 I10 Continue to monitor blood pressure, lowers risk of heart attack, heart failure, stroke, peripheral artery disease and kidney disease. Recommend diet with salt reduction, regular physical activity, maintain healthy BMI, and continue to comply with medication prescripti ons. Intermitte nt claudication due to atherosclerosis of [place] artery of limb 8625956529 107 I70.213 [id number] Raffy Reynoso MD [place] [address] [place] [address] 05/29/2017 10:25:15 05/29/2017 11:28:55 Atherosclerosis of arteries of the extremities 68778740 I70.213 [id number] SHAYAN CERVANTES NP [place] [address] [place] [address] 08/20/2017 12:01:30 08/20/2017 13:01:51 Abdominal aortic aneurysm 735129288 I71.4 From a surgical standpoint , he is healing well and is well-perfu sed. He has palpable femoral and pedal pulses. Discussed the need for routine monitoring of the endograft with CT angiogram at 1-, 6-, and 12-months postoperat ively. We will pre-treat his contrast allergy with methylpred nisolone. He will follow up with Dr. Reynoso once this exam is completed. Spinal cord injury 10452 004 G95.89 He continues to experience significan t neuromotor compromise of the lower extremitie s. He has made some progress with rehab but feels discourage d at the lack of improvemen t. Discussed concerns with Dr. Reynoso. We will ask Dr. Ramos to evaluate him and make any further recommenda tions as well. He was provided a refill of Percocet today, but we discussed that his pain management is considered a chronic issue that will need to be addressed by his PCP in the future. Benign ess ential hypertension 1267150 I10 Blood pressure is well controlled today. He will continue on lisinopril and verapamil. Allergy to contrast media 541608044 T50.8X5A Health Concerns Section Related Observation LastModified by Organization Detai ls LastModified Time None Recorded Concern Status LastModified by Organization Details LastModified Time None Recorded Advance Directives Directive N: Payers Insurance Date Sequence Insurance Name Policy Number Policy Townsend Covered Member ID Townsend Member ID Guarantor Name 04/01/2018 1 KOBE [id number] Ang Yadav [id number] 1 Ang Yadav Notes Date Note Type Note Provider Name and Address Organization Details Recorded Time 05/20/2017 text/html Aneurysmal DiseaseReported by PatientHPIFor quality, patient reportsdull,constant, andpressure. For severity, patient reportsmoderate,pain level 4/10, andworst pain 8/10. For location, patient reportsabd(5cm). For onset, patient reports___ months. For context, patient reportstobacco use,alcohol use,family history aneurysm,arteritis, andhistory of anneurysmal disease(mother had an aneurysm). For alleviating factors, patient reportsrelieved by rest(laying down). For aggravating factors, patient reportsexercise. For prior imaging, patient reportscta(05/19/17 at [facility]). For previous surgery, (none).Patient complains of his legs being weak, aching, and giving out. Timi Pradhan RN, BSN zeus [facility] 05/26/2017 11:45:35 08/20/2017 text/html Post-Op VisitRep orted by PatientHPIFor onset/timing, patient reportsdate of surgery: (07/08/17). For quality, patient reportsprocedure: (evar).ROS as noted in the HPI 12 POINT ROS NEGATIVE EXCEPT WHAT IS NOTED IN THE HPI Shayan schulz [facility] 08/20/2017 17:10:09
--- NOTE | 2025-04-10 03:02 | CTR_ITS ---
PROCEDURE INFORMATION: Exam: CT Pelvis Without Contrast, Skeleton Exam date and time: 04/10/2025 4:16 AM Age: 64 years old Clinical indication: Injury or trauma; Blunt trauma (contusions or hematomas); Prior surgery; Surgery date: 6+ months; Surgery type: Aaa endograft; Ground level fall landing on left hip. ; Additional info: Fall posterior left hip pain TECHNIQUE: Imaging protocol: Computed tomography of the pelvis without contrast. Exam focused on the skeleton. Radiation optimization: All CT scans at this facility use at least one of these dose optimization techniques: automated exposure control; mA and/or kV adjustment per patient size (includes targeted exams where dose is matched to clinical indication); or iterative reconstruction. COMPARISON: CR XR hip RT 2-3V wo/w pel* [id number] 09/13/2024 7:20 PM RADIATION DOSE METRICS: Total DLP (mGy-cm): 314.38 FINDINGS: Vasculature: There is a partially imaged aorto bi-iliac stent graft, but the patency can not be assessed without IV contrast. Urinary bladder: The urinary bladder is normal in appearance. Bones/joints: There is a slightly angulated intertrochanteric fracture of the left hip. The left femoral neck is angulated superiorly relative to the left femoral shaft. Both acetabuli are intact. The bilateral superior and inferior pubic rami are intact. The sacrum is intact. There are chronic degenerative changes at L4-L5 and L5-S1 with disc space narrowing and mild bilateral neural foraminal stenoses. Soft tissues: Mild edema in the subcutaneous soft tissues overlying the left hip. Mild swelling of the musculature of the lateral left thigh. CT/CT bony pelvis [id number] IMPRESSION: 1. Slightly angulated intertrochanteric fracture of the left hip. 2. Constipation of the right hemicolon.
[2025-04-10] MEDS: morphine 4 mg/mL SDV 1 mL IVP ×2 (03:10→05:56)
[2025-04-10] MEDS: ondansetron 2 mg/ML SDV 2 mL 4 MG IVP (03:10)
--- NOTE | 2025-04-10 03:38 | XRR_ITS ---
PROCEDURE INFORMATION: Exam: XR Chest Exam date and time: 04/10/2025 3:39 AM Age: 64 years old Clinical indication: Injury or trauma; Blunt trauma (contusions or hematomas); Ground level fall with left hip fracture. Pre op for ortho. TECHNIQUE: Imaging protocol: Radiologic exam of the chest. Views: 1 view. COMPARISON: CR XR chest 1V portable [id number] 03/18/2022 7:06 PM FINDINGS: Lungs: The lungs appear hyperinflated with COPD changes. No acute pulmonary infiltrates identified. Pleural spaces: Unremarkable. No pleural effusion. No pneumothorax. Heart/Mediastinum: Unremarkable. No cardiomegaly. Bones/joints: No acute osseous lesions identified. The patient has known T11 and T12 compression fractures are grossly stable. Intraperitoneal space: Incidentally noted in the upper abdomen is the proximal portion of an aortic stent graft. XR/XR chest 1V portable [id number] IMPRESSION: Hyperinflated chest suggesting underlying COPD. No acute infiltrates identified.
[2025-04-10 03:48] LABS: Hematocrit 40.6 % (37-53); Hemoglobin 13.40 g/dL (11.27-16.99); Mean Corpuscular HGB Conc 33.0 g/dL (30-55); Mean Corpuscular Hemoglobin 31.3 pg (27-33); Mean Corpuscular Volume 94.9 fl (82-101); Nucleated Red Blood Cells % 0 %; Platelet Count 249 10^3/cmm (157-399); Red Blood Count 4.28 10^6/uL (3.85-5.65); White Blood Count 15.74 10^3/uL (3.29-11.43)
--- NOTE | 2025-04-10 03:51 | ECG_ITS ---
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 Measurements Intervals [place] Rate: 60 P: 63 MD: 166 QRS: 74 QRSD: 99 T: 64 QT: 410 QTc: 412 Interpretive Statements SINUS RHYTHM Compared to ECG 12/08/2024 17:23:50 NO SIGNIFICANT CHANGE Electronically Signed On 04-10-2025 14:12:11 SENIOR SYSTEMS ARCHITECT by Robbie Garrison M.D. [email or web address] [id number]
[2025-04-10 03:59] LABS: Alanine Aminotransferase 14 U/L (0-41); Albumin Level 4.1 g/dL (3.5-5.2); Alkaline Phosphatase 84 U/L (40-130); Anion Gap 13.3 (5-19); Aspartate Amino Transferase 16 U/L (0-40); Blood Urea Nitrogen 11 mg/dL (8-23); Calcium 9.1 mg/dL (8.5-10.5); Carbon Dioxide 28 mmol/L (22-29); Chloride 101 mmol/L (98-107); Creatinine Clr Calc Pharmacy 92.1361; Globulin 3.0 g/dL (1.3-4.6); Glucose 138 mg/dL (65-115); Osmolality Calculated 290 mOsm/kg (285-295); Potassium 3.3 mmol/L (3.5-5.1); Sodium 139 mmol/L (136-145); Total Protein 7.1 g/dL (6.6-8.7)
--- NOTE | 2025-04-10 04:00 | ED_ITS ---
HPI - Fall 2 General: Chief Complaint: Fall Stated Complaint: FALL Time Seen by Provider: 04/10/25 02:49 History of Present Illness: Patient is a 64-year-old male who presents to the emergency department following a fall outside his trailer while attempting to check a gas bottle. He reports significant left hip pain that began immediately after the fall. Patient describes the pain as localized to the left hip area, particularly at 'the very end of my leg' and reports a sensation of something being 'out of cup' with popping sensations. He notes pain with movement, especially when attempting to straighten the leg. Patient states this is his 'bad leg' and 'weakest leg' at baseline due to previous paraplegia. He managed to crawl back to his trailer over the course of an hour to call for help. He denies injury to other body parts. Patient lives alone with his dogs and reports his approximately one year ago. Related Data Home Medications ?Medication ?Instructions ?Recorded ?Confirmed oxycodone 15 mg tablet 15 mg PO QID 03/18/22 tizanidine 4 mg capsule 4 mg PO BID PRN 09/17/2403/03 Previous Rx's ?Medication ?Instructions ?Recorded albuterol sulfate 90 mcg/actuation See Rx Instructions .Route 01/05/25 aerosol inhaler .COMPLEX #8.5 grams atorvastatin 20 mg tablet 20 mg PO DAILY #90 tabs 12/09 ezetimibe 10 mg tablet 10 mg PO DAILY #90 tabs 12/09 gabapentin 300 mg capsule 900 mg (3 x 300 mg) PO TID # 270 01/05/25 caps isosorbide mononitrate 30 mg 30 mg PO DAILY #90 tabs 0 01/05/25 tablet,extended release 24 hr nitroglycerin 0.4 mg sublingual 0.4 mg sublingual Q5M PRN chest 01/05/25 tablet pain #25 tabs pantoprazole 40 mg tablet,delayed See Rx Instructions .Route 01/05/25 release .COMPLEX #90 tabs sennosides 8.6 mg-docusate sodium 1 tab-cap PO BID #60 tabs 01/05/25 50 mg tablet (Senna with Docusate Sodium) tamsulosin 0.4 mg capsule See Rx Instructions .Route 0 01/05/25 .COMPLEX #90 caps verapamil 180 mg tablet,extended See Rx Instructions . Route 01/05/25 release .COMPLEX #90 tabs escitalopram oxalate 20 mg tablet 20 mg PO DAILY #90 t abs 03/17/25 Allergies Allergy/AdvReac Type Severity Reaction Status Date / Time Iodinated Contrast Media Allergy Unknown Verified 01/24/25 14:13 [facility] ED 2 PFSH: Medical History Gynecomastia Compression fracture of spine Tobacco use disorder NAFLD (nonalcoholic fatty liver disease) Mixed dyslipidemia AAA (abdominal aortic aneurysm) s/p endovascular graft repair CAD (coronary artery disease) Essential hypertension Major depressive disorder PAD (peripheral artery disease) Spinal cord injury Social History Smoking and tobacco/nicotine status: current every day tobacco/nicotine user cigarettes Alcohol intake: former Substance/Drug Use: current Substance/Drug use frequency: daily Physical Exam 2 Const: COMMON NORMALS: no acute distress GENERAL APPEARANCE: cooperative; not frail appearing NUTRITIONAL APPEARANCE: thin O RIENTATION/CONSCIOUSNESS: Yes awake, Yes oriented to person, Yes oriented to place and Yes oriented to time; not confused HENMT: COMMON NORMALS: normocephalic, atraumatic and Normal external nose present HEAD & SCALP: normocephalic and atraumatic FACE & SINUS: normal facial exam and face symmetric NOSE: Normal external nose present Eye: COMMON NORMALS: Equal, round and reactive pupils present and EOMs intact bilaterally PUPIL: Yes Equal, round and reactive pupils present Neck/C-Spine: GENERAL: Yes trachea midline Chest: CHEST: Yes Symmetrical chest wall rise Resp: COMMON NORMALS: normal respiratory effort, No retractions, No use of accessory muscles and clear to auscultation bilaterally AUSCULTATION: clear to auscultation bilaterally Cardio: COMMON NORMALS: regular rate and regular rhythm RATE: regular rate RHYTHM: regular rhythm GI: COMMON NORMALS: Normal to inspection, nondistended, normoactive bowel sounds present Back/Pelvis: OTHER: Examination of the left hip reveals flexion deformity. There is tenderness palpation anteriorly and laterally as well as posteriorly of the hip. No pelvic tenderness. No significant lumbar spine tenderness or step-off. Extremity: COMMON NORMALS: no pedal edema Neuro: JABIER COMA SCALE: document GCS findings Leland coma scale eye opening: Spontaneous Jabier coma scale verbal response: Orientated Jabier coma scale motor response: Obey commands Jabier coma scale total score: 15 S ENSORIUM/ORIENTATION: Yes oriented to person, Yes oriented to place and Yes oriented to time SENSORY EXAM: Yes extremities (intact) Psych: COMMON NORMALS: speech normal SPEECH: Yes normal speech Skin: COMMON NORMALS: no rashes or lesions noted GENERAL SKIN EXAM: no rashes or lesions noted Course 2 Vital Signs: Vital signs: Vital Signs Temperature 99.1 F 04/10/25 02:43 Pulse Rate 66 04/10/25 04:14 Respiratory Rate 16 04/10/25 03:10 Blood Pressure 115/59 04/10/25 04:14 Pulse Oximetry 97 04/10/25 04:14 Oxygen Delivery Me thod Room Air 04/10/25 02:43 MDM - Fall Medical Decision Making 64-year-old male with intertrochanteric fracture of the left hip. Hanson was placed. Some labs are pending. He will be admitted. Creatinine is normal at 0.8. Potassium is 3.3, will be repleted. White blood cell count is 15.7, likely demargination from stress. Other laboratory not remarkable. Spoke with hospitalist. She will see the patient. Orthopedics will consult. He will go to the floor. Lab Data 04/10/25 02:49 04/10/25 02:49 Laboratory Results WBC 15.74 10^3/uL (3.29-11.43) H 04/10/25 02:49 RBC 4.28 10^6/uL (3.85-5.65) 04/10/25 02:49 Hgb 13.40 g/dL (11.27-16.99) 04/10/25 02:49 Hct 40.6 % (37-53) 04/10/25 02:49 MCV 94.9 fl (82-101) 04/10/25 02:49 MCH 31.3 pg (27-33) 04/10/25 02:49 MCHC 33.0 g/dL (30-55) 04/10/25 02:49 RDW 14.1 % (12.1-15.1) 04/10/25 02:49 Plt Count 249 10^3/cmm (157-399) 04/10/25 02:49 MPV 11.4 fL (7.4-10.4) H 04/10/25 02:49 Neut % (Auto) 65.1 % 04/10/25 02:49 Lymph % (Auto) 23.6 % 04/10/25 02:49 [place] % (Auto) 6.9 % 04/10/25 02:49 Eos % (Auto) 3.6 % 04/10/25 02:49 Baso % (Auto) 0.4 % 04/10/25 02:49 Neut # (Auto) 10.24 10^3/uL (1.8-7.7) H 04/10/25 02:49 Lymph # (Auto) 3.7 10^3/uL (0.8-4.8) 04/10/25 02:49 [place] # (Auto) 1.1 10^3/uL (0.2-0.9) H 04/10/25 02:49 Eos # (Auto) 0.6 10^3/uL (0.0-0.8) 04/10/25 02:49 Baso # (Auto) 0.1 10^3/uL (0.0-0.1) 04/10/25 02:49 Nucleated RBC % (auto) 0 % 04/10/25 02:49 Nucleated RBCs # 0.0 /100WBC 04/10/25 02:49 PT 14.20 SECONDS (12.1-14.9) 04/10/25 02:49 INR 1.02 (0.8-1.2) 04/10/25 02:49 APTT 32.4 SECONDS (23.9-36.7) 04/10/25 02:49 Sodium 139 mmol/L (136-145) 04/10/25 02:49 Potassium 3.3 mmol/L (3.5-5.1) L 04/10/25 02:49 Chloride 101 mmol/L (98-107) 04/10/25 02:49 Carbon Dioxide 28 mmol/L (22-29) 04/10/25 02:49 Anion Gap 13.3 (5-19) 04/10/25 02:49 BUN 11 mg/dL (8-23) 04/10/25 02:49 Creatinine 0.8 mg/dL (0.7-1.2) 04/10/25 02:49 GFR Calculation 98.0 mL/min (90-130) 04/10/25 02:49 Glucose 138 mg/dL (65-115) H 04/10/25 02:49 Calculated Osmolality 290 mOsm/kg (285-295) 04/10/25 02:49 Calcium 9.1 mg/dL (8.5-10.5) 04/10/25 02:49 Total Bilirubin 0.4 mg/dL (0.15-1.2) 04/10/25 02:49 AST 16 U/L (0-40) 04/10/25 02:49 ALT 14 U/L (0-41) 04/10/25 02:49 Alkaline Phosphatase 84 U/L (40-130) 04/10/25 02:49 Total Protein 7.1 g/dL (6.6-8.7) 04/10/25 02:49 Albumin 4.1 g/dL (3.5-5.2) 04/10/25 02:49 Globulin 3.0 g/dL (1.3-4.6) 04/10/25 02:49 XR interpretation done by ED provider, pending radiology final review Discharge Plan Discharge Patient Disposition: Admitted As Inpatient Clinical Impression: Closed fracture of left hip Qualifiers: Encounter type: initial encounter Qualified Code(s): S72.002A - Fracture of unspecified part of neck of left femur, initial encounter for closed fracture Condition: Stable Coding Level of Care Code 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
[2025-04-10 04:12] LABS: INR 1.02 (0.8-1.2); Partial Thromboplastin Time 32.4 SECONDS (23.9-36.7); Prothrombin Time 14.20 SECONDS (12.1-14.9)
--- NOTE | 2025-04-10 05:37 | PM.HP ---
Providers/Chief Complaint Admitting Physician: Christine Vivar MD--- admitted this morning at 5 AM Primary Care Provider: Rey Maria MD Chief Complaint: FALL History of Present Illness Ang Yadav is a 64 year old male with multiple medical problem who had just sustained a ground-level mechanical fall trying to get to his propane tank now fracturing left hip. Orthopedics has been consulted with Dr. Abel from the emergency room for a repair of this left hip. Patient is a full code 64-year-old male. Patient had been made n.p.o. at this time except meds. Pain medication provided patient has shown significant constipation in the hemicolon a CT of the pelvic finding and care had been initiated for that. Patient is opioid dependence that morphine 4 mg is not touching his pain. I have changed at least at this time for an acute pain management for 1 mg Dilaudid every 3 hours as needed. Patient in ED room 6 and n.p.o. except for meds and aids medically cleared for surgery. No chest pain no shortness of breath no acute infiltrate in the chest x-ray. Patient's clearance for surgery is to low intermediate risks for dying on the table from vascular event. Review of Systems Narrative: System review of all 10 organ system were significant for musculoskeletal due to hip fracture. Patient is in excruciating pain otherwise unremarkable Medications/Allergies Home Medications ?Medication ?Instructions ?Recorded ?Confirmed ?Last Taken ?Type oxycodone 15 mg tablet 15 mg PO QID 03/18/22 03/17/25 03/18/22 History tizanidine 4 mg capsule 4 mg PO BID PRN 09/17/24 03/17/25 Unknown History albuterol sulfate 90 mcg/actuation See Rx Instructions .Route 01/05/25 03/17/25 Unknown Rx aerosol inhaler .COMPLEX #8.5 grams atorvastatin 20 mg tablet 20 mg PO DAILY #90 tabs 01/05/25 03/17/25 Unknown Rx ezetimibe 10 mg tablet 10 mg PO DAILY #90 tabs 01/05/25 03/17/25 Unknown Rx gabapentin 300 mg capsule 900 mg (3 x 300 mg) PO TID #270 01/05/25 03/17/25 Unknown Rx caps isosorbide mononitrate 30 mg 30 mg PO DAILY #90 tabs 01/05/25 03/17/25 Unknown Rx tablet,extended release 24 hr nitroglycerin 0.4 mg sublingual 0.4 mg sublingual Q5M PRN chest 01/05/25 03/17/25 Unknown Rx tablet pain #25 tabs pantoprazole 40 mg tablet,delayed See Rx Instructions .Route 01/05/25 03/17/25 Unknown Rx release .COMPLEX #90 tabs sennosides 8.6 mg-docusate sodium 1 tab-cap PO BID #60 tabs 01/05/25 03/17/25 Unknown Rx 50 mg tablet (Senna with Docusate Sodium) tamsulosin 0.4 mg capsule See Rx Instructions .Route 01/05/25 03/17/25 Unknown Rx .COMPLEX #90 caps verapamil 180 mg tablet,extended See Rx Instructions .Route 01/05/25 03/17/25 Unknown Rx release .COMPLEX #90 tabs escitalopram oxalate 20 mg tablet 20 mg PO DAILY #90 tabs 03/17/25 03/17/25 Unknown Rx Allergies Allergy/AdvReac Type Severity Reaction Status Date / Time Iodinated Contrast Media Allergy Unknown Verified 01/24/25 14:13 PFSH Acute PFSH: Medical History Gynecomastia Compression fracture of spine Tobacco use disorder NAFLD (nonalcoholic fatty liver disease) Mixed dyslipidemia AAA (abdominal aortic aneurysm) s/p endovascular graft repair CAD (coronary artery disease) Essential hypertension Major depressive disorder PAD (peripheral artery disease) Spinal cord injury Social History Smoking and tobacco/nicotine status: current every day tobacco/nicotine user cigarettes Alcohol intake: former Substance/Drug Use: current Substance/Drug use frequency: daily Vitals/I&O/Wt Last Vital Signs Temp 99.1 F 04/10/25 02:43 Pulse 66 04/10/25 04:14 Resp 16 04/10/25 03:10 BP 115/59 04/10/25 04:14 Pulse Ox 97 04/10/25 04:14 O2 Del Method Room Air 04/10/25 02:43 Weight last 48 hrs Weight 68.039 kg Physical Exam Narrative: Generally patient is in excruciating pain holding up with the left lower extremities up in the air in pain even after getting 4 mg of IV morphine within the last 5 to 10 minutes. The patient tells me that he takes way more than that at home 15 mg of morphine 4 times a day [id number] for chronic body pain HEENT normocephalic atraumatic neck neck is supple cardiovascular heart rate is regular lungs are pretty much clear abdomen soft nontender nondistended unremarkable extremities are intact no edema has good pulses except for left hip excruciating pain from hip fracture. Neurology has no focality lab studies lab studies reviewed and noted. Urinary Catheter Management: Hanson: Cath Placed During This Visit: no Data 04/10/25 02:49 04/10/25 02:49 A&P Assessment and plan 1. Closed fracture of left hip: 2. Hypokalemia: 3. Gynecomastia: 4. Breast mass, left: 5. Tobacco use disorder: 6. Nicotine dependence, cigarettes, with other nicotine-induced disorders: 7. Major depressive disorder: 8. Essential hypertension: 9. Constipation due to opioid therapy: 10. Left hip pain: 11. CAD (coronary artery disease): Plan: Closed fracture of left hip with pain - IV morphine is not touching the pain - I have discontinued IV morphine 4 mg Q4 as needed for patient to have Dilaudid 1 mg every 3 hours as needed pain for current acute pain - After surgery hopefully patient will to home medication orally and to monitor and see if this will help some - Continue n.p.o. except for meds - Patient had been cleared for surgery for intermediate risk for her age and for ill events from vascular event on the table Hypokalemia--replaced with 40 mEq potassium chloride for potassium of 3.3 Nicotine addiction needing ongoing counseling -I have spoken to the patient to a limited amount of time because of current intense pain -Continue smoking cessation for this patient GI and DVT prophylaxis in place Chronic medical disorders such as CAD/constipation/essential hypertension/major depression/nicotine addiction--- continue with patient home medication and any counseling when need be. PDMP PDMP Reviewed: Not Reviewed Attestations Medical Necessity Statement*: Patient had been status post fall with a left hip fracture will need at least 2 midnights to optimize care. Coding Level of Care Code 29547 Diagnoses Closed fracture of left hip S72.002A Hypokalemia E87.6 Gynecomastia N62 Breast mass, left N63.20 Tobacco use disorder F17.200 Nicotine dependence, cigarettes, with other nicotine-induced disorders F17.218 Major depressive disorder F32.9 Essential hypertension I10 Constipation due to opioid therapy K59.03; T40.2X5A Left hip pain M25.552 CAD (coronary artery disease) I25.10 Time Spent (min) 60
[2025-04-10] MEDS: lidocaine 1% 5 ML in potassium chloride premix 100 ML 52.5 ML IV (05:53)
--- NOTE | 2025-04-10 06:09 | PC.NURSE ---
This nurse given verbal order by Dr Canada to give 1mg Dilaudid IVP once now, and to replace existing morphine PRN order with 1mg Dilaudid IVP Q3H PRN for severe pain. Verbal order also witnessed by charge nurse Katherin SMITH.
[2025-04-10] MEDS: HYDROmorphone 0.5 MG/0.5 ML INJ 1 MG IVP ×4 (06:24→21:43)
--- NOTE | 2025-04-10 07:05 | PC.NURSE ---
Assumed care of patient at 0700. Pt in bed talking on his cell phone at this time. Pt has IV potassium and NS at 75mls/hr infusing at this time.
[2025-04-10 07:31] LABS: Glucose Urine UA Negative (Normal); Nitrate Urine Negative (Negative); Specific Gravity, Urine 1.017 (1.005-1.030)
[2025-04-10 07:35] LABS: Add Urine Microscopic? YES
--- NOTE | 2025-04-10 07:50 | XRR_ITS ---
XR/XR femur LT min 2V* [id number] PROCEDURE INFORMATION: Exam: XR Left Femur Exam date and time: 04/10/2025 7:52 AM Age: 64 years old Clinical indication: Injury or trauma; Fall; Blunt trauma; Thigh or upper leg; Left; Additional info: Left hip FX TECHNIQUE: Imaging protocol: Radiologic exam of the left femur. Views: 2 views. COMPARISON: 1. CT angio abd aorta runof [id number] 08/21/2022 2:[address] bony pelvis [id number] 04/10/2025 4:16 AM FINDINGS/IMPRESSION: Bones/joints: Again noted is a comminuted, intertrochanteric fracture of the left hip. The left femoral head articulates normally with the acetabulum. The mid and distal left femur are intact. The left-sided pubic rami are intact. Soft tissues: No radiopaque foreign body or gas in the soft tissues. Vasculature: There are multifocal calcified plaques projecting over the left femoral artery and left popliteal artery.
--- NOTE | 2025-04-10 07:50 | XRR_ITS ---
PROCEDURE INFORMATION: Exam: XR Left Hip Exam date and time: 04/10/2025 7:52 AM Age: 64 years old Clinical indication: Injury or trauma; Fall; Blunt trauma (contusions or hematomas); Left; Hip; Additional info: Left it FX TECHNIQUE: Imaging protocol: Radiologic exam of the left hip. Views: 2 or 3 views hip with pelvis when performed. COMPARISON: CT bony pelvis [id number] 04/10/2025 4:16 AM FINDINGS: Tubes, catheters and devices: There is a partially imaged aorto bi-iliac stent graft. Bones/joints: Again noted is a comminuted intertrochanteric fracture of the left hip. The left femoral head continues to articulate with the acetabulum. The left femoral shaft is subtly displaced superiorly by several mm. The iliac bones, sacrum and pubic rami are intact. There are minor osteoarthritic changes at each hip. Soft tissues: Unremarkable. Gastrointestinal tract: Nonobstructed lower abdominal bowel-gas pattern. XR/XR hip LT 2-3V wo/w pel* [id number] IMPRESSION: Comminuted intertrochanteric fracture of the left hip.
--- NOTE | 2025-04-10 07:58 | PM.CONSULT ---
Documented by User: ANITA Sylvester 04/10/25 10:42 Providers/Reason For Consult Consulting Physician/Specialty*: Dr. Page DO/orthopedic surgeon Reason for Consult*: Left hip fracture Requesting Physician: Dr. Kilo DO/emergency department Attending Physician: Christine Vivar MD Primary Care Provider: Rey Maria MD History of Present Illness History of Present Illness Ang Yadav is a 64 year old male that is here with left hip fracture after mechanical fall. Patient states that last night he went out to check on the heating unit in his house and he says the ground was level and there is holes and he tripped causing fall. He injured left hip landing on left side and all of his pain is located in his left hip. Denies any other injury from fall. Patient uses a walker to ambulate at baseline. Patient is not on a blood thinner. He ate a couple hours before midnight last night. Review of Systems General: Reports: 10 or more systems reviewed and unremarkable except in HPI and below Const: Denies: fever(s) or chills ENMT: Denies: throat pain or nasal congestion Card: Denies: chest pain or palpitations Resp: Denies: dyspnea, productive cough or non-productive cough GI: Denies: abdominal pain, nausea or vomiting : Denies: dysuria Musc: Reports: extremity pain (Left hip) and limited range of motion (Left hip) Neuro: Denies: headache(s) Medications/Allergies Home Medications ?Medication ?Instructions ?Recorded ?Confirmed ?Last Taken ?Type oxycodone 15 mg tablet 15 mg PO QID 03/18/22 04/10/25 04/09/25 History atorvastatin 20 mg tablet 20 mg PO DAILY #90 tabs 01/05/25 04/10/25 04/09/25 Rx ezetimibe 10 mg tablet 10 mg PO DAILY #90 tabs 01/05/25 04/10/25 04/09/25 Rx isosorbide mononitrate 30 mg 30 mg PO DAILY #90 tabs 01/05/25 04/10/25 04/09/25 Rx tablet,extended release 24 hr nitroglycerin 0.4 mg sublingual 0.4 mg sublingual Q5M PRN chest 01/05/25 04/10/25 Unknown Rx tablet pain #25 tabs escitalopram oxalate 20 mg tablet 20 mg PO DAILY #90 tabs 03/17/25 04/10/25 04/09/25 Rx albuterol sulfate 90 mcg/actuation 2 puff inhalation QID PRN 04/10/25 04/10/25 Unknown History aerosol inhaler Shortness Of Breath Or Wheezing baclofen 20 mg tablet 20 mg PO TID PRN Back Pain 04/10/25 04/10/25 Unknown History gabapentin 300 mg capsule 300 mg PO TID 04/10/25 04/10/25 04/09/25 History gabapentin 600 mg tablet 600 mg PO TID 04/10/25 04/10/25 04/09/25 History pantoprazole 40 mg tablet,delayed 40 mg PO DAILY 04/10/25 04/10/25 04/09/25 History release sennosides 8.6 mg-docusate sodium 1 tab PO BID 04/10/25 04/10/25 04/09/25 History 50 mg tablet (Senna with Docusate Sodium) tamsulosin 0.4 mg capsule 0.4 mg PO DAILY 04/10/25 04/10/25 04/09/25 History verapamil 180 mg tablet,extended 180 mg PO DAILY 04/10/25 04/10/25 04/09/25 History release Allergies Allergy/AdvReac Type Severity Reaction Status Date / Time Iodinated Contrast Media Allergy Unknown Verified 01/24/25 14:13 Current Medications Generic Name Dose Route Start Last Admin Trade Name Freq PRN Reason Stop Dose Admin Sodium Chloride 1,000 mls @ 75 mls/hr 04/10/25 05:37 04/10/25 05:53 Sodium Chloride 0.9% IV 75 mls/hr .[id number] EDGAR Administration Potassium Phosphate 40 meq/ 109.0909 mls @ 27.25 mls/hr 04/10/25 05:37 04/10/25 07:30 Sodium Chloride IV 04/10/25 09:37 Not Given ONCE ONE PFSH Acute PFSH: Medical History (Updated 04/10/25 @ 05:45 by Christine Vivar MD) Gynecomastia Compression fracture of spine Tobacco use disorder NAFLD (nonalcoholic fatty liver disease) Mixed dyslipidemia AAA (abdominal aortic aneurysm) s/p endovascular graft repair CAD (coronary artery disease) Essential hypertension Major depressive disorder PAD (peripheral artery disease) Spinal cord injury Social History Smoking and tobacco/nicotine status: current every day tobacco/nicotine user cigarettes Alcohol intake: former Substance/Drug Use: current Substance/Drug use frequency: daily Vitals/I&O/Wt Last Vital Signs Temp 99.1 F 04/10/25 02:43 Pulse 71 04/10/25 06:55 Resp 16 04/10/25 05:56 BP 157/79 04/10/25 06:55 Pulse Ox 91 04/10/25 06:55 O2 Del Method Room Air 04/10/25 02:43 Weight last 48 hrs Weight 150 lb Physical Exam Const: COMMON NORMALS: no acute distress and alert Resp: COMMON NORMALS: normal respiratory effort and No retractions Cardio: COMMON NORMALS: Peripheral pulses 2+ throughout PERIPHERAL PULSES: Peripheral pulses 2+ throughout Extremity: NARRATIVE EXTREMITY EXAM: (Left) lower extremity-leg is shortened and externally rotated. Positive logroll test. Tenderness to palpation right hip. compartments are soft and compressible. Patient can Wiggle toes. Toes are warm and well-perfused. Pedal pulse 2+. Secondary assessment of other extremities. Upper extremities-no visible injuries, abrasions. Full range of motion in shoulders, elbows and wrist. no tenderness to palpation of shoulders or wrist. (Right) lower extremity-no visible injury or trauma seen. Full range of motion in hip. Negative logroll test. Patient able to perform straight leg raise and can dorsiflex plantarflex foot. Pedal pulse 2+ and patient can wiggle toes. Neuro: SENSORIUM/ORIENTATION: Yes alert Skin: GENERAL SKIN EXAM: dry skin Urinary Catheter Management: Hanson: Cath Placed During This Visit: no Reason for Continuing Indwelling Catheter: Other Data 04/10/25 02:49 04/10/25 02:49 Xray Ortho: Radiologist's impression: Patient: Ang Yadav Unit #: [id number] : 1960 Age/Sex: 64 / M ADM Date: 04/10/25 Loc: ICU Room/Bed: [place] [address]: Pan Santamaria MD Ordering Provider/Ordering MD: Nayan Abel Date of Service: 04/10/25 Procedure(s): XR hip LT 2-3V wo/w pel* [id number] Accession Number(s): [id number] Report Number: [id number] PROCEDURE INFORMATION: Exam: XR Left Hip Exam date and time: 04/10/2025 7:52 AM Age: 64 years old Clinical indication: Injury or trauma; Fall; Blunt trauma (contusions or hematomas); Left; Hip; Additional info: Left it FX TECHNIQUE: Imaging protocol: Radiologic exam of the left hip. Views: 2 or 3 views hip with pelvis when performed. COMPARISON: CT bony pelvis [id number] 04/10/2025 4:16 AM FINDINGS: Tubes, catheters and devices: There is a partially imaged aorto bi-iliac stent graft. Bones/joints: Again noted is a comminuted intertrochanteric fracture of the left hip. The left femoral head continues to articulate with the acetabulum. The left femoral shaft is subtly displaced superiorly by several mm. The iliac bones, sacrum and pubic rami are intact. There are minor osteoarthritic changes at each hip. Soft tissues: Unremarkable. Gastrointestinal tract: Nonobstructed lower abdominal bowel-gas pattern. XR/XR hip LT 2-3V wo/w pel* [id number] IMPRESSION: Comminuted intertrochanteric fracture of the left hip. Dictated By: Marques Vazquez MD Patient: Ang Yadav Unit #: [id number] : 1960 Age/Sex: 64 / M ADM Date: 04/10/25 Loc: ICU Room/Bed: [place] [address]: Pan Santamaria MD Ordering Provider/Ordering MD: Nayan Abel Date of Service: 04/10/25 Procedure(s): XR femur LT min 2V* [id number] Accession Number(s): [id number] Report Number: [id number] XR/XR femur LT min 2V* [id number] PROCEDURE INFORMATION: Exam: XR Left Femur Exam date and time: 04/10/2025 7:52 AM Age: 64 years old Clinical indication: Injury or trauma; Fall; Blunt trauma; Thigh or upper leg; Left; Additional info: Left hip FX TECHNIQUE: Imaging protocol: Radiologic exam of the left femur. Views: 2 views. COMPARISON: 1. CT angio abd aorta runof [id number] 08/21/2022 2:[address] bony pelvis [id number] 04/10/2025 4:16 AM FINDINGS/IMPRESSION: Bones/joints: Again noted is a comminuted, intertrochanteric fracture of the left hip. The left femoral head articulates normally with the acetabulum. The mid and distal left femur are intact. The left-sided pubic rami are intact. Soft tissues: No radiopaque foreign body or gas in the soft tissues. Vasculature: There are multifocal calcified plaques projecting over the left femoral artery and left popliteal artery. Dictated By: Marques Vazquez MD Signed By: Marques Vazquez MD A&P Assessment and plan 1. Closed fracture of left hip: Plan: Plan: -Imaging and Labs reviewed -Hospitalist on board for medical management. -VTE prophylaxis -Nonweightbearing on left leg -Pain control - N.p.o. until surgery -Surgery this morning for left hip Trochanteric femur nail PDMP PDMP Reviewed: Not Reviewed Coding Level of Care Code Acute Code for Chg Fwd Diagnoses Closed fracture of left hip S72.002A Time Spent (min) 45 Documented by User: Nayan Abel DO 04/10/25 13:11 Medications/Allergies Home Medications ?Medication ?Instructions ?Recorded ?Confirmed ?Last Taken ?Type oxycodone 15 mg tablet 15 mg PO QID 03/18/22 04/10/25 04/09/25 History atorvastatin 20 mg tablet 20 mg PO DAILY #90 tabs 01/05/25 04/10/25 04/09/25 Rx ezetimibe 10 mg tablet 10 mg PO DAILY #90 tabs 01/05/25 04/10/25 04/09/25 Rx isosorbide mononitrate 30 mg 30 mg PO DAILY #90 tabs 01/05/25 04/10/25 04/09/25 Rx tablet,extended release 24 hr nitroglycerin 0.4 mg sublingual 0.4 mg sublingual Q5M PRN chest 01/05/25 04/10/25 Unknown Rx tablet pain #25 tabs escitalopram oxalate 20 mg tablet 20 mg PO DAILY #90 tabs 03/17/25 04/10/25 04/09/25 Rx albuterol sulfate 90 mcg/actuation 2 puff inhalation QID PRN 04/10/25 04/10/25 Unknown History aerosol inhaler Shortness Of Breath Or Wheezing baclofen 20 mg tablet 20 mg PO TID PRN Back Pain 04/10/25 04/10/25 Unknown History gabapentin 300 mg capsule 300 mg PO TID 04/10/25 04/10/25 04/09/25 History gabapentin 600 mg tablet 600 mg PO TID 04/10/25 04/10/25 04/09/25 History pantoprazole 40 mg tablet,delayed 40 mg PO DAILY 04/10/25 04/10/25 04/09/25 History release sennosides 8.6 mg-docusate sodium 1 tab PO BID 04/10/25 04/10/25 04/09/25 History 50 mg tablet (Senna with Docusate Sodium) tamsulosin 0.4 mg capsule 0.4 mg PO DAILY 04/10/25 04/10/25 04/09/25 History verapamil 180 mg tablet,extended 180 mg PO DAILY 04/10/25 04/10/25 04/09/25 History release Allergies Allergy/AdvReac Type Severity Reaction Status Date / Time Iodinated Contrast Media Allergy Unknown Verified 01/24/25 14:13 PFSH Acute PFSH: Medical History (Updated 04/10/25 @ 05:45 by Christine Vivar MD) Gynecomastia Compression fracture of spine Tobacco use disorder NAFLD (nonalcoholic fatty liver disease) Mixed dyslipidemia AAA (abdominal aortic aneurysm) s/p endovascular graft repair CAD (coronary artery disease) Essential hypertension Major depressive disorder PAD (peripheral artery disease) Spinal cord injury Social History Smoking and tobacco/nicotine status: current every day tobacco/nicotine user cigarettes Alcohol intake: former Substance/Drug Use: current Substance/Drug use frequency: daily Physical Exam Urinary Catheter Management: Hanson: Cath Placed During This Visit: no Data 04/10/25 02:49 04/10/25 02:49 Xray Ortho: Radiologist's impression: Patient: Ang Yadav Unit #: [id number] : 1960 Age/Sex: 64 / M ADM Date: 04/10/25 Loc: ICU Room/Bed: [place] [address]: Pan Santamaria MD Ordering Provider/Ordering MD: Nayan Abel Date of Service: 04/10/25 Procedure(s): XR hip LT 2-3V wo/w pel* [id number] Accession Number(s): [id number] Report Number: [id number] PROCEDURE INFORMATION: Exam: XR Left Hip Exam date and time: 04/10/2025 7:52 AM Age: 64 years old Clinical indication: Injury or trauma; Fall; Blunt trauma (contusions or hematomas); Left; Hip; Additional info: Left it FX TECHNIQUE: Imaging protocol: Radiologic exam of the left hip. Views: 2 or 3 views hip with pelvis when performed. COMPARISON: CT bony pelvis [id number] 04/10/2025 4:16 AM FINDINGS: Tubes, catheters and devices: There is a partially imaged aorto bi-iliac stent graft. Bones/joints: Again noted is a comminuted intertrochanteric fracture of the left hip. The left femoral head continues to articulate with the acetabulum. The left femoral shaft is subtly displaced superiorly by several mm. The iliac bones, sacrum and pubic rami are intact. There are minor osteoarthritic changes at each hip. Soft tissues: Unremarkable. Gastrointestinal tract: Nonobstructed lower abdominal bowel-gas pattern. XR/XR hip LT 2-3V wo/w pel* [id number] IMPRESSION: Comminuted intertrochanteric fracture of the left hip. Dictated By: Marques Vazquez MD Patient: Ang Yadav Unit #: [id number] : 1960 Age/Sex: 64 / M ADM Date: 04/10/25 Loc: ICU Room/Bed: [place] [address]: Pan Santamaria MD Ordering Provider/Ordering MD: Nayan Abel Date of Service: 04/10/25 Procedure(s): XR femur LT min 2V* [id number] Accession Number(s): [id number] Report Number: [id number] XR/XR femur LT min 2V* [id number] PROCEDURE INFORMATION: Exam: XR Left Femur Exam date and time: 04/10/2025 7:52 AM Age: 64 years old Clinical indication: Injury or trauma; Fall; Blunt trauma; Thigh or upper leg; Left; Additional info: Left hip FX TECHNIQUE: Imaging protocol: Radiologic exam of the left femur. Views: 2 views. COMPARISON: 1. CT angio abd aorta runof [id number] 08/21/2022 2:[address] bony pelvis [id number] 04/10/2025 4:16 AM FINDINGS/IMPRESSION: Bones/joints: Again noted is a comminuted, intertrochanteric fracture of the left hip. The left femoral head articulates normally with the acetabulum. The mid and distal left femur are intact. The left-sided pubic rami are intact. Soft tissues: No radiopaque foreign body or gas in the soft tissues. Vasculature: There are multifocal calcified plaques projecting over the left femoral artery and left popliteal artery. Dictated By: Marques Vazquez MD Signed By: Marques Vazquez MD Patient: Ang Yadav Unit #: [id number] : 1960 Age/Sex: 64 / M ADM Date: 04/10/25 Loc: ER Room/Bed: Attending Dr: Ordering Provider/Ordering MD: Jermain Boateng DO Date of Service: 04/10/25 Procedure(s): CT bony pelvis 37164 Accession Number(s): [id number] Report Number: [id number] PROCEDURE INFORMATION: Exam: CT Pelvis Without Contrast, Skeleton Exam date and time: 04/10/2025 4:16 AM Age: 64 years old Clinical indication: Injury or trauma; Blunt trauma (contusions or hematomas); Prior surgery; Surgery date: 6+ months; Surgery type: Aaa endograft; Ground level fall landing on left hip. ; Additional info: Fall posterior left hip pain TECHNIQUE: Imaging protocol: Computed tomography of the pelvis without contrast. Exam focused on the skeleton. Radiation optimization: All CT scans at this facility use at least one of these dose optimization techniques: automated exposure control; mA and/or kV adjustment per patient size (includes targeted exams where dose is matched to clinical indication); or iterative reconstruction. COMPARISON: CR XR hip RT 2-3V wo/w pel* [id number] 09/13/2024 7:20 PM RADIATION DOSE METRICS: Total DLP (mGy-cm): 314.38 FINDINGS: Vasculature: There is a partially imaged aorto bi-iliac stent graft, but the patency can not be assessed without IV contrast. Urinary bladder: The urinary bladder is normal in appearance. Bones/joints: There is a slightly angulated intertrochanteric fracture of the left hip. The left femoral neck is angulated superiorly relative to the left femoral shaft. Both acetabuli are intact. The bilateral superior and inferior pubic rami are intact. The sacrum is intact. There are chronic degenerative changes at L4-L5 and L5-S1 with disc space narrowing and mild bilateral neural foraminal stenoses. Soft tissues: Mild edema in the subcutaneous soft tissues overlying the left hip. Mild swelling of the musculature of the lateral left thigh. CT/CT bony pelvis 85173 IMPRESSION: 1. Slightly angulated intertrochanteric fracture of the left hip. 2. Constipation of the right hemicolon. A&P Assessment and plan 1. Closed fracture of left hip: Plan: Plan: -Imaging and Labs reviewed -Hospitalist on board for medical management. -VTE prophylaxis -Nonweightbearing on left leg -Pain control - N.p.o. until surgery -Surgery this morning for left hip Trochanteric femur nail Orthopedic attending addendum: Patient was seen evaluated this morning after being admitted by the hospitalist team secondary to having a ground-level fall and landing on his left hip he has a comminuted displaced intertrochanteric femur fracture. This point in time reviewed his imaging I did order a standard hip and pelvis as well as femur x-rays which I reviewed and demonstrate the displaced left hip intertrochanteric femur fracture. At this point in time we talked about treatment options with the patient in detail. He does ambulate at baseline. At this point in time we talked about nonoperative operative invention. We talked about the ins and outs of procedure, the risk benefits complication alternatives surgical nonsurgical treatment options. Risk of surgery include but not limited to make a better make it worse, injury to nerves vessels or tendons, hardware failure, painful hardware and prominence, injury to nerves vessels or tendons, blood loss anemia requiring transfusions, failure of fixation and further surgery. Understanding risk of surgery patient elects proceed with surgical intervention. All questions been answered at this time. He does understand the benefits of this procedure would be for earlier mobilization pain control at this point in time through shared decision making he elects to proceed with surgical intervention for left hip trochanteric femur nail all questions been answered at this time. Will proceed with surgical intervention today. Has been n.p.o. since midnight. PDMP PDMP Reviewed: Not Reviewed Coding Level of Care Code Acute Code for Chg Fwd Diagnoses Closed fracture of left hip S72.002A Time Spent (min) 45
--- OUTSIDE RECORDS SUMMARY | 2025-04-10 08:14 | XMS_ITS | Clinical Summary ---
Author Organization [facility] [address] [facility] [place] Address [address] [place] [address] Phone Care Team Providers Care Workforce Development Vice President Name Role Phone Rajesh Soria MD Primary Care Provider [phone] Allergies Active Allergy Reactions Criticality Noted Date [...] Sex Assigned at Male 05/18/2024 5:16 PM [employer] Legal Sex Male 10:06 AM CDT Gender Identity Male 05/18/2024 5:16 PM [employer] Sexual Orientation Straight 05/18/2024 5: 16 PM [employer]PER[employer] Last Filed Vital Signs Vital Sign Reading Time Taken Comments Blood Pressure 102/52 07/02/2024 1:46 PM [employer] Pulse 71 07/02/2024 1:46 PM [employer]PER[employer]OR Temperature 36.2 C (97.1 F) 05/31/2024 11:41 AM [employer] SUPER[employer]OR Respiratory Rate 18 05/31/2024 11:41 AM [employer] SUPER[employer]OR Oxygen Saturation 95% 07/02/2024 1:46 PM [employer]OR Inhaled Oxygen Concentration - - Weight 68.9 kg (152 lb) 07/02/2024 1:46 PM [employer] Height 185.4 cm (6' 1 ) 07/02/2024 1:46 PM [employer] Body Mass Index 20.05 07/02/2024 1:46 PM [employer]PERVISOR Plan of Treatment Health Maintenance Due Date [...] 05/25/2024 INFLUENZA VACCINE (#1) 2025 02/23/2024 Insurance [facility] [id number] [place] [id number] Care Teams Workforce Development Vice President Relationship Specialty Start Date End Date Rajesh Soria MD [address] [place] [id number] PCP - General Family Practice 02/23/24
--- NOTE | 2025-04-10 08:21 | PC.PHAR ---
Pt has a maintenance dose of Oxycodone 15mg 4 times daily every day.
--- NOTE | 2025-04-10 08:50 | ANES.PREANE2 ---
Pre-Anesthetic Assessment Height/Weight: Height 6 ft 2 in Weight 150 lb Temp Pulse Resp BP Pulse Ox O2 Del Method 98.5 F 81 24 H 176/79 95 Room Air 04/10/25 08:26 04/10/25 08:26 04/10/25 08:26 04/10/25 08:26 04/10/25 08:26 04/10/25 08:26 Preop Diagnosis: Hip fracture Operation Date: 04/10/25 11:40 Proposed Procedures p Trochanteric Femoral Nail(Left) - Nayan Page, DO Was Beta Darrell taken within 24 hours: N/A Was Clonidine taken within 24 hours: N/A Social Tobacco and No alcohol Exam alert, oriented x 3, clear to auscultation bilaterally and regular rate & rhythm Airway Submandibular: within normal limits Cervical ROM: within normal limits Mallampati: Class II Comments: Comments: Edentulous Anesthetic Plan ASA status: 3 Anesthesia: General Other: No prior issues with anesthesia NPO since yesterday evening around 11 PM. States he ate a bowl of cereal Current smoker, nicotine and marijuana RHOADES AAA, s/p endovascular graft repair in 2017 Patient ended up with a resultant spinal cord injury from his AAA surgery. States that he has regained some function of his legs but has to walk with a walker CAD Hypertension on verapamil Labs from today reviewed and acceptable for procedure, WBC 15.7, hemoglobin 13.4, 3.3, patient received 40 mill equivalents IV potassium Plan for general anesthesia Medications/Allergies Home Medications ?Medication ?Instructions ?Recorded ?Confirmed ?Last Taken ?Type oxycodone 15 mg tablet 15 mg PO QID 03/18/22 04/10/25 04/09/25 History atorvastatin 20 mg tablet 20 mg PO DAILY #90 tabs 01/05/25 04/10/25 04/09/25 Rx ezetimibe 10 mg tablet 10 mg PO DAILY #90 tabs 01/05/25 04/10/25 04/09/25 Rx isosorbide mononitrate 30 mg 30 mg PO DAILY #90 tabs 01/05/25 04/10/25 04/09/25 Rx tablet,extended release 24 hr nitroglycerin 0.4 mg sublingual 0.4 mg sublingual Q5M PRN chest 01/05/25 04/10/25 Unknown Rx tablet pain #25 tabs escitalopram oxalate 20 mg tablet 20 mg PO DAILY #90 tabs 03/17/25 04/10/25 04/09/25 Rx albuterol sulfate 90 mcg/actuation 2 puff inhalation QID PRN 04/10/25 04/10/25 Unknown History aerosol inhaler Shortness Of Breath Or Wheezing baclofen 20 mg tablet 20 mg PO TID PRN Back Pain 04/10/25 04/10/25 Unknown History gabapentin 300 mg capsule 300 mg PO TID 04/10/25 04/10/25 04/09/25 History gabapentin 600 mg tablet 600 mg PO TID 04/10/25 04/10/25 04/09/25 History pantoprazole 40 mg tablet,delayed 40 mg PO DAILY 04/10/25 04/10/25 04/09/25 History release sennosides 8.6 mg-docusate sodium 1 tab PO BID 04/10/25 04/10/25 04/09/25 History 50 mg tablet (Senna with Docusate Sodium) tamsulosin 0.4 mg capsule 0.4 mg PO DAILY 04/10/25 04/10/25 04/09/25 History verapamil 180 mg tablet,extended 180 mg PO DAILY 04/10/25 04/10/25 04/09/25 History release Allergies Allergy/AdvReac Type Severity Reaction Status Date / Time Iodinated Contrast Media Allergy Unknown Verified 01/24/25 14:13 Current Medications Generic Name Dose Route Start Last Admin Trade Name Freq PRN Reason Stop Dose Admin Hydromorphone HCl 1 mg 04/10/25 06:06 04/10/25 08:05 Hydromorphone 0.5 Mg/0.5 Ml Inj IVP 1 mg Q3H PRN Administration PAIN Potassium Phosphate 40 meq/ 109.0909 mls @ 27.25 mls/hr 04/10/25 05:37 04/10/25 07:30 Sodium Chloride IV 04/10/25 09:37 Not Given ONCE ONE PFSH Anesthesia Medical History (Updated 04/10/25 @ 05:45 by Christine Vivar MD) Gynecomastia Compression fracture of spine Tobacco use disorder NAFLD (nonalcoholic fatty liver disease) Mixed dyslipidemia AAA (abdominal aortic aneurysm) s/p endovascular graft repair CAD (coronary artery disease) Essential hypertension Major depressive disorder PAD (peripheral artery disease) Spinal cord injury Social History Smoking and tobacco/nicotine status: current every day tobacco/nicotine user cigarettes Alcohol intake: former Substance/Drug Use: current Substance/Drug use frequency: daily Data Anesthesia 04/10/25 02:49 04/10/25 02:49 Short CBC 04/10/25 Range/Units 02:49 WBC 15.74 H (3.29-11.43) 10^3/uL Hgb 13.40 (11.27-16.99) g/dL Hct 40.6 (37-53) % MCV 94.9 (82-101) fl Plt Count 249 (157-399) 10^3/cmm Neut % (Auto) 65.1 % Neut # (Auto) 10.24 H (1.8-7.7) 10^3/uL BMP 04/10/25 02:49 Sodium 139 Potassium 3.3 L Chloride 101 Carbon Dioxide 28 BUN 11 Creatinine 0.8 Glucose 138 H Calcium 9.1 Liver Function 04/10/25 Range/Units 02:49 Total Bilirubin 0.4 (0.15-1.2) mg/dL AST 16 (0-40) U/L ALT 14 (0-41) U/L Alkaline Phosphatase 84 (40-130) U/L Albumin 4.1 (3.5-5.2) g/dL Urine 04/10/25 Range/Units 07:20 Urine Color Yellow (Yellow) Urine Appearance Clear (CLEAR) Urine pH 6.5 (5-7) Ur Specific [place] 1.017 (1.005-1.030) Urine Protein Negative (Negative) Urine Glucose (UA) Negative (Normal) Urine Ketones Negative (Negative) Urine Nitrate Negative (Negative) Urine Bilirubin Negative (Negative) Ur Leukocyte Esterase Negative (Negative) Urine RBC 3-5 (0-2) /hpf Urine WBC 0-5 (0-5) /hpf Coags 04/10/25 02:49 PT 14.20 INR 1.02 APTT 32.4 Cardiac Studies: Echocardiogram 08/21/22
[2025-04-10 08:58] LABS: Magnesium 2.1 mg/dL (1.7-2.3)
[2025-04-10] MEDS: acetaminophen 1,000 MG/100 ML PIGGYBACK 400 MG IV (08:58)
--- NOTE | 2025-04-10 10:34 | W.PM.OPSUD ---
Surgery/Procedure H&P Update DATE OF PROCEDURE: April 10, 2025 DATE H&P PERFORMED: 04/10/25 H&P UPDATE INFORMATION: I have reviewed H&P completed within last 30 days, I have examined patient prior to procedure and No changes to prior documentation CHANGES TO PREVIOUS DOCUMENTATION: Patient has a left hip displaced comminuted intertrochanteric femur fracture. Once again reviewed his options as far as nonoperative operative mention. Also detailed the ins and outs procedure the risk benefits complications alternatives of surgical nonsurgical treatment options. Understanding risk of surgery patient elects proceed with surgical intervention all questions been answered at this time. Will proceed with a left hip trochanteric femur nail today. PREOP DIAGNOSIS: Left hip intertrochanteric femur fracture PRIMARY INDICATION FOR PROCEDURE: Left hip intertrochanteric femur fracture PLANNED PROCEDURE: Operation Date: 04/10/25 11:40 Proposed Procedures p Trochanteric Femoral Nail(Left) - Nayan Abel DO
--- NOTE | 2025-04-10 10:38 | PC.NURSE ---
1038 - pts brayan Jefferson, in pacu - took pts cellphone per pt request
--- NOTE | 2025-04-10 12:00 | XR_ITS ---
WS: [id number] Left hip, C-arm fluoroscopy views, 04/10/2025 Clinical Data: LT TFN; OR PICS Comparison: Pelvis and left hip, 04/10/2025 Findings: Dr. Abel reduced the intertrochanteric left hip fracture with an oblique nail in the femoral neck and a proximal intra medullary femoral tamiko. XR/XR hip LT 2-3V wo/w pel* [id number] Impression: Internal fixation of left hip intertrochanteric fracture.
[2025-04-10] MEDS: tranexamic acid 1,000 MG/100 ML PREMIX 600 MG IV ×2 (12:07→18:17)
[2025-04-10] MEDS: ceFAZolin 2,000 MG in sodium chloride 0.9% (plus) 50 ML 100 MG IV ×2 (12:07→21:44)
--- NOTE | 2025-04-10 13:01 | W.PM.BPON ---
Date of Procedure: 04/10/2025 Surgeon: Nayan Abel DO Veterinary Surgery Technologist(s): Marques Abel PA-C Procedure(s) performed: Left hip trochanteric femur nail Findings of the procedure(s): Underwent procedure as planned without issues or complications Estimated blood loss: 125 mL Specimen(s) removed: None Post-operative diagnosis: Left hip intertrochanteric femur fracture
--- NOTE | 2025-04-10 13:02 | P.OP_ITS ---
Operative Report Date of procedure: April 10, 2025 Surgeon: Nayan Abel DO [employer] Developer: Marques Abel PA-C: PA was necessary for assistance in this case with leg positioning assistance with fracture reduction, assistance with fracture fixation and implantation, assistance in wound closure and dressing application. Procedure: Procedure: Post-op diagnosis: Left?displaced intertrochanteric femur fracture Procedure done: ?Left?hip intertrochanteric femur fracture ORIF with trochanteric femur nail Implants: [place] gamma?nail?short 10 mm x 170 mm x 125 degree Lag screw 10.5 mm x 105?mm Distal?locking screw 5 mm x?42.5?mm Surgeon: Nayan Abel DO Estimated blood?loss: 125 mL IV fluids: See anesthesia record Urine output: 500 mL Complications: See operative report Findings: See operative report narrative Condition: stable Disposition: Floor Brief History: Patient sustained a fall and was found to have a?Left intertrochanteric hip fx.?Pt has?been unable to bear weight,?Left?hip/lower extremity shortened and externally rotated.? At this point time Pt?was admitted by the hospitalist team and orthopedics was consulted.??Refer to consult note for detailed HPI.??We nolvia ked about treatment options as far as nonoperative and operative intervention. Recommend?Left?hip?trochanteric femur?nail.??At this point time patient would?like to pursue surgical intervention for benefits of pain control and earlier mobilization.?? Patient understands the ins and outs of procedure, the risk benefits complication alternatives of surgical nonsurgical treatment options.? Understanding risk of surgery?pt?agrees to proceed with surgical intervention all questions answered.? Consent obtained. Procedure: Patient seen evaluated in the preoperative holding area.? Consent was obtained.? Correct extremity was then marked.? Once cleared by anesthesia and the hospitalist team patient was taken back to the operative suite.? Patient underwent anesthesia per the anesthesia department.? Once appropriately anesthetized patient was placed on a fracture [place] table.? Patient was appropriately secured to the bed.? All bony prominences were well-padded.? At this point time patient received appropriate preoperative antibiotics.? Final timeout was performed.? Prior to beginning surgery a standard closed reduction maneuver was placed on the [place] table and?large C-arm was brought in.? After performing a closed reduction maneuver there was able to achieve satisfactory reduction of?Left?intertrochanteric femur fracture.? Fracture site did not extend into the subtrochanteric region as result plan was for a short?nail.?? This point time the right?lower extremity was then prepped and draped in standard orthopedic fashion. A standard?longitudinal incision was made just proximal to the greater?trochanter roughly 4 cm in?length sharp scalpel vision was made through skin and subcutaneous tissue.? I then utilized a blunt Gonsalez to split? fascia and mobilized directly down to the greater?trochanter.? I then inserted my starting guidewire which was placed appropriate starting position the tip of the greater?trochanter.? This was advanced in AP and?lateral films to be in center center position and advanced to the?level?lesser?trochanter.? This was confirmed to be in center center position on AP and?lateral imaging.? Once this was done I then introduced my opening reamer which was then subsequently guide pin removed.? I selected a 10 mm x 170 mm x 125 degree. At this point time the?nail?was then?loaded onto the [employer] gamma?trochanteric?nail?guide.? This was placed within the canal and confirmed with XR and the setscrew was then gently placed not?locked.? The?nail?was then impacted to appropriate depth .? At this point time I then inserted my?lag screw guide and subsequently made a small incision through skin and subcutaneous tissue splitting the IT band?longitudinally and the guide was placed directly onto bone.? Next I then subsequently placed the guidewire in center center position in the head with an appropriate tip to apex distance this was confirmed with multiple orthogonal images.? Once I was satisfied with my planned?lag screw placement I then measured which was?105?mm.? I then set my cannulated drill and subsequently reamed this into the head at appropriate depth.? I then had my rep open the 10.5 mm x?105?mm?lag screw which was then opened on the back table and subsequently screwed into place over my cannulated drill guide.? This was placed with excellent tip to apex distance.? Next I then utilized the compressing device and subsequently compressed my fracture after I?let off traction.? This had excellent fracture compression and opposition and closing down to my fracture?line.? Next I then?locked the?nail?by?locking my setscrew.? This point time the guidewire as well as the sleeve was then removed.? Next I plan for statically?locking the?nail?distally.? This triple sleeve was then placed a small stab incision was made blunt dissection directly down to bone and the guide sleeve was placed and?locked directly onto the bone.? I then inserted the drill bit and subsequently drilled bicortically measured appropriate?length screw and then placed a 42.5?mm distal interlocking screw and had excellent fixation was appropriate?length.? This point time is completed my construct I remove the outer jig and took final images of AP and?lateral of t he?Left?intertrochanteric femur fracture which showed stable reduction and stable fixation.? Incision was then thoroughly irrigated.? Hemostasis was maintained with electrocautery.? I then once again thoroughly irrigated the incisions and then subsequently closed in?layered fashion of 0 Vicryl 2-0 Vicryl and jon.? Silverlon dressings applied.? Patient was then awakened from anesthesia transported onto the hospital bed and taken to PACU in stable condition.? Patient tolerated procedure without complications. Disposition: Patient taken to PACU in stable condition.? Postoperatively,? Patient to receive appropriate discharge instructions as well as pain medication DVT prophylaxis postoperatively.? Patient will be allowed weightbearing as tolerated?Left?lower extremity.? Will receive appropriate postoperative antibiotics, PT/OT.? Patient to follow-up in the orthopedic office in 2 weeks.? Patients family understands and agrees with current plan.? All questions answered.
--- NOTE | 2025-04-10 13:14 | XRR_ITS ---
PROCEDURE INFORMATION: Exam: XR Left Hip Exam date and time: 04/10/2025 1:51 PM Age: 64 years old Clinical indication: Injury or trauma; Fall; Fracture of pelvis & hip; Left; Traumatic fracture; Neck of femur; Closed fracture; Prior surgery; Surgery date: Post-operative (0-2 days); Surgery type: L hip troch nail; Additional info: Left hip troch nail TECHNIQUE: Imaging protocol: Radiologic exam of the left hip. Views: 2 or 3 views hip with pelvis when performed. COMPARISON: CR XR hip LT 2-3V wo/w pel* [id number] 04/10/2025 7:52 AM FINDINGS: Bones/joints: There has been interval internal fixation of the left intertrochanteric hip fracture. An intact intramedullary tamiko and femoral fixation screw is in place. An intact compression screw traverses the femoral neck. The left intertrochanteric fracture has been reduced. Soft tissues: Postsurgical gas lies in the soft tissues lateral to the left hip. Lateral skin staple line is present. XR/XR hip LT 2-3V wo/w pel* [id number] IMPRESSION: Status post internal fixation of left intertrochanteric hip fracture.
[2025-04-10] MEDS: fentaNYL 50 mcg/mL INJ 2mL IVP (13:43)
--- NOTE | 2025-04-10 13:45 | PM.PACU ---
PACU note Narrative: Patient is a 64-year-old male just underwent a left hip fracture ORIF. Pt transferred to PACU in stable condition. Dressing is dry. pt is awake and alert. pt can wiggle toes. Distal pulses are palpable toes are warm and well-perfused. Cap refill is normal and under 2 seconds. Sensation to foot is intact. Pain is controlled. Exam: awake Disposition: admitted
--- NOTE | 2025-04-10 14:20 | PC.NURSE ---
1415 - accepted into room 260 with Kay, at side - pt in no distress upon this nurse exiting care - BP 164/81 - pulse 68 - 02 94% temp 97.6
[2025-04-10] MEDS: oxyCODONE 5 mg IR Tab/Cap PO (15:24)
[2025-04-10 15:43] LABS: Hematocrit 37.7 % (37-53); Hemoglobin 12.40 g/dL (11.27-16.99); Mean Corpuscular HGB Conc 32.9 g/dL (30-55); Mean Corpuscular Hemoglobin 31.8 pg (27-33); Mean Corpuscular Volume 96.7 fl (82-101); Nucleated Red Blood Cells % 0 %; Platelet Count 204 10^3/cmm (157-399); Red Blood Count 3.90 10^6/uL (3.85-5.65); White Blood Count 19.38 10^3/uL (3.29-11.43)
[2025-04-10] MEDS: sodium chlor 0.9% + KCl 20 mEq 20 MEQ/1,000 ML BAG 75 MEQ IV (15:56)
[2025-04-10 16:07] LABS: Alanine Aminotransferase 13 U/L (0-41); Albumin Level 3.7 g/dL (3.5-5.2); Alkaline Phosphatase 73 U/L (40-130); Anion Gap 11.2 (5-19); Aspartate Amino Transferase 12 U/L (0-40); Blood Urea Nitrogen 8 mg/dL (8-23); Calcium 8.1 mg/dL (8.5-10.5); Carbon Dioxide 26 mmol/L (22-29); Chloride 104 mmol/L (98-107); Creatinine Clr Calc Pharmacy 122.8482; Globulin 2.8 g/dL (1.3-4.6); Glucose 110 mg/dL (65-115); Osmolality Calculated 283 mOsm/kg (285-295); Potassium 4.2 mmol/L (3.5-5.1); Sodium 137 mmol/L (136-145); Total Protein 6.5 g/dL (6.6-8.7)
--- NOTE | 2025-04-10 17:48 | P.PN_ITS ---
Subjective 2 Subjective: 64-year-old male states he osito t out to check the propane tanks on his trailer and fell broke his hip laid out for about an hour and slowly crawled back into the building where he called his nephew Ronny who spat out to find and help him patient was found to have left displaced intertrochanteric femur fracture repaired with the trochanteric femur nail by Dr. Abel this morning. Patient states that he had aortic aneurysm surgery 2016 that went bad and had spinal cord ischemia resulting in paraplegia. Since that time he has been on 900 mg of gabapentin 3 times daily and baclofen 20 mg. Patient states that he has seizures if those medications are withheld. He states that gabapentin was withheld in the ER here and he had a seizure got intubated and shipped to [facility]. There were no available ICU beds per documentation from ER doctor that even Vitals/I&O/Wt Last Vital Signs Temp 97.2 F L 04/10/25 16:15 Pulse 54 L 04/10/25 16:15 Resp 16 04/10/25 16:15 BP 157/77 04/10/25 16:15 Pulse Ox 93 04/10/25 16:15 O2 Del Method Room Air 04/10/25 14:33 O2 Flow Rate 8 04/10/25 13:52 04/10/25 04/10/25 04/10/25 05:59 14:59 22:59 Intake Total 1086.25 / 1086.25 Output Total 175 / 175 Balance 911.25 / 911.25 Weight last 48 hrs Weight 68.039 kg Weight 68.039 kg Physical Exam 2 Narrative: General well-developed well-nourished male in no acute cardiopulmonary stress CV regular rate and rhythm with a 3/6 systolic ejection murmur Lungs clear to auscultation bilaterally Abdomen positive bowel tones soft nontender Calves no tenderness cords or pretibial edema Mentation alert and oriented x 3 good historian with strong opinion Urinary Catheter Management: Hanson: Cath Placed During This Visit: no Reason for Continuing Indwelling Catheter: Other Data 04/10/25 15:29 04/10/25 15:29 A&P Assessment and plan 1. Closed fracture of left hip: Status post repair. Was given trexsanemic acid check CBC in a.m. and consider starting DVT prophylaxis at that time 2. Breast mass, left: Follow-up outpatient 3. Tobacco use disorder: Offer nicotine patch 4. Moderate episode of recurrent major depressive disorder: Resume Lexapro 5. Essential hypertension: I resumed verapamil but with hold parameter due to his bradycardia of 54 currently 6. Constipation due to opioid therapy: Patient denies problems that he has to take medication for at home he states he just eats cereal 7. Coronary artery disease due to calcified coronary lesion: No chest pain resume Imdur Zetia PDMP PDMP Reviewed: Not Reviewed Attestations 2 Medical Necessity Statement*: Patient remains in hospital to initiate physical therapy, mobility and and monitor for any perioperative bleeding Coding Level of Care Code 99348 Diagnoses Closed fracture of left hip S72.002A Encounter type: initial encounter Breast mass, left N63.20 Tobacco use disorder F17.200 Moderate episode of recurrent major depressive disorder F33.1 Major depression recurrence: recurrent Active/Remission status: currently active Major depression episode severity: moderate Essential hypertension I10 Constipation due to opioid therapy K59.03; T40.2X5A Coronary artery disease due to calcified coronary lesion I25.10; I25.84 Coronary Disease-Associated Artery/Lesion type: due to calcified coronary lesion Time Spent (min) 35
[2025-04-10] MEDS: mupirocin oint 22 gm 1 APPLIC NASAL (18:17)
[2025-04-10] MEDS: sennosides-docusate Tablet 2 TAB PO (18:19)
[2025-04-10] MEDS: calcium carb-vit d 600mg/400unit 1 Tablet 1 EACH PO (18:19)
[2025-04-11] VITALS (11 sets, daily range): BP systolic 118–145; BP diastolic 64–78; PULSE 56–65; RESP 16–18; TEMP 36.3–37; O2SAT 94–98; BMI 20.5
[2025-04-11] MEDS: oxyCODONE 5 mg IR Tab/Cap PO ×3 (02:09→17:05)
[2025-04-11] MEDS: sodium chlor 0.9% + KCl 20 mEq 20 MEQ/1,000 ML BAG 75 MEQ IV (02:13)
[2025-04-11] MEDS: HYDROmorphone 0.5 MG/0.5 ML INJ 1 MG IVP ×3 (03:12→10:42)
[2025-04-11] MEDS: ceFAZolin 2,000 MG in sodium chloride 0.9% (plus) 50 ML 100 MG IV ×2 (05:19→12:42)
[2025-04-11 05:20] LABS: Hematocrit 33.9 % (37-53); Hemoglobin 11.20 g/dL (11.27-16.99); Mean Corpuscular HGB Conc 33.0 g/dL (30-55); Mean Corpuscular Hemoglobin 30.9 pg (27-33); Mean Corpuscular Volume 93.6 fl (82-101); Nucleated Red Blood Cells % 0 %; Platelet Count 186 10^3/cmm (157-399); Red Blood Count 3.62 10^6/uL (3.85-5.65); White Blood Count 20.43 10^3/uL (3.29-11.43)
[2025-04-11] MEDS: sennosides-docusate Tablet 2 TAB PO ×2 (05:20→17:05)
[2025-04-11] MEDS: ATORVASTATIN 20 MG TABLET PO (05:20)
[2025-04-11] MEDS: multivitamin therapeutic Tablet 1 TAB PO (05:20)
[2025-04-11] MEDS: calcium carb-vit d 600mg/400unit 1 Tablet 1 EACH PO ×2 (05:20→17:05)
[2025-04-11] MEDS: chlorhexidine gluconate 0.12% Btl 473 mL 30 ML MUCOUS MEM ×4 (05:21→22:48)
[2025-04-11] MEDS: lactulose oral liq 20 gm/30 mL UDC 10 GM PO (05:21)
[2025-04-11] MEDS: mupirocin oint 22 gm 1 APPLIC NASAL ×2 (05:21→17:06)
[2025-04-11 05:41] LABS: Anion Gap 10.8 (5-19); Blood Urea Nitrogen 13 mg/dL (8-23); Calcium 8.5 mg/dL (8.5-10.5); Carbon Dioxide 28 mmol/L (22-29); Chloride 105 mmol/L (98-107); Creatinine Clr Calc Pharmacy 169.9152; Glucose 124 mg/dL (65-115); Osmolality Calculated 290 mOsm/kg (285-295); Potassium 4.8 mmol/L (3.5-5.1); Sodium 139 mmol/L (136-145)
[2025-04-11 12:25] LABS: Estmated Average Glucose 103; Hemoglobin A1C 5.2 % (4.0-6.0)
[2025-04-11 12:57] LABS: Iron 25 ug/dL (59-158); Total Iron Binding Capacity 211 mcg/dl; Unsaturated Iron Binding 186 ug/dL (112-347); Vitamin B12 457 pg/mL (232-1245)
[2025-04-11 14:12] LABS: Glucose Urine UA Negative (Normal); Nitrate Urine Negative (Negative); Specific Gravity, Urine 1.012 (1.005-1.030)
[2025-04-11 14:17] LABS: Add Urine Microscopic? YES
--- NOTE | 2025-04-11 14:25 | P.PN_ITS ---
Subjective 2 Subjective: Hospital course, labs appreciated. Patient seen sitting at edge of the bed. States his pain is a lot better. Denies any nausea, vomiting, headache. Vitals/I&O/Wt Last Vital Signs Temp 97.8 F 04/11/25 11:12 Pulse 57 L 04/11/25 11:12 Resp 16 04/11/25 11:12 BP 118/64 04/11/25 11:12 Pulse Ox 98 04/11/25 11:12 O2 Del Method Room Air 04/11/25 11:12 O2 Flow Rate 8 04/10/25 13:52 04/10/25 04/11/25 04/11/25 22:59 06:59 14:59 Intake Total 390 / 1476.25 821.25 / 2297.50 1480 / 1480 Output Total 400 / 575 400 / 975 450 / 450 Balance -. 421.25 / 1322.50 1030 / 1030 Weight last 48 hrs Weight 72.756 kg Weight 68.039 kg Weight 68.039 kg Physical Exam 2 Narrative: General well-developed well-nourished male in no acute cardiopulmonary stress CV regular rate and rhythm with a 3/6 systolic ejection murmur Lungs clear to auscultation bilaterally Abdomen positive bowel tones soft nontender Calves no tenderness cords or pretibial edema Mentation alert and oriented x 3 good historian with strong opinion Urinary Catheter Management: Hanson: Cath Placed During This Visit: no Reason for Continuing Indwelling Catheter: Acute Urinary Retention or Obstruction Data 04/11/25 04:56 04/11/25 04:56 A&P Assessment and plan 1. Closed fracture of left hip: Status post repair. Was given trexsanemic acid check CBC in a.m. and consider starting DVT prophylaxis at that time 2. Breast mass, left: Follow-up outpatient 3. Tobacco use disorder: Offer nicotine patch 4. Moderate episode of recurrent major depressive disorder: Resume Lexapro 5. Essential hypertension: I resumed verapamil but with hold parameter due to his bradycardia of 54 currently 6. Constipation due to opioid therapy: Patient denies problems that he has to take medication for at home he states he just eats cereal 7. Coronary artery disease due to calcified coronary lesion: No chest pain resume Leana Kidd Plan: Plan for today: Continue physical therapy. Monitor hemoglobin. Continue with current pain medication. Continue with oxycodone 5 mg every 6 hours as needed. For now continue with current dose of Dilaudid. Will plan for weaning down in next 24 hours. Continue chronic home medications. Patient does have leukocytosis but does not have any signs of localized infection. UA and chest x-ray negative for concern for infection. Patient has not spiked any fever. Continue to hold off on antibiotics for now. Will check for peripheral smear. On review patient does have leukocytosis in the past as well with white count At baseline around 15-17,000. Goal blood pressure less than 140/90 mmHg. Blood pressure is at goal. Continue with home dose of Imdur, verapamil. Continue with chronic home baclofen as needed and gabapentin. Discharge plan: Plan to discharge to SNF for further rehabitation. Patient is agreeable. Case management working on the same. Patient would most likely need authorization prior to discharge. PDMP PDMP Reviewed: Not Reviewed Attestations 2 Medical Necessity Statement*: Requires further hospitalization for postoperative care, post-ORIF while safe discharge planning is sought Diagnoses Closed fracture of left hip S72.002A Encounter type: initial encounter Breast mass, left N63.20 Tobacco use disorder F17.200 Moderate episode of recurrent major depressive disorder F33.1 Major depression recurrence: recurrent Active/Remission status: currently active Major depression episode severity: moderate Essential hypertension I10 Constipation due to opioid therapy K59.03; T40.2X5A Coronary artery disease due to calcified coronary lesion I25.10; I25.84 Coronary Disease-Associated Artery/Lesion type: due to calcified coronary lesion
[2025-04-11 15:11] LABS: LAB Peripheral Smear Sent for Review
--- NOTE | 2025-04-11 17:05 | P.PN_ITS ---
Subjective 2 Subjective: Patient seen postoperative day 1 left hip trochanteric femur nail. Patient is working with therapy. Pain controlled with medications. Vitals/I&O/Wt Last Vital Signs Temp 97.5 F L 04/12/25 11:22 Pulse 65 04/12/25 11:22 Resp 17 04/12/25 11:22 BP 157/75 04/12/25 11:22 Pulse Ox 97 04/12/25 11:22 O2 Del Method Room Air 04/12/25 11:22 O2 Flow Rate 8 04/10/25 13:52 04/11/25 04/12/25 04/12/25 22:59 06:59 14:59 Intake Total 50 / 1530 1010 / 1010 Output Total 600 / 1050 1000 / 2050 1725 / 1725 Balance -550 / 480 -1000 / -520 -715 / -715 Weight last 48 hrs Weight 161 lb 8 oz Weight 160 lb 6.4 oz Weight 150 lb Physical Exam 2 Narrative: Left hip examination: Dressing on in place, clean dry and intact. No evidence of saturation. Patient has normal postoperative swelling and tenderness to palpation to the hip. Compartments are soft compressible,'s calf soft and nontender. Sensations intact to light touch distally. Distal pulses are palpable. Patient is able to wiggle toes as well as plantarflex and dorsiflex ankle. Patient has negative logroll examination Urinary Catheter Management: Hanson: Cath Placed During This Visit: yes, but has since been removed by the nurse Reason for Continuing Indwelling Catheter: Other Date Urinary Catheter Removed: 04/11/25 Time Urinary Catheter Discontinued: 18:08 Data 04/12/25 04:38 04/12/25 04:38 Other Labs: 04/11/2025 labs: Hemoglobin 11.2, WBC 20.43, creatinine 0.5, sodium 139 Xray Ortho: Radiologist's impression: Patient: Ang Yadav Unit #: [id number] : 1960 Age/Sex: 64 / M ADM Date: 04/10/25 Loc: [facility] Room/Bed: 260-[address]: Adrian Keita MD Ordering Provider/Ordering MD: Pan Santamaria MD Date of Service: 04/10/25 Procedure(s): XR hip LT 2-3V wo/w pel* [id number] Accession Number(s): [id number] Report Number: [id number] WS: [email or web address] Left hip, C-arm fluoroscopy views, 04/10/2025 Clinical Data: LT TFN; OR PICS Comparison: Pelvis and left hip, 04/10/2025 Findings: Dr. Abel reduced the intertrochanteric left hip fracture with an oblique nail in the femoral neck and a proximal intra medullary femoral tamiko. XR/XR hip LT 2-3V wo/w pel* [id number] Impression: Internal fixation of left hip intertrochanteric fracture. Patient: Ang Yadav Unit #: [id number] : 1960 Age/Sex: 64 / M ADM Date: 04/10/25 Loc: [facility] Room/Bed: [facility] Attending Dr: Pan Santamaria MD Ordering Provider/Ordering MD: Nayan Abel Date of Service: 04/10/25 Procedure(s): XR hip LT 2-3V wo/w pel* [id number] Accession Number(s): [id number] Report Number: [id number] PROCEDURE INFORMATION: Exam: XR Left Hip Exam date and time: 04/10/2025 1:51 PM Age: 64 years old Clinical indication: Injury or trauma; Fall; Fracture of pelvis & hip; Left; Traumatic fracture; Neck of femur; Closed fracture; Prior surgery; Surgery date: Post-operative (0-2 days); Surgery type: L hip troch nail; Additional info: Left hip troch nail TECHNIQUE: Imaging protocol: Radiologic exam of the left hip. Views: 2 or 3 views hip with pelvis when performed. COMPARISON: CR XR hip LT 2-3V wo/w pel* [id number] 04/10/2025 7:52 AM FINDINGS: Bones/joints: There has been interval internal fixation of the left intertrochanteric hip fracture. An intact intramedullary tamiko and femoral fixation screw is in place. An intact compression screw traverses the femoral neck. The left intertrochanteric fracture has been reduced. Soft tissues: Postsurgical gas lies in the soft tissues lateral to the left hip. Lateral skin staple line is present. XR/XR hip LT 2-3V wo/w pel* [id number] IMPRESSION: Status post internal fixation of left intertrochanteric hip fracture. A&P Assessment and plan 1. Closed fracture of left hip: Plan: Weightbearing as tolerated left lower extremity Complete?postoperative antibiotics Complete?postoperative TXA X-rays reviewed,?demonstrate stable left hip trochanteric femur nail Resume regular diet Pain control PT/OT DVT prophylaxis?per primary Labs reviewed Change dressing as needed if saturated Ice and elevate as needed for pain and swelling Antinausea medication as needed Ortho will continue to follow Case management for discharge planning PDMP PDMP Reviewed: Not Reviewed Attestations 2 Medical Necessity Statement*: Ongoing care status post left hip trochanteric femur nail for left hip intertrochanteric femur fracture, continued hospitalization per primary Coding Level of Care Code Acute Code for Chg Fwd Diagnoses Closed fracture of left hip S72.002A Time Spent (min) 10
[2025-04-11] MEDS: HYDROmorphone 0.5 MG/0.5 ML INJ IVP ×2 (18:23→22:47)
[2025-04-12] VITALS (8 sets, daily range): BP systolic 123–180; BP diastolic 53–85; PULSE 61–71; RESP 16–18; TEMP 36.4–37.1; O2SAT 93–97
[2025-04-12] MEDS: HYDROmorphone 0.5 MG/0.5 ML INJ IVP ×2 (05:00→16:01)
[2025-04-12] MEDS: sennosides-docusate Tablet 2 TAB PO (05:02)
[2025-04-12] MEDS: lactulose oral liq 20 gm/30 mL UDC 10 GM PO (05:02)
[2025-04-12] MEDS: chlorhexidine gluconate 0.12% Btl 473 mL 30 ML MUCOUS MEM ×2 (05:03→10:46)
[2025-04-12] MEDS: calcium carb-vit d 600mg/400unit 1 Tablet 1 EACH PO (05:03)
[2025-04-12] MEDS: ATORVASTATIN 20 MG TABLET PO (05:03)
[2025-04-12] MEDS: multivitamin therapeutic Tablet 1 TAB PO (05:03)
[2025-04-12] MEDS: mupirocin oint 22 gm 1 APPLIC NASAL (05:03)
[2025-04-12 05:17] LABS: Hematocrit 31.0 % (37-53); Hemoglobin 10.20 g/dL (11.27-16.99); Mean Corpuscular HGB Conc 32.9 g/dL (30-55); Mean Corpuscular Hemoglobin 30.8 pg (27-33); Mean Corpuscular Volume 93.7 fl (82-101); Nucleated Red Blood Cells % 0 %; Platelet Count 181 10^3/cmm (157-399); Red Blood Count 3.31 10^6/uL (3.85-5.65); White Blood Count 15.73 10^3/uL (3.29-11.43)
[2025-04-12 05:38] LABS: Alanine Aminotransferase 9 U/L (0-41); Albumin Level 3.4 g/dL (3.5-5.2); Alkaline Phosphatase 59 U/L (40-130); Anion Gap 12.9 (5-19); Aspartate Amino Transferase 12 U/L (0-40); Blood Urea Nitrogen 10 mg/dL (8-23); Calcium 8.3 mg/dL (8.5-10.5); Carbon Dioxide 28 mmol/L (22-29); Chloride 104 mmol/L (98-107); Creatinine Clr Calc Pharmacy 141.9564; Globulin 2.8 g/dL (1.3-4.6); Glucose 91 mg/dL (65-115); Osmolality Calculated 291 mOsm/kg (285-295); Potassium 3.9 mmol/L (3.5-5.1); Sodium 141 mmol/L (136-145); Total Protein 6.2 g/dL (6.6-8.7)
[2025-04-12 05:39] LABS: Magnesium 2.1 mg/dL (1.7-2.3)
[2025-04-12] MEDS: oxyCODONE 5 mg IR Tab/Cap PO (08:25)
--- NOTE | 2025-04-12 09:11 | P.DS_ITS ---
Discharge Providers Date of Admission: 04/10/25 04:28 Date of Discharge: April 12, 2025 Attending Provider at Admission: Christine Vivar MD Attending Provider at Discharge: Adrian Keita MD Consults: Orthopedics: Dr. Abel Primary Care Provider: Rey Maria MD Diagnoses at Discharge Discharge Diagnosis 1. Closed fracture of left hip: 2. Breast mass, left: 3. Tobacco use disorder: 4. Moderate episode of recurrent major depressive disorder: 5. Essential hypertension: 6. Constipation due to opioid therapy: 7. Coronary artery disease due to calcified coronary lesion: Reason for Visit Reason for Visit: FALL Brief History: Per HPI Ang Yadav is a 64 year old male with multiple medical problem who had just sustained a ground-level mechanical fall trying to get to his propane tank now fracturing left hip. Orthopedics has been consulted with Dr. Abel from the emergency room for a repair of this left hip. Patient is a full code 64-year-old male. Patient had been made n.p.o. at this time except meds. Pain medication provided patient has shown significant constipation in the hemicolon a CT of the pelvic finding and care had been initiated for that. Patient is opioid dependence that morphine 4 mg is not touching his pain. I have changed at least at this time for an acute pain management for 1 mg Dilaudid every 3 hours as needed. Patient in ED room 6 and n.p.o. except for meds and aids medically cleared for surgery. No chest pain no shortness of breath no acute infiltrate in the chest x-ray. Patient's clearance for surgery is to low intermediate risks for dying on the table from vascular event. Hospital Course Hospital Course Patient was admitted to the hospital for further evaluation and management close stable fracture post fall. Orthopedics was consulted and he underwent ORIF on 04/10. His hospitalization was complicated by him having significant pain. Patient does follow-up with pain management team as an outpatient. He worked well with physical therapy. He does have leukocytosis though does not have any source of infection. UTI and pneumonia has been ruled out. On review of chart it seems patient does have chronic leukocytosis with baseline white count being 13-17,000. He has been discharged from [facility] in stable condition to SNF for further rehabitation. Physical Exam Narrative: General well-developed well-nourished male in no acute cardiopulmonary stress CV regular rate and rhythm with a 3/6 systolic ejection murmur Lungs clear to auscultation bilaterally Abdomen positive bowel tones soft nontender Calves no tenderness cords or pretibial edema Mentation alert and oriented x 3 good historian with strong opinion Urinary Catheter Management: Hanson: Cath Placed During This Visit: yes, but has since been removed by the nurse Reason for Continuing Indwelling Catheter: Other Date Urinary Catheter Removed: 04/11/25 Time Urinary Catheter Discontinued: 18:08 Discharge Data Studies Completed and Pending Completed Studies During Hospitalization Category Date Time Status CT pelvis wo bone [CT bony pelvis [id number]] Stat Cat Scan 04/10/25 03:02 Completed XR chest 1V portable [id number] Stat Exams 04/10/25 03:38 Completed XR femur LT min 2V* [id number] Stat Exams 04/10/25 07:50 Completed XR hip LT 2-3V wo/w pel* [id number] Routine Exams 04/10/25 12:00 Completed XR hip LT 2-3V wo/w pel* [id number] Routine Exams 04/10/25 13:14 Completed XR hip LT 2-3V wo/w pel* [id number] Stat Exams 04/10/25 07:50 Completed Pending at discharge Category Date Time Status Complete Blood Count w/Auto AM LABS Lab 04/13/25 04:00 Ordered MAG [Magnesium] AM LABS Lab 04/13/25 04:00 Ordered MAG [Magnesium] AM LABS Lab 04/14/25 04:00 Ordered Radiology Impressions Pelvis CT 04/10/25 03:02 IMPRESSION: 1. Slightly angulated intertrochanteric fracture of the left hip. 2. Constipation of the right hemicolon. Chest X-Ray 04/10/25 03:38 IMPRESSION: Hyperinflated chest suggesting underlying COPD. No acute infiltrates identified. Femur X-Ray 04/10/25 07:50 PROCEDURE INFORMATION: Exam: XR Left Femur Exam date and time: 04/10/2025 7:52 AM Age: 64 years old Clinical indication: Injury or trauma; Fall; Blunt trauma; Thigh or upper leg; Left; Additional info: Left hip FX TECHNIQUE: Imaging protocol: Radiologic exam of the left femur. Views: 2 views. COMPARISON: 1. CT angio abd aorta runof [id number] 08/21/2022 2:[address] bony pelvis [id number] 04/10/2025 4:16 AM FINDINGS/IMPRESSION: Bones/joints: Again noted is a comminuted, intertrochanteric fracture of the left hip. The left femoral head articulates normally with the acetabulum. The mid and distal left femur are intact. The left-sided pubic rami are intact. Soft tissues: No radiopaque foreign body or gas in the soft tissues. Vasculature: There are multifocal calcified plaques projecting over the left femoral artery and left popliteal artery. Hip/Pelvis X-Ray 04/10/25 13:14 IMPRESSION: Status post internal fixation of left intertrochanteric hip fracture. Laboratory Results WBC 15.73 10^3/uL (3.29-11.43) H 04/12/25 04:38 Corrected WBC Cancelled 04/10/25 15:29 RBC 3.31 10^6/uL (3.85-5.65) L 04/12/25 04:38 Hgb 10.20 g/dL (11.27-16.99) L 04/12/25 04:38 Hct 31.0 % (37-53) L 04/12/25 04:38 MCV 93.7 fl (82-101) 04/12/25 04:38 MCH 30.8 pg (27-33) 04/12/25 04:38 MCHC 32.9 g/dL (30-55) 04/12/25 04:38 RDW 14.3 % (12.1-15.1) 04/12/25 04:38 Plt Count 181 10^3/cmm (157-399) 04/12/25 04:38 MPV 11.1 fL (7.4-10.4) H 04/12/25 04:38 Gran % Cancelled 04/10/25 15:29 Neut % (Auto) 60.9 % 04/12/25 04:38 Lymph % (Auto) 27.3 % 04/12/25 04:38 Simpson % (Auto) 9.6 % 04/12/25 04:38 Eos % (Auto) 1.5 % 04/12/25 04:38 Baso % (Auto) 0.3 % 04/12/25 04:38 Neut # (Auto) 9.58 10^3/uL (1.8-7.7) H 04/12/25 04:38 Lymph # (Auto) 4.3 10^3/uL (0.8-4.8) 04/12/25 04:38 Simpson # (Auto) 1.5 10^3/uL (0.2-0.9) H 04/12/25 04:38 Eos # (Auto) 0.2 10^3/uL (0.0-0.8) 04/12/25 04:38 Baso # (Auto) 0.1 10^3/uL (0.0-0.1) 04/12/25 04:38 Absolute Gran (auto) Cancelled 04/10/25 15:29 Nucleated RBC % (auto) 0 % 04/12/25 04:38 Nucleated RBCs # 0.0 /100WBC 04/12/25 04:38 Peripher Smr Path Cons Sent for review 04/11/25 04:56 PT 14.20 SECONDS (12.1-14.9) 04/10/25 02:49 INR 1.02 (0.8-1.2) 04/10/25 02:49 APTT 32.4 SECONDS (23.9-36.7) 04/10/25 02:49 Sodium 141 mmol/L (136-145) 04/12/25 04:38 Potassium 3.9 mmol/L (3.5-5.1) 04/12/25 04:38 Chloride 104 mmol/L (98-107) 04/12/25 04:38 Carbon Dioxide 28 mmol/L (22-29) 04/12/25 04:38 Anion Gap 12.9 (5-19) 04/12/25 04:38 BUN 10 mg/dL (8-23) 04/12/25 04:38 Creatinine 0.6 mg/dL (0.7-1.2) L 04/12/25 04:38 GFR Calculation 136.5 mL/min (90-130) H 04/12/25 04:38 Glucose 91 mg/dL (65-115) 04/12/25 04:38 Estimat Average Glucose 103 04/11/25 04:56 Hemoglobin A1c 5.2 % (4.0-6.0) 04/11/25 04:56 Calculated Osmolality 291 mOsm/kg (285-295) 04/12/25 04:38 Calcium 8.3 mg/dL (8.5-10.5) L 04/12/25 04:38 Phosphorus 3.6 mg/dL (2.5-4.5) 04/10/25 02:49 Magnesium 2.1 mg/dL (1.7-2.3) 04/12/25 04:38 Iron 25 ug/dL (59-158) L 04/11/25 04:56 TIBC 211 mcg/dl 04/11/25 04:56 % Saturation 11.8 % (20-50) L 04/11/25 04:56 Unsat Iron Binding 186 ug/dL (112-347) 04/11/25 04:56 Total Bilirubin 0.5 mg/dL (0.15-1.2) 04/12/25 04:38 AST 12 U/L (0-40) 04/12/25 04:38 ALT 9 U/L (0-41) 04/12/25 04:38 Alkaline Phosphatase 59 U/L (40-130) 04/12/25 04:38 Total Protein 6.2 g/dL (6.6-8.7) L 04/12/25 04:38 Albumin 3.4 g/dL (3.5-5.2) L 04/12/25 04:38 Globulin 2.8 g/dL (1.3-4.6) 04/12/25 04:38 Vitamin B12 457 pg/mL (232-1245) 04/11/25 04:56 Folate > 20.0 ng/mL (4.5-32.2) 04/12/25 04:38 Urine Color Yellow (Yellow) 04/11/25 13:25 Urine Appearance Clear (CLEAR) 04/11/25 13:25 Urine pH 7.5 (5-7) 04/11/25 13:25 Ur Specific Andrew 1.012 (1.005-1.030) 04/11/25 13:25 Urine Protein Negative (Negative) 04/11/25 13:25 Urine Glucose (UA) Negative (Normal) 04/11/25 13:25 Urine Ketones Negative (Negative) 04/11/25 13:25 Urine Blood Negative (Negative) 04/11/25 13:25 Urine Nitrate Negative (Negative) 04/11/25 13:25 Urine Bilirubin Negative (Negative) 04/11/25 13:25 Urine Urobilinogen 0.2 mg/dL (Negative) 04/11/25 13:25 Ur Leukocyte Esterase Negative (Negative) 04/11/25 13:25 Urine RBC 0-2 /hpf (0-2) 04/11/25 13:25 Urine WBC 0-5 /hpf (0-5) 04/11/25 13:25 Ur Squamous Epith Cells 0-5 /hpf (0-5) 04/11/25 13:25 Amorphous Sediment Not Reportable 04/11/25 13:25 Urine Bacteria None seen /hpf (NONE) 04/11/25 13:25 Hyaline Casts 0-4 /lpf H 04/11/25 13:25 Blood Type A Positive 04/10/25 15:29 Rho(D) Type Rh positive 04/10/25 15:29 Antibody Screen Negative 04/10/25 15:29 Vitals Last Vital Signs Temp 97.6 F 04/12/25 07:49 Pulse 61 04/12/25 08:55 Resp 18 04/12/25 08:55 BP 180/85 04/12/25 07:49 Pulse Ox 97 04/12/25 08:55 O2 Del Method Room Air 04/12/25 08:55 O2 Flow Rate 8 04/10/25 13:52 Discharge Plan Discharge Patient Disposition: Xfer SNF Condition: Stable Prescriptions: New calcium carbonate-vitamin D3 600 mg-10 mcg (400 unit) Tablet 1 tab PO BID Qty: 60 0RF Eliquis 2.5 mg tablet 2.5 mg PO BID 30 Days Qty: 60 0RF Continued escitalopram oxalate 20 mg tablet 20 mg PO DAILY Qty: 90 1RF atorvastatin 20 mg tablet 20 mg PO DAILY Qty: 90 3RF ezetimibe 10 mg tablet 10 mg PO DAILY Qty: 90 3RF isosorbide mononitrate 30 mg tablet extended release 24 hr 30 mg PO DAILY Qty: 90 3RF nitroglycerin 0.4 mg tablet, sublingual 0.4 mg sublingual Q5M PRN (Reason: chest pain) Qty: 25 2RF Rx Instructions: do not exceed 3 doses per episode oxycodone 15 mg tablet 15 mg PO QID gabapentin 600 mg tablet 600 mg PO TID Rx Instructions: along with 300mg em=226hm total baclofen 20 mg tablet 20 mg PO TID PRN (Reason: Back Pain) sennosides-docusate sodium [Senna with Docusate Sodium] 8.6-50 mg tablet 1 tab PO BID verapamil 180 mg tablet extended release 180 mg PO DAILY tamsulosin 0.4 mg capsule 0.4 mg PO DAILY pantoprazole 40 mg tablet,delayed release (DR/EC) 40 mg PO DAILY gabapentin 300 mg capsule 300 mg PO TID Rx Instructions: along with 600mg nx=184tw total albuterol sulfate 90 mcg/actuation HFA aerosol inhaler 2 puff inhalation QID PRN (Reason: Shortness Of Breath Or Wheezing) Referrals: [facility] [Outside] Nayan Abel DO [Physician, Orthopedics] - 04/26/25 3:00 pm Rey Maria MD [Primary Care Provider, Family Practice] Discharge Diet: Regular Discharge Activity: Limit activity as instructed Patient Instructions: Acute Wound Care (DC), Opioid Safety, Post Anesthesia Care, Pain Management, Patient Portal & Bam Instructions Activity Restrictions/Additional Instructions: Orthopedic discharge instructions: Weightbearing as tolerated to the operative extremity Ice as needed for pain and swelling Encourage knee and hip range of motion as tolerated PT/OT Take pain medication as prescribed Take antinausea medication as needed Supplement with Citracal vitamin D for bone health and healing Take Lovenox (blood thinner) as prescribed for blood clot prevention Take Colace as needed for constipation Leave Silverlon dressings on and in place for 7 days. After this they may be removed you may shower/rinse incisions with warm soapy water, pat dry redress with a dry dressing. Okay to sponge bath/shower with Silverlon dressings as they should be waterproof however if they do get saturated or wet please take these off dry the incision and redressed with a new dry sterile bandage. Follow-up in the orthopedic office with Dr. Abel in 2 weeks for repeat x-rays and incision check/staple removal Contact the office for any questions or concerns (i.e. increasing redness and drainage around the incision, fevers, or chills, or severe worsening in pain/change in symptoms) Internal medicine discharge instruction Take Eliquis 2.5 mg twice daily which is a blood thinner for next 1 month. Check your blood pressures daily and maintain a blood pressure diary. Goal blood pressure is less than 140/90 mmHg. If persistently high antihypertensive should be adjusted. Discharge Attestations Time Spent in Discharge Care*: greater than 30 min Specific Discharge Activities: educating patient, educating and/or supporting family/caregiver, discussing with pcp/other providers, discussing with case manager specialist/social workers/dc planners, documenting/other paperwork and evaluating patient/reviewing data Status at Discharge: Cognitive status at discharge: cognitively intact , Behavioral status at discharge: cooperative , Functional status at discharge: uses cane/walker , Overall status at discharge: patient is progressing back to baseline Quality Metrics Clinical Quality Measures [ No reported AMI, CVA or VTE this stay] Coding Level of Care Code 44839 Total time (in minutes) for Discharge: 65 Diagnoses Closed fracture of left hip S72.002A Encounter type: initial encounter Breast mass, left N63.20 Tobacco use disorder F17.200 Moderate episode of recurrent major depressive disorder F33.1 Active/Remission status: currently active Major depression episode severity: moderate Major depression recurrence: recurrent Essential hypertension I10 Constipation due to opioid therapy K59.03; T40.2X5A Coronary artery disease due to calcified coronary lesion I25.10; I25.84 Coronary Disease-Associated Artery/Lesion type: due to calcified coronary lesion
[2025-04-12] MEDS: oxyCODONE 5 mg IR Tab/Cap 15 MG PO (10:46)
--- NOTE | 2025-04-12 11:28 | PC.OT ---
OT TREATMENT HELD TODAY DUE TO SCHEDULED D/C FROM HOSPITAL
--- NOTE | 2025-04-12 13:04 | P.PN_ITS ---
Subjective 2 Subjective: Patient postoperative to left hip trochanteric femur nail recovering well planning on discharge to rehab facility today. Vitals/I&O/Wt Last Vital Signs Temp 97.5 F L 04/12/25 11:22 Pulse 65 04/12/25 11:22 Resp 17 04/12/25 11:22 BP 157/75 04/12/25 11:22 Pulse Ox 97 04/12/25 11:22 O2 Del Method Room Air 04/12/25 11:22 O2 Flow Rate 8 04/10/25 13:52 04/11/25 04/12/25 04/12/25 22:59 06:59 14:59 Intake Total 50 / 1530 1010 / 1010 Output Total 600 / 1050 1000 / 2050 1725 / 1725 Balance -550 / 480 -1000 / -520 -715 / -715 Weight last 48 hrs Weight 161 lb 8 oz Weight 160 lb 6.4 oz Weight 150 lb Physical Exam 2 Narrative: Left hip examination: Dressing on in place, clean dry and intact. No evidence of saturation. Patient has normal postoperative swelling and tenderness to palpation to the hip. Compartments are soft compressible,'s calf soft and nontender. Sensations intact to light touch distally. Distal pulses are palpable. Patient is able to wiggle toes as well as plantarflex and dorsiflex ankle. Patient has negative logroll examination Urinary Catheter Management: Hanson: Cath Placed During This Visit: yes, but has since been removed by the nurse Reason for Continuing Indwelling Catheter: Other Date Urinary Catheter Removed: 04/11/25 Time Urinary Catheter Discontinued: 18:08 Data 04/12/25 04:38 04/12/25 04:38 A&P Assessment and plan 1. Closed fracture of left hip: Plan: Weightbearing as tolerated left lower extremity Complete?postoperative antibiotics Complete?postoperative TXA X-rays reviewed,?demonstrate stable left hip trochanteric femur nail Resume regular diet Pain control PT/OT DVT prophylaxis?per primary Labs reviewed Change dressing as needed if saturated Ice and elevate as needed for pain and swelling Antinausea medication as needed Case management for discharge planning Patient stable for discharge from orthopedic standpoint Patient orthopedic surgery team will sign off patient at this time follow peripherally if there is any question pertaining patient care for for contact orthopedics on-call.? Discharge instructions as well as discharge medications are in patient's chart.? Patient will follow-up with us in the office in 2 weeks.? Patient understands agrees with current plan.? Questions answered. PDMP PDMP Reviewed: Not Reviewed Attestations 2 Medical Necessity Statement*: Per primary Coding Level of Care Code Acute Code for Chg Fwd Diagnoses Closed fracture of left hip S72.002A Time Spent (min) 10
--- NOTE | 2025-04-12 14:20 | PC.NURSE ---
pt will be discharged to [facility]. Report was called to [facility]. Transportation set up for 1500pm
== END 2025-04-12 15:45 | disposition skilled nursing facility (03) | DRG 481 ==
LOC: ER 04:38 → ER IP 05:56 → ICU 08:13 → MEDSURG 10:44
PROVIDERS: Internal Medicine; Physician Assistant; Student in an Organized Health Care Education/Training Program; Admitting Provider Internal Medicine; Emergency Provider Emergency Medicine; PCP Family Medicine; Visit Provider Student in an Organized Health Care Education/Training Program
PROC: 0QSC04Z Reposition Left Lower Femur with Internal Fixation Device, Open Approach (ICD-10-PCS; CPT 27245; principal; 2025-04-10 11:10)
DX: S72.142A Displaced intertrochanteric fracture of left femur, initial encounter for closed fracture (principal); F11.20 Opioid dependence, uncomplicated; F33.1 Major depressive disorder, recurrent, moderate; I25.10 Atherosclerotic heart disease of native coronary artery without angina pectoris; E78.2 Mixed hyperlipidemia; E87.6 Hypokalemia; N63.20 Unspecified lump in the left breast, unspecified quadrant; F17.218 Nicotine dependence, cigarettes, with other nicotine-induced disorders; I10 Essential (primary) hypertension; K59.03 Drug induced constipation; T40.2X5A Adverse effect of other opioids, initial encounter; Y92.028 Other place in mobile home as the place of occurrence of the external cause; W01.0XXA Fall on same level from slipping, tripping and stumbling without subsequent striking against object, initial encounter; I25.84 Coronary atherosclerosis due to calcified coronary lesion; D72.829 Elevated white blood cell count, unspecified; N62 Hypertrophy of breast
CPT/HCPCS: 36415; 51702; 71045; 72192; 73502; 73552; 76000; 80048; 80053; 80503; 81001; 82607; 82746; 83036; 83540; 83550; 83735; 84100; 85025; 85610; 85730; 86850; 86900; 93005; 94640; 96365; 96366; 96372; 96375; 97110; 97161; 97167; 97530; 99285; C1713; J0131; J0690; J1100; J1171; J1650; J1885; J2270; J2405; J2704; J3010; J3480; J3490; J7030; J7613; J9999

== ENCOUNTER 2025-04-20 13:02 | Emergency (ER) | payer MEDICARE, SELFPAY ==
[2025-04-20 13:03] VITALS: BP 132/81; PULSE 91; RESP 18; TEMP 36.7; O2SAT 94
--- NOTE | 2025-04-20 13:05 | XR_ITS ---
WS: [email or web address] Exam: XR femur LT min 2V* [id number] Date/Time of Exam: 04/20/2025 1:07 PM Reason For Exam: pain Compared to left hip radiographs 04/10/2025. There is an intertrochanteric fracture of the LEFT hip stabilized with internal fixation and anatomic alignment for healing. No change. Lateral surgical skin clips. The remainder of the femur is intact. Vascular calcifications in the medial soft tissues. XR/XR femur LT min 2V* [id number] IMPRESSION: 1. Nondisplaced hip fracture with internal fixation stable in appearance. The r emainder of the femur is intact.
--- NOTE | 2025-04-20 13:05 | XR_ITS ---
WS: [email or web address] Exam: XR hip LT 2-3V wo/w pel* [id number] Date/Time of Exam: 04/20/2025 1:08 PM Reason For Exam: left hip pain. with pelvis Comparison 04/10/2025. Intertrochanteric fracture of the LEFT hip is stabilized with internal fixation. Alignment is anatomic for healing and unchanged. Lateral surgical skin clips. Normal soft tissues. XR/XR hip LT 2-3V wo/w pel* [id number] IMPRESSION: 1. Nondisplaced left hip fracture with internal fixation. Stable.
--- NOTE | 2025-04-20 13:05 | XR_ITS ---
WS: [email or web address] Exam: XR knee LT 3V* [id number] Date/Time of Exam: 04/20/2025 1:08 PM Reason For Exam: pain No fracture. Minimal tricompartmental DJD. Joint effusion in the suprapatellar bursa. Osteopenia. XR/XR knee LT 3V* [id number] IMPRESSION: 1. Mild DJD and joint effusion. Osteopenia.
--- OUTSIDE RECORDS SUMMARY | 2025-04-20 13:08 | XMS_ITS | Clinical Summary ---
Author Organization [facility] Jose L cheung [place] Address [address] [place] [address] Phone Care Team Providers Care Building Construction Supervisor Name Role Phone Unavailable Primary Care Provider Unavailabl e Allergies Active Allergy Reactions Criticality Noted Date [...] 3 times daily. 90 Tablet 2 02/25/20 Active Additional Information Patient not taking.Reported on [...] Encounters Date Type Department Care Team Description 04/18/[address] [place] [phone] Rajesh Soria MD Primary Care Outreach 03/30/2025 External Device Data [facility] ABSTRACTION Provider, [...] Sex Assigned at Male 05/18/2024 5:16 PM AUTO TECHNICIAN MECHANIC Legal Sex Male 10:06 AM CDT Gender Identity Male 05/18/2024 5:16 PM AUTO TECHNICIAN MECHANIC Sexual Orientation Straight 05/18/2024 5: 16 PM AUTO TECHNICIAN MECHANIC Last Filed Vital Signs Vital Sign Reading Time Taken Comments Blood Pressure 102/52 07/02/2024 1:46 PM AUTO TECHNICIAN MECHANIC Pulse 71 07/02/2024 1:46 PM AUTO TECHNICIAN MECHANIC Temperature 36.2 C (97.1 F) 05/31/2024 11:41 AM AUTO TECHNICIAN MECHANIC Respiratory Rate 18 05/31/2024 11:41 AM AUTO TECHNICIAN MECHANIC Oxygen Saturation 95% 07/02/2024 1:46 PM AUTO TECHNICIAN MECHANIC Inhaled Oxygen Concentration - - Weight 68.9 kg (152 lb) 07/02/2024 1:46 PM AUTO TECHNICIAN MECHANIC Height 185.4 cm (6' 1 ) 07/02/2024 1:46 PM AUTO TECHNICIAN MECHANIC Body Mass Index 20.05 07/02/2024 1:46 PM AUTO TECHNICIAN MECHANIC Plan of Treatment Health Maintenance Due Date Last Done Comments DTAP/TDAP/TD VACCINES (1 - Tdap) 1981 06/09/18 COLORECTAL SCREENING 2007 Colorectal Cancer Screening 2007 FIT-DNA Q 3 years 2007 FIT/FOBT Q 1 year 2007 Flex Sig/CT Colonography Q 5 years 2007 RSV VACCINE (60+ or ) (1 - Risk 50-74 years 1-dose series) 2012 ZOSTER VACCINE (1 of 2) 2012 INFLUENZA VACCINE (#1) 2025 02/23/2024 Insurance [facility] [id number]
--- OUTSIDE RECORDS SUMMARY | 2025-04-20 13:08 | XMS_ITS | Data Portability ---
Author Organization [facility] Nancy Kay, [facility] Address [address] [address] Assessment No assessment recorded. Plan of Treatment Reminders Order Date Submit Date Provider Last Modified By Organization Details Last Modified Time Details Appointments None record ed. Lab None record ed. Referral None record ed. Procedures None record ed. Surgeries None record ed. Imaging None record ed. Medication Orders None record ed. Patient TargetsNo targets recorded. Patient Instructions Encounter Date Encounter Id Patient Instructions Last Modified By Organization Details Last Modified Time 04/13/2025 [id number] Records reviewed . Fall resulted in hip fracture requiring surgical intervention. On Eli for DVT prophylaxis. Post-op hemoglobin 10. Labs on Friday. [email or web address] Not available 04/13/2025 14:06:08 Reason for Referral None Reported. Problems Name Problem SNOMED Code Status Onset Date Resolution Date Notes Provider Name and Address Organization Details Recorded Time Post-disch arge follow-up 086288338 [facility] [address] [facility] Closed fracture of hip 318142947 [facility] [address] [facility] Mass of left breast 8295905610981 9103 Active [address] [facility] Major depressive disorder 405770684 Active [address] [facility] [facility] 11/05[facility]202 5 14:05:01 Essential hypertensi on 50775942 [facility] 14:05[facility]02 Therapeuti c opioid induced constipati on 9768150330634 02 Active 2024 JANETTE schulz, [facility] 5 14:05:03 Coronary arterioscl erosis 85434269 Active [facility] 14:05:05 Chronic pain 90186754 Active 2024 [facility] 14:05:06 Problem Notes None recorded. Medical Equipment None Reported. Medications Name Sig Start Date Stop Date Status Note LastModified by Organization Details LastModified Time amoxicillin 500 mg capsule take 1 capsule BY MOUTH EVERY 6 HOURS UNTIL GONE 04/13 completed Not Available Not Available Not Available gabapentin 600 mg tablet TAKE 1 TABLET BY MOUTH THREE TIMES DAILY active Not Available Not Available No t Available atorvastati n 20 mg tablet TAKE 1 TABLET BY MOUTH EVERY DAY active Not Available Not Available No t Available tizanidine 4 mg tablet TAKE 2 TABLETS BY MOUTH THREE TIMES DAILY FOR 30 DAYS active Not Available Not Available No t Available prednisone 20 mg tablet TAKE 3 TABLETS BY MOUTH EVERY DAY FOR THREE DAYS, THEN TWO EVERY DAY FOR TWO DAYS, THEN ONE EVERY DAY FOR TWO DAYS active Not Available Not Available No t Available isosorbide mononitrate ER 30 mg tablet,exte nded release 24 hr TAKE 1 TABLET BY MOUTH EVERY DAY active Not Available Not Available No t Available verapamil ER (SR) 180 mg tablet,exte nded release TAKE 1 TABLET BY MOUTH EVERY DAY active Not Available Not Available No t Available oxycodone 15 mg tablet Take 1 tablet every 6 hours by oral route as needed for 30 days. 2024 active Not Available Not Available Not Avai lable baclofen 20 mg tablet TAKE 1 TABLET BY MOUTH THREE TIMES DAILY NEEDED active Not Available Not Available No t Available tamsulosin 0.4 mg capsule take 1 capsule BY MOUTH EVERY DAY active Not Available Not Available No t Available cephalexin 500 mg capsule take 1 capsule BY MOUTH THREE TIMES DAILY for 10 days 04/13 completed Not Available Not Available Not Available pantoprazol e 40 mg tablet,coretta yed release TAKE 1 TABLET BY MOUTH EVERY DAY active Not Available Not Available No t Available lisinopril 10 mg tablet TAKE 1 TABLET BY MOUTH EVERY DAY active Not Available Not Available No t Available prednisone 50 mg tablet TAKE 1 TABLET BY MOUTH 13 hours, SEVEN hours and ONE hour before contrast administr ation active Not Available Not Available No t Available nitroglycer in 0.4 mg sublingual tablet DISSOLVE 1 TABLET UNDER THE TONGUE EVERY 5 MINUTES NEEDED FOR CHEST PAIN. DO NOT EXCEED A TOTAL OF 3 DOSES IN 15 MINUTES. active Not Available Not Available No t Available gabapentin 300 mg capsule TAKE 3 CAPSULES BY MOUTH THREE TIMES DAILY active Not Available Not Available No t Available albuterol sulfate HFA 90 mcg/actuati on aerosol inhaler INHALE TWO PUFFS FOUR TIMES DAILY NEEDED FOR SHORTNESS OF BREATH or wheezing active Not Available Not Available No t Available escitalopra m 10 mg tablet TAKE 1 TABLET BY MOUTH EVERY DAY active Not Available Not Available No t Available escitalopra m 20 mg tablet TAKE 1 TABLET BY MOUTH DAILY active Not Available Not Available No t Available ezetimibe 10 mg tablet TAKE 1 TABLET BY MOUTH EVERY DAY active Not Available Not Available No t Available Stool Softener-La xative 8.6 mg-50 mg tablet TAKE 1 TABLET BY MOUTH TWICE DAILY active Not Available Not Available No t Available chlorhexidi ne gluconate 0.12 % mouthwash RINSE with 15ml TWICE DAILY FOR 30 seconds. DO not eat, drink or RINSE FOR 30 minutes AFTER USE active Not Available Not Available No t Available baclofen 5 mg tablet TAKE 1 TABLET BY MOUTH THREE TIMES DAILY NEEDED active Not Available Not Available No t Available Vitals Date Recorded Heart rate Respiratory rate Body temperature Oxygen saturation Oxygen saturation in Arterial blood by Pulse oximetry Systolic And Diastolic Provider Name and Address Organization Details Last Updated DateTime 5 71 /min 18 /min 97.6 [degF] 97 % 97 % 167/102 mm[Hg] JANETTE MORAES [facility], [facility] 5 14:01:24 Date Recorded Body weight Heart rate Respiratory rate Body temperature Oxygen saturation Oxygen saturation in Arterial blood by Pulse oximetry Systolic And Diastolic Provider Name and Address Organization Details Last Updated DateTime 5 84168.8 9 g 73 /min 20 /min 97.6 [degF] 95 % 95 % 137/62 mm[Hg] JANETTE MORAES [facility] 5 16:21:10 Social History None recorded. Functional Status None recorded. Mental Status None recorded. Family History Nothing Reported. Medical History No medical history recorded. Immunizations Vaccine Type Date Status Note Provider Nam e and Address Organization Details Recorded Time pneumococcal polysaccharide PPV23 7 completed Not Available [facility] 04/18/2025 14:32:53 COVID-19, mRNA, LNP-S, PF, 100 mcg/0.5mL dose or 50 mcg/0.25mL dose 1 completed Not Available [facility] 04/18/2025 14:32:53 Past Encounters Encounter ID Performer Location Encounter Start Date Encounter Closed Date Diagnosis/Indication Diagnosis SNOMED-CT Code Diagnosis ICD10 Code Diagnosis IMO Codes Diagnosis Note [id number] Kishore Barrios DO [facility] ([facility]) [address] [place] [address] 04/13/2025 11:36:14 04/15/2025 17:11:40 Post-discharge follow-up 166670898 Z09 852808 Closed fra cture of hip 026454393 S72.002S 1236200 Mass of left breast 1224 582817 2877021 N63.20 2955598368 Major depr essive disorder 818816447 F32.9 7921565200 Essential hypertension 45790226 I10 35939 Therapeuti c opioid induced constipation 1370388271 85389 K59.03 T40.2X5A 41180004 Coronary arteriosclerosis 05394977 I25.10 8438767689 Chronic pain 67122267 G8 9.29 328467 Health Concerns Section Related Observation LastModified by Organization Detai ls LastModified Time None Recorded Concern Status LastModified by Organization Details LastModified Time None Recorded Advance Directives Directive None Recorded Payers Insurance Date Sequence Insurance Name Policy Number Policy Townsend Covered Member ID Townsend Member ID Guarantor Name 04/16/2025 1 [employer] (MEDICARE REPLACEMENT/ ADVANTAGE - PPO) Ang Yadav [id number] Ang Yadav Notes Date Note Type Note Provider Name and Address Organization Details Recorded Time 04/13/2025 text/html Care Management - GeneralReported by PatientHPIFor prognosis, patient reportsexpected outcome: improveandprognosis: good. For context, patient reportsnot current smoker.ROS as noted in the HPI new admit after hospital stay from hip fracture. Kishore Barrios, [address], [address], [facility], Nancy 04/13/2025 15:02:20 04/18/2025 text/html Care Management - GeneralReported by PatientHPIFor prognosis, patient reportsexpected outcome: improveandprognosis: good. For context, patient reportsnot current smoker.ROS as noted in the HPI worsening pain over the weekend, reports pain goes down into knee on left side. Not Available Not Available Not Available
--- OUTSIDE RECORDS SUMMARY | 2025-04-20 13:08 | XMS_ITS | Data Portability ---
Author Organization [place] - [facility], [place] [address] Address [address] [place] [address] Care Team Providers Care Painter Ski Edge Name Role Phone LUCERO NAKITA Referring Provider LEE MUNOZ Primary Care Provider [phone] JOSELIN RAMOS Neurosurgeon LENNIE DIAZ Pain Management [phone] Assessment No assessment recorded. Plan of Treatment Reminders Order Date Submit Date Provider Last Modified By Organization Details Last Modified Time Details Appointments None recorded. Lab None recorded. Referral neurosurger y referral - Please contact pt to schedule apt for evaluation of lower extremity weakness, loss of bowel control 2017 018 ge Ramos MD, [address], [address], [place], [address], 8 17:48:50 Procedures lexiscan cardiolite stress test (PROC) - pt to be scheduled for EVAR 2016 017 [facility] (Outpatient Scheduling), [address], [place], [address], 7 16:25:09 Surgeries None recorded. Imaging CT, angiogram, abdomen + pelvis, w/wo contrast - f/u s/p EVAR. 2017 018 [facility] Centralized Scheduling, [address] [place], [address], 8 16:19:39 pulse volume recording 2016 017 abdon Not available 7 13:36:05 Medication Orders methylpredn isolone 32 mg tablet 2017 018 osvaldo zelayaDarlene [id number], [address] [place], [address], 8 10:46:04 Percocet 5 mg-325 mg tablet 2017 018 CHICHI [id number], [address] [place], [address], 2 09:06:38 Patient TargetsNo targets recorded. Patient Instructions Encounter Date Encounter Id Patient Instructions Last Modified By Organization Details Last Modified Time 05/20/2017 [id number] Smoking Cessation Not availab le 05/20/2017 10:00:15 [...] proce ed with proc. arbrn Not Available [facility] [address] [place], [address], 07/03/2017 05:44:24 07/10/19 18 07/10/2017 hospi nolvia labs inpat lab trends Not Available [facility] [address], [place], [address], 07/16/2017 02:26:05 05/16/20 17 04/29/2017 US, abdom [...] (PROC ) No observ ation record ed. [facility] [address] [place], [address], 06/20/2017 11:13:34 07/01/19 18 06/27/2017 MRI, lumba r spine , w/o contr ast No observ ation record ed. [email or web address] Not Available 08/07 16:35:45 07/02/19 18 07/01/2017 MRI, chest , w/o contr ast No observ ation record ed. banner Jorge L Ludwig MD [address] [facility] [address], [place], [address], 08/13/2017 12:37:04 07/09/19 18 07/09/2017 US, duple [...] ast No observ ation record ed. [email or web address] [facility] [address] [place], [address], 10/17/2017 14:57:37 09/18/19 18 09/16/2017 MRI, lumba r spine , w/o contr ast No observ ation record ed. Not Available 09/17/2017 10:34:45 Result Notes None recorded. Problems Name Problem SNOMED Code Status Onset Date Resolution Date Notes Provider Name and Address Organization Details Recorded Time Swelling - edema - symptom Active 2011 Robbie schulz [facility] 8 10:42:41 Malaise and fatigue 799283707 Active 2011 Robbie schulz [facility] 8 10:42:41 Subluxation of sternoclavicul ar joint 965956492 Active 2016 Robbie schulz [facility] 8 10:42:41 Abdominal aortic aneurysm 747884924 Active 2016 Robbie schulz [facility] 8 10:42:41 Tobacco dependence syndrome 55998622 Active 2016 Robbie schulz [facility] 8 10:42:41 Leukocytosis 769223240 Active 2016 Robbie schulz [facility] 8 10:42:41 Problem Notes None recorded. Procedures Surgical History Date Name Laterality Status Provider Name and Address Organization Details Recorded Time 07/08/19 18 ABDOMINAL AORTIC ANEURYSM REPAIR, ENDOVASCULAR (SURG) completed Shayan Cervantes [facility] 08/20/2017 16:35:57 05/29/20 17 PVR completed Raffy Reynoso [facility] 06/18/2017 13:59:12 Imaging Results None recorded. Procedure Notes None recorded. Medical Equipment None Reported. Allergies Allergen ID Allergen Name Allergen Category Reaction Reaction Severity Criticality Documentation Date Start Date Code Code System Note Provider Name and Address Organization Details Recorded Time 92773 Product containin g penicilli n (product) medicatio n Not available Not available Not available 05/16/2017 38167 8001 SNOMED Robbie schulz [facility] 7 14:48:38 45765 Iodinated contrast media (substanc e) medicatio n Not available Not available Not available 08/20/2017 92659 2004 SNOMED Trang schulz [facility] 8 12:34:18 Medications Name Sig Start Date [...] Updated DateTime 8 190.5 cm 26.9 kg/m2 71394.3 6 g 78 /min 96.2 [degF] 120/69 mm[Hg] [facility] 8 12:31:03 Date Recorded Body weight Body mass index (BMI) Body height Body temperature Heart rate Systolic And Diastolic Provider Name and Address Organization Details Last Updated DateTime 7 37018.3 6 g 26.9 kg/m2 190.5 cm 98.7 [degF] 82 /min 122/81 mm[Hg] Robbie Emanuel [facility] 7 09:41:56 Social History Question Answer Notes LastModified by Organizat ion Details LastModified Time Tobacco Smoking Status Current Every Day Smoker Robbie Girard [facility] 05/16/2017 14:48:46 Do You Have An Advance Directive? No Information n ot available 05/16/2017 What Is Your Level Of Caffeine Consumption? Moderate Information not available 05/20/2017 Do You Have A Directive To Physicians? No Information not available 05/16/2017 What Is The Highest Grade Or Level Of School You Have Completed Or The Highest Degree You Have Received? [id number] Information not available 08/20/2017 How Many Days [...] Like Food, Housing, Medical Care, And Heating? [id number] Information not available 08/20/2017 Which Of Your Hands Is Dominant? Right Information n ot available 05/20/2017 Up To Date On Immunizations Yes Information not available 05/16/2017 Do You Drink Alcohol? Yes Information not available 05/16/2017 Do You Use Tobacco? Yes Information not available 05/16/2017 Do You Live Alone? No I nformation not available 05/16/2017 Do You Have A Medical Power Of Acid Leveler? No Information not available 05/16/2017 What Was [...] anxious, or unable to sleep at night)? [id number] Information not available 08/20/2017 Family History Relationship [...] Are you taking Coumadin or Warfarin? N DVT/Blood Clot N Stroke/CVA/TIA N Hepatitis A/B/C N High Cholesterol N Neuropathy Y Atherosclerotic Disease Y Hypertension Y Kidney Disease N Immunizations Vaccine Type Date Status Note Provider Nam e and Address Organization Details Recorded Time Tdap completed Robbiegabrielle schulz [place] - [facility] 09/17/2017 10:42:45 Past Encounters Encounter ID Performer Location Encounter Start Date Encounter Closed Date Diagnosis/Indication Diagnosis SNOMED-CT Code Diagnosis ICD10 Code Diagnosis IMO Codes Diagnosis Note [id number] Raffy Reynoso MD [place] [address],[facility] [address] [place] [address] 05/20/2017 09:24:12 05/20/2017 10:13:56 Abdominal aortic aneurysm 185073404 I71.4 The patient has had multiple family [...] step so I doubt that this will glove turner and former to be of an arterial etiology. Tobacco de pendence syndrome 74160963 F17.200 Recommende d tobacco cessation for overall health and to reduce your risk for heart attack and stroke, avoid all forms of tobacco as well as secondhand smoke. Smoking and exposure to secondhand smoke have many other effects on your cardiovasc ular and overall health. These effects include fatty buildups in arteries. Benign ess ential hypertension 8354346 I10 Continue to monitor blood pressure, lowers risk of heart attack, heart failure, stroke, peripheral artery disease and kidney disease. Recommend diet with salt reduction, regular physical activity, maintain healthy BMI, and continue to comply with medication prescripti ons. Intermitte nt claudication due to atherosclerosis of [place] artery of limb 1639040641 107 I70.213 [id number] Raffy Reynoso MD [place] [address] [place] [address] 05/29/2017 10:25:15 05/29/2017 11:28:55 Atherosclerosis of arteries of the extremities 54277353 I70.213 [id number] SHAYAN CERVANTES NP [place] [address] [place] [address] 08/20/2017 12:01:30 08/20/2017 13:01:51 Abdominal aortic aneurysm 615933286 I71.4 From a surgical standpoint , he [...] this exam is completed. Spinal cord injury 91188 004 G95.89 He continues to experience significan [...] in the future. Benign ess ential hypertension 2271254 I10 Blood pressure is well controlled today. He will continue on lisinopril and verapamil. Allergy to contrast media 482348238 T50.8X5A Health Concerns Section Related Observation LastModified by Organization Detai ls LastModified Time None Recorded Concern Status LastModified by Organization Details LastModified Time None Recorded Advance Directives Directive N: Payers Insurance Date Sequence Insurance Name Policy Number Policy Townsend Covered Member ID Townsend Member ID Guarantor Name 04/01/2018 1 [id number] Ang Yadav [id number] Ang Yadav Notes Date Note Type [...] reportsexercise. For prior imaging, patient reportscta(05/19/17 at [facility]). For previous surgery, (none).Patient complains of his legs being weak, aching, and giving out. Timi Pradhan RN, BSN zeus [facility] 05/26/2017 11:45:35 08/20/2017 text/html Post-Op VisitRep orted by PatientHPIFor onset/timing, patient reportsdate of surgery: (07/08/17). For quality, patient reportsprocedure: (evar).ROS as noted in the HPI 12 POINT ROS NEGATIVE EXCEPT WHAT IS NOTED IN THE HPI Shayan schulz [facility] 08/20/2017 17:10:09
--- OUTSIDE RECORDS SUMMARY | 2025-04-20 13:08 | XMS_ITS | Encounter Summary ---
Author Organization [facility] Address [address] [place] [address] Care Team Providers Care Tool Engine Lathe Set Up Operator Name Role Phone Unavailable Primary Care Provider Unavailabl e Reason for Visit * Reason Onset Date Comments Primary Care Outreach 04/18/2025 Encounter Details Date Type Department Care Team ([facility] st Contact Info) Description 04/18/2025 Telephone [facility] Medicine [address] [phone] Rajesh Soria MD [address] [phone] Primary Care Outreach Social History Tobacco Use Types Packs/Day Years [...] Sex Assigned at Male 05/18/2024 5:16 PM CARPENTRY TEACHER Legal Sex Male 10:06 AM CDT Gender Identity Male 05/18/2024 5:16 PM CARPENTRY TEACHER Sexual Orientation Straight 05/18/2024 5: 16 PM CARPENTRY TEACHER documented as of this encounter Miscellaneous Notes * Telephone Encounter - Elaine Fleming CMA - 04/18/2025 3:13 PM CARPENTRY TEACHER 04/18/2025 3:15 PM Spoke with patient. He states he is now in a correction. Elaine ROCHA ENTRY TEACHER documented in this encounter Plan of Treatment Not on file documented as of this encounter Visit Diagnoses Not on filedocumented in this encounter Additional Health Concerns Assessment Noted Time PHQ-9 Depression Total Score: 4 05/25/20 11:05 AM CARPENTRY TEACHER documented as of this encounter
--- OUTSIDE RECORDS SUMMARY | 2025-04-20 13:08 | XMS_ITS | Continuity of Care Document ---
Author Organization [facility] Nancy Kay, [facility] [place] ([facility]) Address [address] [place] [address] Assessment No assessment recorded. Plan of Treatment [...] By Organization Details Last Modified Time 04/13/2025 [id number] Records reviewed . Fall resulted in hip fracture requiring surgical intervention. On for DVT prophylaxis. Post-op hemoglobin 10. Labs on Friday. [email or web address] Not available 04/13/2025 14:06:08 Reason for Referral None Reported. Problems Name Problem SNOMED Code Status Onset Date Resolution Date Notes Provider Name and Address Organization Details Recorded Time Post-disch arge follow-up 558676301 Active [facility]24 [facility]:04[facility]57 Closed fracture of hip 126600235 Active 2024 [facility] 14:04:58 Mass of left breast 3897499056612 9103 Active 2024 [facility] 14:04:59 Major depressive disorder 460389889 Active 2024 [facility] 11/05/202 5 14:05:01 Essential hypertensi on 22622993 [facility] 14:05:02 Therapeuti c opioid induced constipati on 7948301755192 02 [facility] 5 14:05:03 Coronary arterioscl erosis 64140901 [facility] 5 14:05:05 Chronic pain 91280416 [facility] 5 14:05:06 Problem Notes None recorded. Medical [...] % 97 % 167/102 mm[Hg] JANETTE MORAES [facility], [facility] 5 14:01:24 Social History None recorded. Functional Status None recorded. Mental Status None recorded. Family History Nothing Reported. Medical History No medical history recorded. Immunizations Vaccine Type Date Status Note Provider Nam e and Address Organization Details Recorded Time pneumococcal polysaccharide PPV23 7 completed Not Available [facility] 04/18/2025 14:32:53 COVID-19, mRNA, LNP-S, PF, 100 mcg/0.5mL dose or 50 mcg/0.25mL dose 1 completed Not Available [facility] 04/18/2025 14:32:53 Past Encounters Encounter ID Performer Location Encounter Start Date Encounter Closed Date Diagnosis/Indication Diagnosis SNOMED-CT Code Diagnosis ICD10 Code Diagnosis IMO Codes Diagnosis Note [id number] Kishore Barrios DO [facility]) [address] [place] [address] 04/13/2025 11:36:14 04/15/2025 17:11:40 Post-discharge follow-up [id number] Z09 771215 Closed fra cture of hip 708379649 S72.002S 3613692 Mass of left breast 1224 070742 1748238 N63.20 4735492740 Major depr essive disorder 200679963 F32.9 4886197674 Essential hypertension 41964119 I10 12179 Therapeuti c opioid induced constipation 1283816394 57174 K59.03 T40.2X5A 92495433 Coronary arteriosclerosis 30510262 I25.10 8913935366 Chronic pain 55475010 G8 9.29 391197 Health Concerns Section Related Observation LastModified by Organization Detai ls LastModified Time None Recorded Concern Status LastModified by Organization Details LastModified Time None Recorded Payers Encounter Date Sequence Insurance Name Policy Number Policy Town[place] Covered Member ID Townsend Member ID Guarantor Name 04/13/2025 1 [employer] (MEDICARE REPLACEMENT/ ADVANTAGE - PPO) Ang Yadav [id number] Ang Yadav Notes Date Note Type Note Provider Name and Address Organization Details Recorded Time 04/13/2025 text/html Care Management - GeneralReported by PatientHPIFor prognosis, patient reportsexpected outcome: improveandprognosis: good. For context, patient reportsnot current smoker.ROS as noted in the HPI new admit after hospital stay from hip fracture. Kishore Barrios DO [address] [place] [address], [phone], [facility] 04/13/2025 15:02:20
--- NOTE | 2025-04-20 13:15 | W.ED.EXTPRO ---
HPI - Extremity Problem General: Chief complaint: Extremity Problem,Nontraumatic Stated complaint: LT Hip Pain Time Seen by Provider: 04/20/25 13:02 History of Present Illness: 64-year-old man with a history of fatty liver disease, hyperlipidemia, AAA, coronary artery disease, hypertension, peripheral artery disease, hypertension and recent left hip surgery. He had left trochanteric femur nail about a week ago. He says he was doing well and was doing his exercises 3 days ago whenever he made a turn and suddenly his knee started hurting. Says it hurt and so bad that he screams out. No obvious deformities. No redness. He says his hip is okay. Related Data Home Medications ?Medication ?Instructions ?Recorded ?Confirmed oxycodone 15 mg tablet 15 mg PO QID 03/18/22 04/20/25 albuterol sulfate 90 mcg/actuation 2 puff inhalation QID PRN 04/10/25 04/20/25 aerosol inhaler Shortness Of Breath Or Wheezing baclofen 20 mg tablet 20 mg PO TID PRN Back Pain 04/10/25 04/20/25 gabapentin 300 mg capsule 300 mg PO TID 04/10/25 04/20/25 gabapentin 600 mg tablet 600 mg PO TID 04/10/25 04/20/25 pantoprazole 40 mg tablet,delayed 40 mg PO DAILY 04/10/25 04/20/25 release sennosides 8.6 mg-docusate sodium 1 tab PO BID 04/10/25 04/20/25 50 mg tablet (Senna with Docusate Sodium) tamsulosin 0.4 mg capsule 0.4 mg PO DAILY 04/10/25 04/20/25 verapamil 180 mg tablet,extended 180 mg PO DAILY 04/10/25 04/20/25 release Previous Rx's ?Medication ?Instructions ?Recorded atorvastatin 20 mg tablet 20 mg PO DAILY #90 tabs 01/05/25 ezetimibe 10 mg tablet 10 mg PO DAILY #90 tabs 01/05/25 isosorbide mononitrate 30 mg 30 mg PO DAILY #90 tabs 01/05/25 tablet,extended release 24 hr nitroglycerin 0.4 mg sublingual 0.4 mg sublingual Q5M PRN chest 01/05/25 tablet pain #25 tabs escitalopram oxalate 20 mg tablet 20 mg PO DAILY #90 tabs 03/17/25 apixaban 2.5 mg tablet (Eliquis) 2.5 mg PO BID 30 days #60 tabs 04/12/25 calcium 600 mg (as 1 tab PO BID #60 tabs 04/12/25 carbonate)-vitamin D3 10 mcg (400 unit) tablet Allergies Allergy/AdvReac Type Severity Reaction Status Date / Time Iodinated Contrast Media Allergy Unknown Verified 01/24/25 14:13 Review of Systems Narrative: Constitutional symptoms: Negative except as documented in HPI. Skin symptoms: Negative except as documented in HPI. Eye symptoms: Negative except as documented in HPI. ENMT symptoms: Negative except as documented in HPI. Respiratory symptoms: Negative except as documented in HPI. Cardiovascular symptoms: Negative except as documented in HPI. Gastrointestinal symptoms: Negative except as documented in HPI. Genitourinary symptoms: Negative except as documented in HPI. Musculoskeletal symptoms: Negative except as documented in HPI. Neurologic symptoms: Negative except as documented in HPI. Psychiatric symptoms: Negative except as documented in HPI. Endocrine symptoms: Negative except as documented in HPI. PFSH ED PFSH: Medical History (Updated 04/20/25 @ 14:19 by Tish Ogden MD) Gynecomastia Compression fracture of spine Tobacco use disorder NAFLD (nonalcoholic fatty liver disease) Mixed dyslipidemia AAA (abdominal aortic aneurysm) s/p endovascular graft repair CAD (coronary artery disease) Essential hypertension Major depressive disorder PAD (peripheral artery disease) Spinal cord injury Social History Smoking and tobacco/nicotine status: current every day tobacco/nicotine user cigarettes Alcohol intake: former Substance/Drug Use: current Substance/Drug use frequency: daily Physical Exam Narrative: EXAM NARRATIVE: General: Alert, no acute distress. Skin: warm and dry Head: Normocephalic Neck: Trachea midline Eye: Extraocular movements are intact. Ears, nose, mouth and throat: Oral mucosa moist Respiratory: Respirations are non-labored Musculoskeletal: Pain with movement of his knee. No redness. No swelling. No deformities. Gastrointestinal: Abdomen does not appear distended Neurological: Alert and oriented, No focal neurological deficit observed. Psychiatric: Cooperative, appropriate mood & affect. Course Vital Signs: Vital signs: Vital Signs Temperature 98.1 F 04/20/25 13:03 Pulse Rate 91 04/20/25 13:03 Respiratory Rate 18 11/12/25 13:03 Blood Pressure 132/81 04/20/25 13:03 Pulse Oximetry 94 04/20/25 13:03 Oxygen Delivery Me thod Room Air 04/20/25 13:03 MDM - Extremity (Nontraumatic) Medical Decision Making Medical decision making Patient's reason for coming to the emergency room: Knee pain Social determinants: Patient is currently in a halfway for rehab after hip surgery. I reviewed the patient's medical record. I reviewed recent operative report and discharge summary. I reviewed the patient's current home meds Patient is on oxycodone in the halfway 4 times a day. Alternate historians: None Differential diagnosis including but not limited to and based on the above HPI, review of systems and physical exam: In this patient with a musculoskeletal extremity traumatic injury and x-ray is being ordered to rule out fractures and dislocations. Orders placed to evaluate differential diagnosis based on the above differential, HPI and physical exam X-ray of the left hip and pelvis: Intact bail. No changes. This was reviewed and interpreted by myself the emergency room physician. I also reviewed the radiology report. X-ray of the left femur and knee: No acute fractures or dislocations. This was reviewed and interpreted by myself the emergency room physician. I also reviewed the radiology report. Assessment of risk: Level of risk: High risk patient. Multiple comorbidities. Recent surgery. snf patient. Hospitalization considerations: No indication for hospitalization today. Reexamination: Patient remained stable. No increased work of breathing. No altered mental status. No focal motor deficits. Assessment and plan: Acute knee pain ?Dilaudid in the emergency room - Discharged home - Discussed plan with patient. Answered any questions. - Evaluation and treatment of this problem were appropriate in the emergency setting. Lab Data Radiology Impressions Femur X-Ray 04/20/25 13:05 IMPRESSION: 1. Nondisplaced hip fracture with internal fixation stable in appearance. The remainder of the femur is intact. Hip/Pelvis X-Ray 04/20/25 13:05 IMPRESSION: 1. Nondisplaced left hip fracture with internal fixation. Stable. Knee X-Ray 04/20/25 13:05 IMPRESSION: 1. Mild DJD and joint effusion. Osteopenia. All radiology interpretation(s) finalized by discharge Discharge Plan Discharge Patient Disposition: Home Clinical Impression: Knee pain Condition: Stable Prescriptions: No Action escitalopram oxalate 20 mg tablet 20 mg PO DAILY Qty: 90 1RF atorvastatin 20 mg tablet 20 mg PO DAILY Qty: 90 3RF ezetimibe 10 mg tablet 10 mg PO DAILY Qty: 90 3RF isosorbide mononitrate 30 mg tablet extended release 24 hr 30 mg PO DAILY Qty: 90 3RF nitroglycerin 0.4 mg tablet, sublingual 0.4 mg sublingual Q5M PRN (Reason: chest pain) Qty: 25 2RF Rx Instructions: do not exceed 3 doses per episode oxycodone 15 mg tablet 15 mg PO QID gabapentin 600 mg tablet 600 mg PO TID Rx Instructions: along with 300mg [id number] total baclofen 20 mg tablet 20 mg PO TID PRN (Reason: Back Pain) sennosides-docusate sodium [Senna with Docusate Sodium] 8.6-50 mg tablet 1 tab PO BID verapamil 180 mg tablet extended release 180 mg PO DAILY tamsulosin 0.4 mg capsule 0.4 mg PO DAILY pantoprazole 40 mg tablet,delayed release (DR/EC) 40 mg PO DAILY gabapentin 300 mg capsule 300 mg PO TID Rx Instructions: along with 600mg [id number] total albuterol sulfate 90 mcg/actuation HFA aerosol inhaler 2 puff inhalation QID PRN (Reason: Shortness Of Breath Or Wheezing) calcium carbonate-vitamin D3 600 mg-10 mcg (400 unit) Tablet 1 tab PO BID Qty: 60 0RF Eliquis 2.5 mg tablet 2.5 mg PO BID 30 Days Qty: 60 0RF Discharge Orders: Discharge ED (Routine); Ordered 04/20/25 Ordered By: Tish Ogden Referrals: Nayan Abel DO [Physician, Orthopedics] - 4-7 days Referral Note: Please call for an appointment concerning your knee pain Rey Maria MD [Primary Care Provider, Family Practice] Discharge Diet: Usual diet Discharge Activity: Limit activity as instructed Patient Instructions: Opioid Safety, Pain Management, Patient Portal & Bam Instructions Activity Restrictions/Additional Instructions: Thank you for choosing [facility] for your healthcare needs today. You have been screened and evaluated and felt safe for discharge. Health conditions do change or evolve sometimes and as such it is important that you follow up with your Primary Doctor to be re checked, 3-5 days is a general good time frame for follow up. You are always welcome to return to the ED for re assessment if your symptoms are worsening or you have new concerns Print Language: Khmer Coding Level of Care Code ED Backend Developer for Sixto Rivera
[2025-04-20] MEDS: HYDROmorphone 0.5 MG/0.5 ML INJ 1 MG IVP (14:27)
--- NOTE | 2025-04-20 14:27 | PC.PHAR ---
Pt is doing rehab at [facility]
[2025-04-20 14:56] VITALS: BP 134/73; PULSE 92; O2SAT 92
== END 2025-04-20 14:57 | disposition home or self-care (01) ==
PROVIDERS: Emergency Provider Emergency Medicine; PCP Family Medicine
DX: M25.562 Pain in left knee (principal); Z79.01 Long term (current) use of anticoagulants; F17.210 Nicotine dependence, cigarettes, uncomplicated; E78.2 Mixed hyperlipidemia; I25.10 Atherosclerotic heart disease of native coronary artery without angina pectoris; I10 Essential (primary) hypertension
CPT/HCPCS: 73502; 73552; 73562; 96374; 99284; J1171

== ENCOUNTER → 2025-04-26 15:19 | Outpatient (BNVA) | payer MEDICARE, SELFPAY | PROVIDERS: PCP Family Medicine; Visit Provider Physician Assistant | DX: Z98.890 Other specified postprocedural states (principal) | CPT/HCPCS: 73502; 99024 ==